=== PATIENT | female | born 1930 | race Caucasian/White ===

== ENCOUNTER 2017-07-24 13:45 | Inpatient (IN) ==
--- NOTE | 2017-07-24 14:04 | Diag Imaging Result Doc PS360 ---
EXAM: CT HEAD W/O CONTRAST HISTORY: POSS. STROKE TECHNIQUE: CT of the head without contrast with dose reduction. COMMENT: The current study is compared without of 10/19/2013. There is an generalized cerebral atrophy and there is abnormal lucency in the periventricular white matter of the frontal lobes and in the external capsule. There are small lacunae present in the basal ganglia on the left and both thalami. The right thalamic abnormality is not as well demonstrated on the previous study but otherwise has been no significant change. Some mucosal thickening and fluid are present in the right sphenoid sinus. This is worse than on the previous examination. IMPRESSION: Chronic ischemic microvascular changes. No evidence of acute disease. Right sphenoid sinusitis. Electronically signed by Bryant Cortez 07/24/2017 2:01 PM
[2017-07-24 15:04] LABS: BASO% 0.1 % (0.0-0.8); HEMATOCRIT 33.9 % (37.0-47.0); HEMOGLOBIN 11.1 g/dL (12.0-16.0); IMM GRAN# 0.22 X1000 (0.0-0.04); IMM GRAN% 2.7 % (0.0-0.5); LYMPH# 0.15 X1000 (1.2-3.4); LYMPH% 1.8 % (20.5-51.1); MANUAL DIFF NEEDED? NO; MCH 39.2 PG (27-31); MCHC 32.7 g/dL (33-37); MCV 119.8 FL (81-99); MONO# 0.19 X1000 (0.11-0.59); MONO% 2.3 % (1.7-9.3); MPV 10.2 FL (7.4-10.4); NEUT% 93.1 % (42.2-75.2); PLT 188 X1000 (130-400); RBC 2.83 XMIL (4.2-5.4)
--- NOTE | 2017-07-24 15:12 | Diag Imaging Result Doc PS360 ---
EXAM: CHEST-PORTABLE HISTORY: hypotension TECHNIQUE: AP portable upright at 1505 COMMENT: There is cardiomegaly. Compared to 05/07/2017 there is been no significant change. IMPRESSION: Cardiomegaly. Electronically signed by Bryant Cortez 07/24/2017 3:10 PM
[2017-07-24 15:24] LABS: INR 3.78; PROTIME 43.2 Seconds (9.2-11.7)
[2017-07-24 15:31] LABS: ALBUMIN 3.6 g/dL (3.5-5.0); POTASSIUM 4.8 mmol/L (3.5-5.1); TOTAL BILIRUBIN 0.89 mg/dL (0.20-1.00)
[2017-07-24 15:36] LABS: URINE MICRO REVIEW NEEDED? NO; URINE SOURCE CATH
[2017-07-24 15:40] LABS: BILIRUBIN URINE NEGATIVE (NEGATIVE); BLOOD URINE SMALL (NEGATIVE); COLOR YELLOW; GLUCOSE URINE NEGATIVE (NEGATIVE); LEUKOCYTES URINE MODERATE (NEGATIVE); NITRITE URINE NEGATIVE (NEGATIVE); PROTEIN URINE TRACE mg/dL (NEGATIVE); SP GRAVITY URINE 1.009; TURBIDITY URINE HAZY (CLEAR); UROBILINOGEN URINE NORMAL (NORMAL)
[2017-07-24 15:42] LABS: UR EPITHELIAL CELLS <10 /HPF (<10); URINE BACTERIA 4+ /HPF; URINE RBC <10 /HPF (<10); URINE WBC <10 /HPF (<10)
--- NOTE | 2017-07-24 17:13 | PROVIDER DOCUMENTATION ---
This chart was entered by Deanna Laurent Scribe, acting as scribe for Shahbaz Ramirez MD. HPI-Neurological Disorder - General Stated Complaint: POSS. STROKE Time Seen by Provider: 07/24/17 13:47 Source: patient Allergies/Adverse Reactions: Patient Allergies Allergy/AdvReac Type Severity Reaction Status Date / Time Penicillins Allergy Intermediate RASH Verified 07/24/17 14:24 Home Medications: Home Medication List Medication Instructions Recorded Confirmed Last Taken Type Carvedilol [Coreg] 25 mg PO BID 10/19/13 12/21/16 12/20/16 20:00 History SIMVAstatin [Zocor] 20 mg PO QHS 10/19/13 12/21/16 12/20/16 20:00 History Losartan [Cozaar] 100 mg PO BID 09/14/14 12/21/16 12/20/16 09:00 History Acetaminophen [Tylenol] 2 each PO Q6-8H PRN PRN 12/21/16 12/21/16 Unknown History Docusate Sodium [Stool Softener] 100 mg PO DAILY PRN 12/21/16 12/21/16 Unknown History Furosemide [Lasix] 20 mg PO DAILY 12/21/16 12/21/16 Unknown History Gabapentin 300 mg PO QHS 12/21/16 12/21/16 12/20/16 20:00 History Hydroxyurea 500 mg PO DAILY 12/21/16 12/21/16 12/20/16 08:00 History Oxybutynin [Ditropan] 5 mg PO DAILY 12/21/16 12/21/16 12/20/16 08:00 History Potassium Chloride [Klor-Con 10] 10 meq PO DAILY 12/21/16 12/21/16 Unknown History Saline Nasal [place] [[place] Nasal 2 each MARILIN DAILY 12/21/16 12/21/16 12/20/16 09:00 History [place]] Tramadol [Ultram] 1 each PO QAM 12/21/16 12/21/16 12/20/16 08:00 History Tramadol [Ultram] 100 mg PO QHS 12/21/16 12/21/16 12/20/16 20:00 History Warfarin [Coumadin] 3 mg PO QHS 12/21/16 12/21/16 12/20/16 20:00 History - History of Present Illness-Neuro Nature of Presenting Problem: Pt is a 86 year old female who came to the ED with a cc of stroke like symptoms starting at 12:00. pt reports she has been weaker than normal, sliding out of the bed, and slurred speech. Pt reports she does not know how to spell her last name. Has fallen twice in the last two days. Severity: reports: mild Onset/Duration: reports: just prior to arrival Timing: reports: still present Context: reports: impaired speech Any recent trauma/injury?: reports: other (unsure) Character of Deficits: reports: new weakness (non focal), impaired speech Cognitive Baseline: alert but confused Gait Baseline: walks without assistance Associated Symptoms: reports: weakness. denies: short of breath, headache, chest pain, neck/back pain, fever/chills, slurred speech, vomiting Similar Symptoms Previously?: No Recently seen or treated by another doctor?: No Review of Systems - Adult - REVIEW OF SYSTEMS - ADULT Constitutional: denies: chills, fever Eyes: reports: no symptoms reported Ears, Nose, Mouth & Throat: reports: no symptoms reported Cardiovascular: denies: chest pain, syncope Respiratory: reports: no symptoms reported Gastrointestinal: denies: diarrhea, nausea, vomiting Genitourinary: reports: no symptoms reported Musculoskeletal: reports: no symptoms reported Integumentary: reports: no symptoms reported Neurological: reports: loss of balance, slurred speech. denies: numbness, seizure Psychiatric: reports: no symptoms reported Endocrine: reports: no symptoms reported Hematologic/Lymphatic: reports: no symptoms reported Allergic/Immunologic: reports: no symptoms reported All Other Systems: Reviewed and Negative Past History - Adult - PAST MEDICAL HISTORY-ADULT Review of Records: reports: Nursing Assessment Review, Medications Reviewed Cardiovascular: reports: HTN, hyperlipidemia Musculoskeletal: reports: arthritis, spinal fracture - PRIOR SURGERIES/PROCEDURES Surgical/Procedure History: reports: cholecystectomy, orthopedic (extremity) ( left wrist), other (Bladder Tack) - IMMUNIZATION STATUS Childhood Immunizations: See Nurse Assessment Flu Vaccine: See Nurse Assessment - SOCIAL HISTORY Smoking: non-smoker Physical Exam- Neurological - Physical Exam-Neuro Initial Vital Signs Reviewed: Yes General Appearance: appears well, alert, no apparent distress Eye Exam: bilateral eye: normal inspection, PERRL, EOMI HENMT: normocephalic/atraumatic, normal ENT inspection, other (tacky MM's). negative: frontal tenderness, maxillary tenderness Head Injury: no evidence of injury. negative: swelling, tenderness Neck: non-tender, full range of motion, supple. 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 Exam: facial asymmetry, facial droop (minimal left lower) Motor/Sensory: no motor deficit, no sensory deficit Neurologic: functional tester typewriters II-XII nml as tested (except some mild left lower facial asymmetry) Integumentary: normal color, warm/dry, other (poor turgor) Psych/Mental Status: normal mood/affect Progress - PLAN OF CARE/RESULTS Progress/Plan/Lab Results: Vital Signs - 8 hr 07/24/17 14:03 Temperature 98.3 F Pulse Rate 106 H Respiratory Rate 19 Blood Pressure 84/53 O2 Sat by Pulse Oximetry 94 L Laboratory Results - last 24 hr 07/24/17 07/24/17 07/24/17 14:46 14:46 14:46 WBC 8.23 RBC 2.83 L Hgb 11.1 L Hct 33.9 L MCV 119.8 H MCH 39.2 H MCHC 32.7 L RDW Std Deviation 22.9 H Plt Count 188 MPV 10.2 Immature Gran % (Auto) 2.7 H Neut % (Auto) 93.1 H Lymph % (Auto) 1.8 L [place] % (Auto) 2.3 Eos % (Auto) 0.0 Baso % (Auto) 0.1 Immature Gran # (Auto) 0.22 H Neut # (Auto) 7.66 H Lymph # (Auto) 0.15 L [place] # (Auto) 0.19 Eos # (Auto) 0.00 Baso # (Auto) 0.01 Segmented Neutrophils Not Reportable PT INR Sodium 139 Potassium 4.8 Chloride 102 Carbon Dioxide 24 L Anion Gap 13 BUN 42 H Creatinine 1.9 H Estimated GFR/1.73 m2 25 BUN/Creatinine Ratio 22 Glucose 82 Calculated Osmolality 287 Calcium 8.0 L Total Bilirubin 0.89 AST 123 H ALT 108 H Alkaline Phosphatase 47 Creatine Kinase 165 Troponin T Uja-F-Skmmxvjtzur Pept 07085 H Total Protein 6.0 L Albumin 3.6 Globulin 2.4 Albumin/Globulin Ratio 1.5 Urine Source Urine Color Urine Turbidity Urine pH Ur Specific [place] Urine Protein Ur Glucose (Stick) Ur Ketones (Stick) Urine Blood Urine Nitrite Urine Bilirubin Urobilinogen Dipstick Urine Leukocytes Urine WBC (Auto) Urine RBC (Auto) U Epithel Cells (Auto) Urine Bacteria (Auto) 07/24/17 07/24/17 07/24/17 14:46 14:46 15:10 WBC RBC Hgb Hct MCV MCH MCHC RDW Std Deviation Plt Count MPV Immature Gran % (Auto) Neut % (Auto) Lymph % (Auto) [place] % (Auto) Eos % (Auto) Baso % (Auto) Immature Gran # (Auto) Neut # (Auto) Lymph # (Auto) [place] # (Auto) Eos # (Auto) Baso # (Auto) Segmented Neutrophils PT 43.2 H INR 3.78 Sodium Potassium Chloride Carbon Dioxide Anion Gap BUN Creatinine Estimated GFR/1.73 m2 BUN/Creatinine Ratio Glucose Calculated Osmolality Calcium Total Bilirubin AST ALT Alkaline Phosphatase Creatine Kinase Troponin T 0.023 Fal-W-Inrpdfoijhq Pept Total Protein Albumin Globulin Albumin/Globulin Ratio Urine Source CATH Urine Color YELLOW Urine Turbidity HAZY Urine pH 5.0 Ur Specific [place] 1.009 Urine Protein TRACE A Ur Glucose (Stick) NEGATIVE Ur Ketones (Stick) NEGATIVE Urine Blood SMALL A Urine Nitrite NEGATIVE Urine Bilirubin NEGATIVE Urobilinogen Dipstick NORMAL Urine Leukocytes MODERATE A Urine WBC (Auto) <10 Urine RBC (Auto) <10 U Epithel Cells (Auto) <10 Urine Bacteria (Auto) 4+ Orders Category Date Time Status Oscar Cath Insertion ORDERED Care 07/24/17 14:22 Active CHEST-PORTABLE [RAD] Stat Exams 07/24/17 14:[address] HEAD W/O CONTRAST [CT] Stat Exams 07/24/17 13:46 Completed CBC WITH ELECTRONIC DIFF [HEME] Stat Lab 07/24/17 14:46 Completed CK PROFILE [SP CHEM] Stat Lab 07/24/17 14:46 Completed COMPREHENSIVE METABOLIC PANEL [CHEM] Stat Lab 07/24/17 14:46 Completed PRO B-NATRIURETIC PEPTIDE Stat Lab 07/24/17 14:46 Completed PROTIME WITH INR [COAG] Stat Lab 07/24/17 14:46 Completed TROPONIN T Stat Lab 07/24/17 14:46 Completed URINALYSIS-1 [URINALYSIS] Stat Lab 07/24/17 15:10 Completed Result Diagrams: 07/24/17 14:46 07/24/17 14:46 - EKG 1 Rate: 101 Rhythm: Afib/flutter with RVR [place]: left QRS: NSIVCD ST Wave: non-specific ST changes - CT/MRI 1 CT Study: Head (chronic ischemic microvascular changes. right sphenoid sinusitis ) - CONSULTS/PCP/HOSPITALIST Notification #1 *Consult/PCP/Hospitalist*: Hospitalist Time Discussed: 16:32 Consult Disposition: Will see in ED, Admit Departure - Departure Date of Disposition Decision: 07/24/17 Time of Disposition Decision: 16:45 DIAGNOSIS: Dehydration, Multiple falls, Atrial fibrillation with rapid ventricular response UTI (urinary tract infection) Qualifiers: Urinary tract infection type: site unspecified Hematuria presence: with hematuria Qualified Code(s): N39.0 - Urinary tract infection, site not specified ; R31.9 - Hematuria, unspecified Hypotension Qualifiers: Hypotension type: unspecified hypotension type Qualified Code(s): I95.9 - Hypotension, unspecified Disposition: ADMITTED INPATIENT 09 Certified Medical Emergency: Emergent Condition: Stable Referrals and Follow-Ups: Carlos Loja MD [Primary Care Provider] - - Critical Care Note This patient required my direct & personal management of CC.: No Attestation - Physician/ ALAINA Attestation Patient care was provided by Advanced Practice Provider:: No The physician spent face to face time with patient:: Yes Advanced Practice Provider documentation review:: Supervising physician onsite and consulted in the evaluation and care of this patient. The physician did have a face to face encounter with the patient. This chart was documented by the indicated scribe, (Deanna Laurent Scribe) and accurately reflects the services I performed and decisions made by me, Shahbaz Ramirez MD, as attested by the provider's signature.
[2017-07-24] MEDS ORDERED: NS 500 ML ONE (17:41)
--- NOTE | 2017-07-24 17:59 | HISTORY AND PHYSICAL ---
HISTORY OF PRESENT ILLNESS: This is an 86-year-old white female, who apparently was doing fairly well at [facility]. I think she is at independent living. But this morning, the last couple days, her niece says she feels it seems to be a little more weak, balance not as well. Her strength is poor, and this morning she somehow fell while she was walking with her walker. She has not eaten today or drank much fluid. The nurse did check her out and did not find anything in particular unusual. She has not had chest pain. No fever or chills. Denied any specific complaints. She is just very tired, not very talkative. Blood pressure was running 60s to 80s systolic when she arrived. Denies any history of dysuria or gross hematuria or abdominal pain, productive cough, pleuritic pain, sore tender joint. She does complain of arthritis. PAST MEDICAL HISTORY: Includes: 1. Congestive heart failure. 2. Hypertension. 3. Hyperlipidemia. 4. Last time she was here in December of this year with shortness of breath and I think at that time she had not taken her Lasix for a couple days. PAST SURGICAL HISTORY: 1. Right hip pinning. 2. Cholecystectomy. ALLERGIES.: Penicillin. SOCIAL HISTORY: No history of smoking or alcohol or illicit drugs. She is in an assisted living facility at [facility]. FAMILY HISTORY: She has a history of coronary artery disease. Otherwise no pertinent history reported. No history of diabetes, and they do not give a history of dementia. REVIEW OF SYSTEMS: Given by the niece. They have not noticed any weight gain or loss. No fever or chills.HEENT: No real change that they could notice in her hearing or visual acuity. Respiratory: No increased work of breathing or dyspnea. Cardiovascular: No chest pain or tachy palpitation. GI/: No gross hematuria or dysuria. Musculoskeletal/Neurologic: No focal complaints. PHYSICAL EXAMINATION: GENERAL: She is sleeping but easy to arouse and she does respond to questions. She seems to be comfortable. VITAL SIGNS: Temperature 98.3 degrees, pulse 106, respirations 19, blood pressure 84/53. HEENT: Pupils are equal. CVP less than 6 cm. LUNGS: Clear anterior lateral. CARDIOVASCULAR: Regular rhythm and rate without murmur or S3. ABDOMEN: Soft, nontender, nondistended. Positive bowel sounds. No hepatosplenomegaly. EXTREMITIES: Without clubbing, cyanosis, or edema. Conjunctivae pink. NECK: The neck is supple. Carotid radial and femoral pulses seem to be 2+ and symmetrical. No cervical, supraclavicular, or axillary adenopathy. Weight 150 pounds. Urine output since she has been here about 350 mL. LAB: White count 8230, hematocrit 33, platelet count 188,000. Sodium 139, potassium 4.3, chloride 102, bicarb 27, BUN 42, creatinine 1.9. Blood sugar was 82. Calcium was 8.0. AST 123, ALT 108, slightly elevated. Troponin was 0.23. ProBNP was 26,838. Albumin 36. ProTime 43. INR 3.78. Urinalysis with 4+ bacteria, moderate amount of leukocytes. IMAGING: Chest x-ray: Some cardiomegaly but otherwise no pulmonary infiltrates. CT of the head: Chronic ischemic microvascular changes but no acute disease. REVIEW OF HER HOME MEDICINES: She takes docusate stool softener 100 mg a day. Lasix 20 mg a day, gabapentin 300 mg p.o. at bedtime, hydroxyurea 500 mg p.o. daily, Cozaar 100 mg b.i.d., Ditropan 5 mg a day, Klor-Con 10 mEq p.o. daily, Zocor 20 mg at bedtime, tramadol 100 mg at bedtime, and also tramadol I think she takes 1 in the morning that may be 100 mg as well. She is on Coumadin 3 mg a day. ASSESSMENT AND PLAN: 1. General lethargy and a little more confusion, metabolic encephalopathy, hypotension. She has not eaten or drank all day. She appears to be a little dry. I am going to give her some volume, normal saline. I am going to hold her losartan. I am going to hold her tramadol for now, and hold her Lasix. The Coreg I am going to cut down to 6.25 twice a day for now. I do not want to take her all way off as I do not think she will have much rebound with 6.25. 2. She has Coumadin toxicity. We are going to hold her Coumadin. No sign of active bleeding at this time. I do not think she needs fresh frozen or vitamin K at this time. 3. I am going to hold her Ditropan. She has a Oscar catheter in right now. 4. She has 4+ bacteria and numerous leukocytes. Not sure if she is symptomatic but I am going to treat her for a urinary tract infection. I will use Levaquin as she is allergic to penicillins. We will give her 500 mg IV daily. 5. Acute renal injury. Looking at her creatinine, back in December it was 0.9 so she has some acute renal insufficiency and I think this is probably prerenal. 6. Her proBNP is 26,000, but she is not volume overloaded at this time but aware of that. I think she needs to have a little fluid volume so I will give her some normal saline. We will check her thyroid and B12 and folate and magnesium, cortisol level in the morning. They give a history of her having phlebotomies, and I do not know if she has had hemochromatosis. I will check a ferritin level to see if we can find anything in her records to that accordance. But right now, hematocrit is 33, platelet count looks good at 188,000. We will check serial cardiac enzymes and EKG. cc: Saroj Moreau MD
[2017-07-24] MEDS ORDERED: COLACE PO PRN (18:19)
[2017-07-24] MEDS: NS 1,000 ML IV SCH (19:36)
[2017-07-24] MEDS: LEVAQUIN 250 MG/D5W 250 MG/50 ML IVPB IV SCH (19:36)
[2017-07-24 20:18] LABS: UR CREAT RANDOM 82.2 mg/dL (11-20)
[2017-07-24] MEDS: COREG PO SCH (22:44)
[2017-07-25 05:54] LABS: BASO% 0.1 % (0.0-0.8); EOS# 0.01 X1000 (0.0-0.7); EOS% 0.1 % (0.0-10.0); HEMATOCRIT 31.1 % (37.0-47.0); IMM GRAN% 13.7 % (0.0-0.5); LYMPH# 0.43 X1000 (1.2-3.4); LYMPH% 3.7 % (20.5-51.1); MANUAL DIFF NEEDED? YES; MCH 38.5 PG (27-31); MCHC 32.2 g/dL (33-37); MCV 119.6 FL (81-99); MONO# 0.55 X1000 (0.11-0.59); MONO% 4.7 % (1.7-9.3); MPV 10.2 FL (7.4-10.4); NEUT% 77.7 % (42.2-75.2); PLT 155 X1000 (130-400)
[2017-07-25 05:59] LABS: ALBUMIN 3.3 g/dL (3.5-5.0); CALCIUM 7.9 mg/dL (8.8-10.2); POTASSIUM 4.7 mmol/L (3.5-5.1); TOTAL BILIRUBIN 0.83 mg/dL (0.20-1.00); TOTAL PROTEIN 5.9 g/dL (6.3-8.3)
[2017-07-25 06:07] LABS: INR 3.53; PROTIME 40.2 Seconds (9.2-11.7); PTT 54.5 Seconds (22.0-36.0)
[2017-07-25 06:14] LABS: FREE T4 0.93 ng/dL (0.93-1.70)
[2017-07-25 06:34] LABS: CK INDEX 2.3 (0.0-2.5); CK-MB 4.98 ng/mL (0.0-5.0)
[2017-07-25 06:37] LABS: BANDS 14 % (0-1); LYMPHS 4 % (21-51); MONO 8 % (1-9)
--- NOTE | 2017-07-25 07:52 | PROGRESS NOTE ---
DATE: 07/25/2017 SUBJECTIVE: Ms. Huizar did not sleep at all last night, but she is much more awake and alert. OBJECTIVE: Temperature 98.1 degrees, pulse 108, respirations 16. Blood pressure 102/66. CVP is less than 6 cm. Lungs are clear in all lung ross. Cardiovascular: Regular rhythm and rate without murmur or S3. Abdomen is soft. Urine output was 1300 mL. LABORATORY DATA: Lab from this morning reviewed. Hematocrit stable at 31. Sodium 141, potassium 4.7, chloride 106, bicarb 23. BUN 45, creatinine 1.6. Liver functions have come down nicely. Transaminases ASSESSMENT AND PLAN: 1. General lethargy and confusion, some hypotension, and she is a little on the dry side. This seems to have improved. I did hold a lot of her medications. 2. Coumadin toxicity. Continue to hold Coumadin. 3. Holding her Ditropan. She has a Oscar catheter in now. I will probably maybe try and stop that this afternoon. 4. 4+ bacteremia. Difficult to know if this is symptomatic, but treating her with IV Levaquin 500 mg a day. 5. Acute renal injury, and we will continue fluids, hopefully will improve. 6. ProBNP was elevated. Looking back at echocardiogram, she has mild systolic dysfunction. Ejection fraction 40%; her last measurement. This was on echo done in December,. I want to watch her today and keep Oscar catheter in, and we may stop the Oscar catheter this afternoon. cc: Saroj Moreau MD
[2017-07-25] MEDS: AYR NASAL SPRAY NAS SCH (08:58)
[2017-07-25] MEDS: COREG PO SCH ×2 (08:58→20:05)
[2017-07-25] MEDS: HYDREA PO SCH (09:11)
[2017-07-25] MEDS: NS 1,000 ML IV SCH (10:48)
[2017-07-25] MEDS ORDERED: CALMOSEPTINE OINTMENT TOP ONE (18:04)
[2017-07-25] MEDS: LEVAQUIN 250 MG/D5W 250 MG/50 ML IVPB IV SCH (18:12)
[2017-07-25] MEDS ORDERED: CORDARONE 150 MG/D5W 150 MG/100 ML IV.SOLN IV ONE (22:00)
[2017-07-25] MEDS ORDERED: CORDARONE 360 MG/D5W 360 MG/200 ML IV.SOLN IV ONE (22:10)
[2017-07-26] MEDS ORDERED: BENADRYL IV ONE (00:14)
[2017-07-26] MEDS: NS 1,000 ML IV SCH (01:52)
[2017-07-26] MEDS: TYLENOL PO PRN ×2 (02:32→13:24)
[2017-07-26] MEDS ORDERED: CORDARONE 540 MG in D5W 289.2 ML IV ONE ×2 (04:00→15:24)
--- NOTE | 2017-07-26 04:20 | PROGRESS NOTE ---
DATE: 07/24/2017 ADDENDUM: Apparently when she 1st arrived she was in atrial fibrillation with rapid rate with blood pressure in the 70s and 80s. I looked back in old echocardiogram, left ventricle at that time this was on December 2016 was normal in size. End-diastolic dimension 4.7 cm. There is no significant left ventricular hypertrophy. Systolic ejection fraction 40% with global hypokinesis. Aortic valve looked like it opened normally, no sign of valvular dysfunction. There was severe left atrial enlargement at 5.3 cm. Right ventricle appeared to be normal size, mild reduction in RV systolic function. Right ventricular systolic pressure about 36, moderate amount of tricuspid regurgitation. So we will try and put her up on CIC, see if we can let her blood pressure come up and give her a little bit of volume. I will keep her on her Coreg and I think she was getting 12.5 twice a day. I will cut that down to 6.25 twice a day and will check an EKG and check cardiac enzymes in the morning as well as T4 and TSH. cc: Saroj Moreau MD
--- NOTE | 2017-07-26 05:49 | EKG Report ---
Test Performed on : 07/25/2017 9:45:47 PM Test Reason : Heart rate change Blood Pressure : / mmHG Vent. Rate : 128 BPM Atrial Rate : 117 BPM P-R Int : 000 ms QRS Dur : 126 ms QT Int : 326 ms P-R-T Axes : 000 -65 109 degrees QTc Int : 475 ms Atrial fibrillation. with rapid ventricular response. Left axis deviation Nonspecific intraventricular block Cannot rule out Septal infarct , age undetermined Possible Lateral infarct , age undetermined Abnormal ECG When compared with ECG of 25-JUL-2017 07:11, (Unconfirmed) [place] has changed. Confirmed by Yang Nunez MD ([id number]) on 07/28/2017 6:16:57 PM
--- NOTE | 2017-07-26 05:49 | EKG Report ---
Test Performed on : 07/25/2017 07:11:13 AM Test Reason : chest pain Blood Pressure : / mmHG Vent. Rate : 117 BPM Atrial Rate : 117 BPM P-R Int : 000 ms QRS Dur : 126 ms QT Int : 378 ms P-R-T Axes : 000 229 046 degrees QTc Int : 527 ms Atrial fibrillation. with premature supraventricular complexes. Right superior axis deviation Nonspecific intraventricular block Possible Inferior infarct , age undetermined Possible Anterolateral infarct , age undetermined Abnormal ECG When compared with ECG of 24-JUL-2017 18:27, (Unconfirmed) [place] has changed. Confirmed by Yang Nunez MD ([id number]) on 07/28/2017 6:12:05 PM
--- NOTE | 2017-07-26 06:20 | EKG Report ---
Test Performed on : 07/24/2017 6:27:45 PM Test Reason : chest pain Blood Pressure : / mmHG Vent. Rate : 117 BPM Atrial Rate : 150 BPM P-R Int : 000 ms QRS Dur : 126 ms QT Int : 362 ms P-R-T Axes : 000 -50 259 degrees QTc Int : 504 ms Atrial fibrillation. with rapid ventricular response. Left axis deviation Nonspecific intraventricular block Possible Inferior infarct , age undetermined Possible Anterolateral infarct (cited on or before 05-MAY-2016) Abnormal ECG When compared with ECG of 24-JUL-2017 14:00, (Unconfirmed) T wave inversion no longer evident in Lateral leads Confirmed by Yang Nunez MD ([id number]) on 07/28/2017 5:52:09 PM
--- NOTE | 2017-07-26 07:54 | EKG Report ---
Test Performed on : 07/26/2017 07:29:16 AM Test Reason : afib Blood Pressure : / mmHG Vent. Rate : 119 BPM Atrial Rate : 119 BPM P-R Int : 000 ms QRS Dur : 118 ms QT Int : 302 ms P-R-T Axes : 000 -63 137 degrees QTc Int : 424 ms Atrial fibrillation. with rapid ventricular response. Left axis deviation Inferior infarct , age undetermined Anteroseptal infarct (cited on or before 25-JUL-2017) Abnormal ECG When compared with ECG of 25-JUL-2017 21:45, (Unconfirmed) Nonspecific T wave abnormality now evident in Inferior leads Confirmed by Yang Nunez MD ([id number]) on 07/28/2017 6:23:23 PM
--- NOTE | 2017-07-26 08:21 | EKG Report ---
Test Performed on : 07/24/2017 2:00:50 PM Test Reason : No Order in [employer] Blood Pressure : / mmHG Vent. Rate : 101 BPM Atrial Rate : 096 BPM P-R Int : 000 ms QRS Dur : 122 ms QT Int : 352 ms P-R-T Axes : 000 -54 214 degrees QTc Int : 456 ms Atrial fibrillation. with rapid ventricular response. Left axis deviation Inferior infarct , age undetermined Anterior infarct (cited on or before 05-MAY-2016) ST \T\ T wave abnormality, consider lateral ischemia Abnormal ECG When compared with ECG of 07-MAY-2017 18:24, T wave inversion more evident in Lateral leads Unconfirmed Result
[2017-07-26] MEDS: HYDREA PO SCH (08:33)
[2017-07-26] MEDS: COREG PO SCH ×2 (08:33→20:11)
[2017-07-26] MEDS: AYR NASAL SPRAY NAS SCH (08:35)
--- NOTE | 2017-07-26 09:41 | PROGRESS NOTE ---
DATE: 07/26/2017 SUBJECTIVE: An 86-year-old at [facility]. Last couple days, she has been very weak. Balance has been poor and she fell while walking with her walker. Then, the following morning, trying to get out of bed, she fell down to the floor, slipped down to the floor. She has not been sleeping and apparently blood pressure has been running 60 to 80s systolic when she got to the emergency room. She has a history of congestive heart failure, hypertension, and hyperlipidemia. She was here last December with shortness of breath. Was given some Lasix and diuresed at that time. She did have Coumadin toxicity, getting Coumadin for atrial fibrillation. Last night, atrial fibrillation with rate accelerated. Did not get any sleep last night. PHYSICAL EXAMINATION: Vital Signs: Temperature 97.6 degrees, pulse 70, respirations 16, blood pressure 117/77. HEENT: Pupils were equal. Neck: No distended neck veins. Lungs: Clear in all lung ross. Cardiovascular Examination: Irregular rhythm and irregular rate without murmur or S3. Abdomen: Soft. Skin: Is warm and dry. Is and Os: Urine output is 2000 mL. LAB: From yesterday reviewed. Hematocrit stable at 31. Chemistries from yesterday, creatinine was 1.6, come down from 1.9. Her EKG shows atrial fibrillation, left axis deviation, loss of anterior forces in the anteroseptal leads. Rate was 120 on this EKG. ASSESSMENT AND PLAN: 1. General lethargy and confusion, weakness, hypotension. [place] she was a little dry. Acute renal injury. I think it is prerenal. Creatinine is improving. Continue to give her some fluids. 2. Atrial fibrillation which I think is chronic. We are holding the Coumadin. She was started on amiodarone. I will Ask cardiology to evaluate to see if we need to pursue cardioversion or just control her rate. 3. Coumadin toxicity. Holding the Coumadin. Her prothrombin time this morning is down to 40. When she came in, it was 43. INR is 3.53. She shows no sign of active bleeding. I do not think we need fresh frozen or vitamin K at this point. 4. Bacteremia. We gave her some Levaquin. She had 4+ bacteriuria so difficult to know if this was really asymptomatic urinary tract infection but treating accordingly, treating as if it is an infection. 5. Acute renal injury. I suspect most of this is prerenal. 6. ProBNP elevated. Echocardiogram in the past showed ejection fraction of 40%. Echocardiogram done in December of 2016 with dilated atrium. We will ask cardiology to help decide how to manage her atrial fibrillation. cc: Saroj Moreau MD
[2017-07-26] MEDS ORDERED: LASIX IV ONE (12:09)
--- NOTE | 2017-07-26 12:37 | CONSULTATION ---
DATE OF CONSULTATION: 07/26/2017 DIAGNOSES: 1. Heart failure. 2. Atrial fibrillation. 3. Rapid ventricular rate. HISTORY OF PRESENT ILLNESS: Ms. Sol Huizar is an 86-year-old lady, who is at the [facility] the last couple of days. She has been noticing having more weakness and unable to move, and has noticed low blood pressure was as well. Blood pressures were running into the 60s and 80s systolic. She was admitted here with significant weakness and was noted to be in atrial fibrillation with rapid ventricular rate. She has chronic atrial fibrillation. She was diagnosed to have urinary tract infection for which she has been treated on with medications. She denies any chest pain. At the time of my examination, patient denies chest pain. She feels that she is more short of breath as well. REVIEW OF SYSTEMS: A 14-point review of system was done. GI System: There is no history of nausea, vomiting, diarrhea. There is no history of hematemesis or melena. Central nervous system: No focal weakness to suggest a CVA or TIA. : As above. Endocrine System: Stable. PAST MEDICAL HISTORY: LV dysfunction, severe mitral regurgitation, chronic atrial fibrillation, anticoagulation therapy, history of systolic heart failure, hypertension, hyperlipidemia, essential hemorrhagic thrombocythemia, and a history of polycythemia followed by oncology services. HOME MEDICATIONS: Coreg 25 mg twice a day, losartan 100 mg, simvastatin 20, Lasix 20 mg p.o., hydralazine 25 mg twice daily, Coumadin, potassium supplements, hydroxyurea, gabapentin, oxybutynin. ALLERGIES: Patient is allergic to penicillin. SOCIAL HISTORY: She does not smoke. Does not drink. PHYSICAL EXAMINATION: Vital Signs: Blood pressure was 117/77. When she came in to the hospital, she had low blood pressures in 84, then systolic in the 90s. Cardiovascular: Jugular venous pressure was normal. There was systolic murmur in the mitral area. Lungs: Bibasilar inspiratory crepitations were noted. Abdomen: Soft, nontender. There was no guarding or rigidity. Bowel sounds were heard. Central nervous system: Alert, oriented, was moving all 4 extremities. Extremities: Revealed no pedal edema. ASSESSMENT AND PLAN: Ms. Sol Huizar is an 86-year-old lady who has left ventricular dysfunction, severe mitral regurgitation, chronic atrial fibrillation, history of heart failure is noted to have low blood pressures in the 80s as well as increasing weakness. When she came in, she had atrial fibrillation, which has been chronic with rapid rate. She was started on amiodarone intravenously to control the rate as well as she was hypotensive. RECOMMENDATIONS: 1. As far as atrial fibrillation is concerned, this is chronic atrial fibrillation in the setting of LV dysfunction and severe mitral regurgitation. Cardioversion will not be helpful as this is a chronic issue, and she will revert back into atrial fibrillation. So I would discontinue her on IV amiodarone since that this is been started. Change her to amiodarone p.o., as if the rate would be better controlled with that, she would not revert into heart failure more frequently. 2. History of left ventricular dysfunction with congestive heart failure. We will get a limited echocardiogram to assess left ventricular function again. I will discontinue the intravenous fluids, as she is more short of breath with inspiratory crackles at the present time. I will get a chest x-ray and give her Lasix IV 40 mg now and put her back on 20 mg Lasix daily. 3. She has been noted to be hypotensive in spring. Will decrease her Coreg to 12.5 mg twice a day, cut her losartan to 50, and hold off on her hydralazine which she had been taking at home. 4. As far as anticoagulation therapy is concerned, we will recheck her PT/INR restart when her INR is at 2.5. She has thrombocythemia, is on hydroxyurea at home and is followed by oncology. I have not made any changes. Thank you for the consult. We will follow hospital course. cc: Braden Lopez MD
--- NOTE | 2017-07-26 12:39 | Diag Imaging Result Doc PS360 ---
CHEST-PORTABLE - 07/26/2017 INDICATION: dyspnea TECHNIQUE: COMPARISON: 07/24/2017 FINDINGS: Stable cardiomegaly. There is worsening pulmonary vascular congestion. No obvious infiltrates or edema. There are probably trace pleural effusions. IMPRESSION: Perhaps slight worsening pulmonary vascular congestion. Electronically signed by Leonardo Clarke 07/26/2017 12:36 PM
--- NOTE | 2017-07-26 13:35 | EKG Report ---
Test Performed on : 07/26/2017 1:14:15 PM Test Reason : CP Blood Pressure : / mmHG Vent. Rate : 123 BPM Atrial Rate : 108 BPM P-R Int : 000 ms QRS Dur : 128 ms QT Int : 364 ms P-R-T Axes : 000 -57 118 degrees QTc Int : 521 ms Atrial fibrillation. with rapid ventricular response. Left axis deviation Nonspecific intraventricular block Inferior infarct , age undetermined Cannot rule out Anteroseptal infarct , age undetermined Abnormal ECG When compared with ECG of 26-JUL-2017 13:13, (Unconfirmed) No significant change was found Confirmed by Yang Nunez MD ([id number]) on 07/28/2017 6:28:26 PM
[2017-07-26] MEDS ORDERED: LANOXIN IV ONE (15:26)
[2017-07-26] MEDS: LEVAQUIN 250 MG/D5W 250 MG/50 ML IVPB IV SCH (17:38)
[2017-07-27 05:57] LABS: CALCIUM 8.1 mg/dL (8.8-10.2); MAGNESIUM 2.1 mg/dL (1.5-2.7); POTASSIUM 3.7 mmol/L (3.5-5.1)
[2017-07-27 05:58] LABS: INR 1.95; PROTIME 21.4 Seconds (9.2-11.7)
[2017-07-27] MEDS: COZAAR PO SCH (08:02)
[2017-07-27] MEDS: HYDREA PO SCH (08:02)
[2017-07-27] MEDS: CORDARONE PO SCH ×2 (08:02→21:07)
[2017-07-27] MEDS: AYR NASAL SPRAY NAS SCH (08:03)
[2017-07-27] MEDS: COREG PO SCH ×2 (08:03→21:07)
[2017-07-27] MEDS: LASIX PO SCH (08:03)
[2017-07-27] MEDS ORDERED: CORDARONE PO SCH (09:00)
[2017-07-27] MEDS: MAXIPIME 1 GM in NS 50 ML IV SCH ×2 (11:06→21:08)
--- NOTE | 2017-07-27 18:08 | PROGRESS NOTE ---
DATE: 07/27/2017 SUBJECTIVE: Today Ms. Huizar referred to be doing relatively fine. She denies any acute medical problem. She was actually in the midst of doing an echocardiogram. OBJECTIVE: Vital signs: Blood pressure is 109/76, pulse of 99, respirations 18, temperature 97.7 degrees. General: Ms. Huizar is an 86-year-old very pleasant, female. She is in bed, in no distress. HEENT: Mucosa is pink and moist. Anicteric. Acyanotic. Neck: Supple. Chest: Good air entry bilaterally. There is bilateral posterior crepitations. No rhonchi. Cardiovascular: Regular rate and rhythm. Abdomen: Soft, nontender. Bowel sounds are present. Extremities: No pedal edema. EMD SPECIAL EDUCATION TEACHER: Patient is awake and alert. No focal neurological deficit. Cardiac. LABORATORY DATA: Sodium is 145, potassium is 3.7, chloride is 108, bicarb is 22, creatinine is 1.4. I's and O's: Oscar output is 1500 for a total balance of 297 positive balance. Blood culture is positive for E coli. MEDICATIONS: Include: 1. Amiodarone 400 b.i.d. 2. Carvedilol 12.5 b.i.d. 3. Cefepime 1 g q.12. 4. Furosemide 20 mg daily. 5. Hydroxyurea. ASSESSMENT: 1. Hypotension on presentation which is multifactorial including sepsis as well as low cardiac output from atrial fibrillation, RVR. 2. Escherichia coli bacteremia likely from urinary tract infection. 3. Generalized weakness due to underlying sepsis as well as low perfusion from low cardiac output. 4. Atrial fibrillation, RVR on presentation. Currently rate controlled. 5. History of congestive heart failure with ejection fraction of 40%, likely acute on chronic. So today we will switch Ms. Huizar's antibiotics to cefepime because it resistant to levofloxacin which patient was on. We will continue the IV antibiotics for a total of 10 days. In terms of the atrial fibrillation, this seems to be rate controlled. We will continue with amiodarone and carvedilol for rate control. Patient is in the midst of doing an echocardiogram. We will follow up with the results. cc: Blaine Sam MD
[2017-07-28 05:22] LABS: BASO% 0.1 % (0.0-0.8); EOS# 0.01 X1000 (0.0-0.7); EOS% 0.1 % (0.0-10.0); HEMATOCRIT 29.9 % (37.0-47.0); HEMOGLOBIN 9.9 g/dL (12.0-16.0); IMM GRAN# 0.06 X1000 (0.0-0.04); IMM GRAN% 0.8 % (0.0-0.5); LYMPH# 0.67 X1000 (1.2-3.4); LYMPH% 9.4 % (20.5-51.1); MANUAL DIFF NEEDED? YES; MCHC 33.1 g/dL (33-37); MCV 117.7 FL (81-99); MONO# 0.38 X1000 (0.11-0.59); MONO% 5.3 % (1.7-9.3); MPV 10.7 FL (7.4-10.4); NEUT% 84.3 % (42.2-75.2); PLT 137 X1000 (130-400); RBC 2.54 XMIL (4.2-5.4)
[2017-07-28 05:40] LABS: CALCIUM 8.3 mg/dL (8.8-10.2); POTASSIUM 3.1 mmol/L (3.5-5.1)
[2017-07-28 06:00] LABS: LYMPHS 4 % (21-51); MONO 3 % (1-9)
[2017-07-28] MEDS ORDERED: KLOR-CON PO ONE (06:05)
[2017-07-28] MEDS: ZOFRAN IV PRN ×2 (06:25→21:06)
--- NOTE | 2017-07-28 08:26 | ECHO REPORT ---
ORDER DATE: 07/26/2017 INDICATIONS: This is a limited study done to evaluate ejection fraction. Definity echo contrast was used. FINDINGS: 1. There is no clear evidence of mitral valve prolapse. There is a significant amount of mitral annular calcification noted. 2. The left ventricle ejection fraction is difficult to estimate. Irregularity of the heart rhythm, as well as heart rates in the 100s to 110s make this difficult. Definity echo contrast was used to help opacify the left ventricle. Overall, I believe the ejection fraction is on the order of 35-40% with global hypokinesis. 3. The right ventricle appears to be normal in size with mild reduction in RV systolic function. 4. On some views, there appears to be a nodular type density at the base of the left ventricle in the pericardial space. This appears to be a small mass-like structure. It is approximately 0.7 cm in dimension. 5. There is moderate left atrial enlargement. Normal right atrial size. 6. No pericardial effusion was identified. 7. No Doppler evaluations were performed. cc: MD Della Daily PA
[2017-07-28] MEDS: MAXIPIME 1 GM in NS 50 ML IV SCH (08:57)
[2017-07-28] MEDS: CORDARONE PO SCH (08:57)
[2017-07-28] MEDS: COZAAR PO SCH (08:58)
[2017-07-28] MEDS: AYR NASAL SPRAY NAS SCH (08:58)
[2017-07-28] MEDS: LASIX PO SCH (08:58)
[2017-07-28] MEDS: COREG PO SCH ×2 (08:58→21:06)
[2017-07-28] MEDS: HYDREA PO SCH (08:59)
--- NOTE | 2017-07-28 15:00 | PROGRESS NOTE ---
DATE: 07/28/2017 SUBJECTIVE: Today Ms. Huizar refers to be feeling remarkably weaker. She has had 2 bowel movements today, diarrhea according to the family member at the bedside. OBJECTIVE: Vital signs: Blood pressure is 112/88, pulse of 50, respirations 16, temperature 98.7 degrees. General: Ms. Huizar is an 86-year-old female. She is in bed. She did not seem to be in any distress. HEENT: Mucosa is pink and moist. Anicteric. Acyanotic. Neck: Supple. Chest: Air entry is bilaterally reduced. There are a few bibasilar crepitations. Cardiovascular: Regular rate and rhythm. No murmurs, no rubs, no gallops. Abdomen: Soft, distended, but nontender. Bowel sounds are present. Extremities: No pedal edema. 3RD GRADE READING TEACHER: Patient is awake and alert. Oriented. There is no focal neurological deficit. LABORATORY/X-RAY DATA: 1. WBC is 7.16, hemoglobin is 9.9, platelet count of 137. 2. Chemistry: Sodium is 145, potassium is 3.1, chloride is 109, bicarbonate is 21, creatinine is 1.2. This is getting better. 3. An echocardiogram: A limited view which was done shows an ejection fraction of 35% to 40% with global hypokinesis. ASSESSMENT: 1. Hypotension on presentation which we think is secondary to sepsis and also low cardiac output from atrial fibrillation rapid ventricular response. 2. Escherichia coli bacteremia likely from urine tract infection. Patient had the same Escherichia coli in the urine in 1999 in December of this year. 3. Generalized weakness due to underlying sepsis. 4. Atrial fibrillation with rapid ventricular response, currently rate controlled. 5. Congestive heart failure. Ejection fraction is 35% to 40%. 6. Diarrhea, likely secondary to antibiotic side effects. We will however go ahead and do Clostridium difficile antigen and toxin to make sure that we will treat this adequately since patient is on antibiotics. 7. Acute kidney injury, improving. PLAN: So, in terms of disposition, the patient is from [facility]. I think at this point she will need to be evaluated from physical therapy standpoint to see if she will be a candidate to go back or she will need to go for rehab. We will consult PT for evaluation. cc: Blaine Sam MD
[2017-07-28 15:27] LABS: INR 1.51; PROTIME 16.3 Seconds (9.2-11.7)
--- NOTE | 2017-07-28 18:00 | Diag Imaging Result Doc PS360 ---
CT THORAX W/O CONTRAST - 07/28/2017 INDICATION: retrocardiac mass, evaluate, chf TECHNIQUE: A CT dose reduction protocol was used. COMPARISON: 12/20/2016 FINDINGS: Stable significant cardiomegaly. Stable significant calcification of the mitral valve annulus. Stable significant calcified coronary artery disease. Stable shotty, nonspecific mediastinal lymph nodes. No abnormal mass. There is slight worsening in the trace bilateral pleural effusions. Lung volumes are lower with some crowding particularly at the left lower lobe. There is some dependent atelectasis. There is some mild, coarse pulmonary fibrosis in the lung bases. There is also some air trapping compatible with COPD. No substantial pulmonary edema. There is a hiatal hernia. Upper abdominal images are unchanged. There are moderate degenerative changes of the spine. No acute or suspicious bony lesion. IMPRESSION: Slight worsening in trace pleural effusions. Cardiomegaly. Mild pulmonary fibrosis. Nonspecific dependent atelectasis in the left lung. No evidence of mass. No significant pulmonary edema. Electronically signed by Leonardo Clarke 07/28/2017 5:58 PM
[2017-07-28] MEDS: ROCEPHIN 2 GM in NS 50 ML IV SCH (18:21)
--- NOTE | 2017-07-29 03:20 | CONSULTATION ---
DATE OF CONSULTATION: 07/28/2017 CONCLUSION: Patient has an E. coli bacteremia and UTI. She also has metal titanium pins which she had to have inserted in her legs due to fractures. RECOMMENDATIONS: I agree with Dr. Sam's decision to switch the patient to daily Rocephin. I have started it at 2 g IV every 24 hours. DISCUSSION: The patient was admitted to the hospital. She had an altered mental status and fell. She has been found to have blood cultures positive for E. coli. She also had a urinalysis which showed white cells and bacteria but I could not find a urine culture. The patient's laboratory studies, the CBC shows a white count of 7160, hemoglobin 9.9, and platelet count 137,000. Creatinine is 1.2. GFR is 41. Echocardiogram revealed no vegetations. Chest x-ray shows pulmonary vascular congestion. OPTHALMIC TECH HISTORY: She is a 2, para, 2 AB 0. PREVIOUS HOSPITALIZATIONS AND OPERATIONS: She has had labor and deliveries. She has had multiple fractures including her femur, wrist, and vertebrae. She has had insertion of metal into some of her bones. The patient had insertion of a titanium meño in her femur. She has been hospitalized because of renal calculi. She has also had a cholecystectomy. MEDICAL DISEASES: Positive for hypertension, atrial fibrillation, congestive heart failure, and hyperlipidemia. INFECTIOUS DISEASE HISTORY: Positive for urinary tract infection and shingles. FAMILY HISTORY: Positive for diabetes mellitus, congestive heart failure, Parkinson's disease, and cancer. SOCIAL HISTORY: [place] She is a . She has a cat as a pet. She lives alone. The patient does not smoke cigarettes, drink alcoholic beverages, or abuse drugs. ALLERGIES: She has an allergy to penicillin manifested by rash but she tolerated cefepime well. Therefore, I think she will tolerate ceftriaxone well. HOME MEDICATIONS: Home medications include fexofenadine, Ultram, Apresoline, Cozaar, gabapentin, Lasix, docusate, Coreg, Tylenol, Zocor, potassium, Ditropan, hydroxyurea, and Coumadin. PHYSICAL EXAMINATION: Vital Signs: Temperature is 97.5 degrees, pulse 122, respirations 24, blood pressure 126/75. Patient is 5 feet 5 inches tall and weighs 152 pounds. General: This is a chronically ill-appearing, elderly female. She is in no acute distress. Head, Eyes, Ears, Nose, and Throat: She can hear my spoken words and see near objects. No drainage is noted from the nose or ears. Neck: No meningismus. Thorax: No increased AP diameter of the chest. Lungs: Clear to auscultation. Cardiovascular: Regular heart rate. Abdomen and Flanks: Soft and nontender. Neurologic: Patient is awake. She can move her extremities. There is no tremor. Her sensation is intact to touch. Her memory, as regarding her medical history, was slightly diminished. Integument: No rash noted. Thank you for the consult. cc: Apolinar Duke MD
[2017-07-29 05:19] LABS: INR 1.48; PROTIME 15.9 Seconds (9.2-11.7)
[2017-07-29 05:27] LABS: EOS# 0.02 X1000 (0.0-0.7); EOS% 0.4 % (0.0-10.0); HEMATOCRIT 30.9 % (37.0-47.0); HEMOGLOBIN 10.4 g/dL (12.0-16.0); IMM GRAN% 1.8 % (0.0-0.5); LYMPH% 14.1 % (20.5-51.1); MANUAL DIFF NEEDED? NO; MCH 39.5 PG (27-31); MCHC 33.7 g/dL (33-37); MCV 117.5 FL (81-99); MONO# 0.49 X1000 (0.11-0.59); MONO% 8.6 % (1.7-9.3); MPV 10.6 FL (7.4-10.4); NEUT% 75.1 % (42.2-75.2); PLT 169 X1000 (130-400); RBC 2.63 XMIL (4.2-5.4)
[2017-07-29 05:36] LABS: CALCIUM 7.8 mg/dL (8.8-10.2); MAGNESIUM 2.2 mg/dL (1.5-2.7)
[2017-07-29] MEDS: AYR NASAL SPRAY NAS SCH (09:07)
[2017-07-29] MEDS: HYDREA PO SCH (09:07)
[2017-07-29] MEDS: LASIX PO SCH (09:07)
[2017-07-29] MEDS: COZAAR PO SCH (09:07)
[2017-07-29] MEDS: CORDARONE PO SCH (09:07)
[2017-07-29] MEDS: COREG PO SCH ×2 (09:07→20:21)
[2017-07-29] MEDS: TYLENOL PO PRN ×2 (09:13→19:16)
--- NOTE | 2017-07-29 09:25 | PROGRESS NOTE ---
DATE: 07/29/2017 PRESENT ILLNESS: The patient has an Escherichia coli bacteremia and urinary tract infection. Unfortunately, she has titanium pins present in her legs due to fractures. MEDICATIONS: The patient is on Rocephin 2 g IV every 24 hours. She was started out on Levaquin. However, the organism from her urine and blood is resistant to Levaquin. She was changed to Rocephin on the 26 of July. Therefore, today is day 3 of her antibiotic. PHYSICAL EXAMINATION: Vital Signs: Temperature is 98.1 degrees, pulse 100, respirations 16, blood pressure 137/90. General: This is an ill-appearing, elderly female. She is in no acute distress. Lungs: Clear to auscultation. Cardiovascular: Irregular heart rate. Abdomen and flanks: Soft and nontender. Neurologic: Patient is slightly lethargic. She states she was unable to get to sleep all night. LAB AND X-RAY: CBC shows a white count of 5,690, hemoglobin 10.4, and platelet count of a 169,000. Creatinine is 1.2. GFR is 43. ASSESSMENT AND PLAN: Patient has an Escherichia coli bacteremia secondary to an Escherichia coli urinary tract infection. I have ordered a renal ultrasound to make sure that she does not have an abscess or that she does not have an obstruction to her kidneys. Ideally I would like to test whether she can empty fully her bladder. However, at this time, she has a Oscar catheter in place. I would suggest treating with Rocephin for 6 weeks because, as mentioned above, the titanium rods in her legs may have become infected while the patient was bacteremic. When there is a chance that metal is infected I treat for 6 weeks with usually an IV antibiotic and then if possible I would put her on a low dose of an antibiotic to keep any remaining infection suppressed. The patient's comorbidities include that she is elderly and she has previously had a urinary tract infection. cc: Apolinar Duke MD
--- NOTE | 2017-07-29 10:15 | Diag Imaging Result Doc PS360 ---
EXAM: US RENAL 2 (RETROPER) COMPLETE HISTORY: R/O renal abscess and obstruction TECHNIQUE: Renal ultrasound COMMENT: The kidneys are somewhat hyperechoic in appearance and lobulated in contour. There is no evidence of hydronephrosis. There is a 1.6 cm cyst in the upper mid right kidney. There is a 2.1 cm cyst in the upper midportion of the left kidney. The bladder is not distended and there is a Oscar catheter in place. IMPRESSION: Possibility of medical renal disease cannot be excluded. Bilateral renal cysts. Electronically signed by Bryant Cortez 07/29/2017 10:12 AM
[2017-07-29] MEDS: ROCEPHIN 2 GM in NS 50 ML IV SCH (17:57)
--- NOTE | 2017-07-29 18:08 | PROGRESS NOTE ---
DATE: 07/29/2017 SUBJECTIVE: Today Ms. Huizar refers to be doing a lot better. Complained that she has not been able to sleep for the past 5 days. OBJECTIVE: Vital signs: Blood pressure is 101/72, pulse of 79, respirations 18, temperature is 98. General: Ms. Huizar is an 86-year-old female. She is in bed, not in any distress. HEENT: Mucosa is pink and moist. Anicteric and acyanotic. Neck: Supple. Chest: Good air entry bilaterally. No crepitations. No rhonchi. Cardiovascular: Regular rate and rhythm. There are no murmurs, no rubs, no gallops. Abdomen: Soft. Extremities: No pedal edema. TIMBER ESTIMATOR: Patient is awake and alert. There is no focal neurological deficit. LABORATORY DATA: Has been reviewed. WBC is 5.69, hemoglobin is 10.4, platelet count of 169,000. Chemistry is also reviewed, potassium is now normalized. Creatinine is 1.2 today. A renal ultrasound which was done is unremarkable except for possible Raynaud's disease, chronic medical renal disease. ASSESSMENT: 1. Hypotension on presentation. This is improved. We think it is due to sepsis with also low cardiac output from atrial fibrillation, rapid ventricular response. 2. E. coli urinary tract infection with bacteremia. The patient has been evaluated by Dr. Duke and there is a plan to treat her for 6 weeks because she has a titanium plate in her hip and there is the fear that this could have been seeded. 3. Generalized weakness. We will continue with physical therapy. 4. Atrial fibrillation with rapid ventricular response. Currently rate controlled. 5. Congestive heart failure with ejection fraction of 35-40%. Patient is now euvolemic and stable. 6. Diarrhea secondary to antibiotic side effects. It is controlled. 7. Acute kidney injury. Improving. 8. Insomnia. We will start the patient on melatonin to help her with her sleep. PLAN: So today we are going to discontinue the Oscar catheter. We are also awaiting the 2nd blood culture to make sure it is completely negative, and then we will consult PICC line team to put in a PICC line for long-term antibiotic. Patient has been started on ceftriaxone. cc: Blaine Sam MD
[2017-07-29] MEDS: MELATONIN PO SCH (20:21)
[2017-07-30] MEDS: TYLENOL PO PRN (02:36)
[2017-07-30 05:20] LABS: BASO% 0.2 % (0.0-0.8); EOS# 0.03 X1000 (0.0-0.7); EOS% 0.5 % (0.0-10.0); HEMATOCRIT 30.6 % (37.0-47.0); HEMOGLOBIN 10.1 g/dL (12.0-16.0); IMM GRAN# 0.11 X1000 (0.0-0.04); IMM GRAN% 1.8 % (0.0-0.5); LYMPH# 0.99 X1000 (1.2-3.4); MANUAL DIFF NEEDED? NO; MCH 38.8 PG (27-31); MCV 117.7 FL (81-99); MONO# 0.73 X1000 (0.11-0.59); MONO% 11.8 % (1.7-9.3); MPV 10.6 FL (7.4-10.4); NEUT% 69.7 % (42.2-75.2); PLT 178 X1000 (130-400)
[2017-07-30 05:34] LABS: ALBUMIN 3.1 g/dL (3.5-5.0); CALCIUM 8.1 mg/dL (8.8-10.2); POTASSIUM 3.9 mmol/L (3.5-5.1); TOTAL BILIRUBIN 0.44 mg/dL (0.20-1.00); TOTAL PROTEIN 5.5 g/dL (6.3-8.3)
[2017-07-30] MEDS ORDERED: ULTRAM PO ONE (06:35)
[2017-07-30] MEDS ORDERED: NS 250 ML ONE (08:06)
[2017-07-30] MEDS: ZOFRAN IV PRN (08:33)
[2017-07-30 08:37] LABS: INR 1.5; PROTIME 16.2 Seconds (9.2-11.7)
--- NOTE | 2017-07-30 09:26 | Diag Imaging Result Doc PS360 ---
EXAM: CHEST-PORTABLE INDICATION: PICC placement TECHNIQUE: One view COMPARISON: 07/26/2017 FINDINGS: There is a newly placed right PICC line. The tip projects over the lower SVC just superior to the atriocaval junction. Pulmonary venous congestion appears to be worsening slightly. There now appears to be a small left pleural effusion. Cardiac silhouette is stable. IMPRESSION: 1.Interval placement of right PICC line as described. 2.Apparent marginal worsening of pulmonary venous congestion and development of a small left pleural effusion. Electronically signed by Raghu Naqvi 07/30/2017 9:24 AM
[2017-07-30] MEDS: COZAAR PO SCH (09:57)
[2017-07-30] MEDS: LASIX PO SCH (09:57)
[2017-07-30] MEDS: CORDARONE PO SCH (09:57)
[2017-07-30] MEDS: COREG PO SCH ×2 (09:58→21:19)
[2017-07-30] MEDS: HYDREA PO SCH (09:58)
--- NOTE | 2017-07-30 12:48 | PROGRESS NOTE ---
DATE: 07/30/2017 PRESENT ILLNESS: The patient has an Escherichia coli urinary tract infection and bacteremia secondary to the urinary tract infection. The patient also has titanium pin in her femur. MEDICATIONS: This is day 4 of treatment with Rocephin in a dose of 2 g IV every 24 hours. PHYSICAL EXAMINATION: Vital Signs: Temperature is 97.8 degrees, pulse 105, respirations 21, blood pressure 109/71. General: This is an ill-appearing, elderly female. She is in no acute distress. Lungs: Clear to auscultation. Cardiovascular: Heart rate is irregular. Abdomen: And flanks soft and nontender. Extremities: There is no swelling or erythema in either hip. LAB AND X-RAY: CBC shows a white count of 6200, hemoglobin 10.1, and platelet count 178,000. Creatinine is 1.3. The GFR is 39. The patient had a renal ultrasound yesterday and it showed that the patient could have medical renal disease and she has bilateral renal cyst but there was no evidence of any blockage. ASSESSMENT AND PLAN: The patient has an Escherichia coli bacteremia secondary to Escherichia coli urinary tract infection. I am going to be treating the patient for 6 weeks with IV Rocephin because she has a titanium meño in her which may have become infected hematogenously. Following that, I plan to put the patient on a low dose of an antibiotic to which the organism is susceptible. In this patient's case, the antibiotic could be Septra most likely. T he patient's Oscar catheter has been taken out and I am going to go ahead and get a bladder scan to make sure she fully empties her urine. COMORBIDITIES: She is elderly. She unfortunately has a titanium pin in her. Also she has had urinary tract infections in the past. ADDENDUM: Post void residual urine was 50 ml as per bladder scan. cc: Apolinar Duke MD MTDD
[2017-07-30] MEDS: AYR NASAL SPRAY NAS SCH (15:57)
[2017-07-30] MEDS: ROCEPHIN 2 GM in NS 50 ML IV SCH (17:50)
--- NOTE | 2017-07-30 18:23 | PROGRESS NOTE ---
DATE: 07/30/2017 SUBJECTIVE: Today Ms. Huizar referred to be doing relatively fine. Still has some generalized weakness but no acute issues. OBJECTIVE: Vital signs: Blood pressure is 136/50, pulse rate of 77 respiration is 12, temperature 97.4 degrees. Patient was saturating 96% on room air. General: Ms. Huizar is an 86- year-old female. She was in bed. Not in any distress. HEENT: Mucosa is pink and moist. Anicteric. Acyanotic. Neck: Supple. Chest: Good air entry bilateral. A few bibasilar crepitations. Cardiovascular: Regular rate and rhythm. There is no murmurs. No rubs, no gallops. Abdomen: Soft, nontender. Bowel sounds are present. No hepatosplenomegaly. 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 There is no focal neurological deficit. LABORATORY DATA: WBC is 6.20, hemoglobin is 10.1, platelet count of 178,000. Chemistry was reviewed, completely normal. Creatinine is slightly up to 1.3. ASSESSMENT: 1. Hypotension on presentation. Improved. We think it was related to sepsis as well as low cardiac output from atrial fibrillation with rapid ventricular response. 2. Escherichia coli urinary tract infection and bacteremia. The patient will be on ceftriaxone for 6 weeks because of the titanium plate she has in her hip. She just got a PICC line for long-term antibiotic therapy. 3. Generalized weakness. Patient will continue with physical therapy. 4. Atrial fibrillation RVR, currently rate controlled. 5. Congestive heart failure with ejection fraction of 35-40%. The patient is now euvolemic and stable. 6. Diarrhea secondary to antibiotic side effects. Resolved. 7. Acute kidney injury improved. Improving. 8. Insomnia. The patient has been started on melatonin and she refers to have gotten some sleep last night. PLAN: In general, I think Ms. Huizar is medically stable. She is from [facility] and she needs long-term antibiotics which cannot be given to her [place]. Social workers are now looking about rehab SNIFF so that she will probably get both physical rehabilitation as well as the antibiotics. cc: Blaine Sam MD
[2017-07-30] MEDS: ULTRAM PO PRN (21:19)
[2017-07-30] MEDS: MELATONIN PO SCH (21:19)
[2017-07-30] MEDS: CALMOSEPTINE OINTMENT TOP PRN (21:27)
[2017-07-31] MEDS: HYDREA PO SCH (08:08)
[2017-07-31] MEDS: COZAAR PO SCH (08:08)
[2017-07-31] MEDS: COREG PO SCH ×2 (08:08→20:50)
[2017-07-31] MEDS: CORDARONE PO SCH (08:09)
[2017-07-31] MEDS: LASIX PO SCH (08:10)
[2017-07-31] MEDS: AYR NASAL SPRAY NAS SCH (08:10)
[2017-07-31] MEDS: ULTRAM PO PRN ×2 (08:23→20:50)
[2017-07-31] MEDS: ROCEPHIN 2 GM in NS 50 ML IV SCH (17:14)
[2017-07-31] MEDS: CALMOSEPTINE OINTMENT TOP PRN (20:00)
[2017-07-31] MEDS: MELATONIN PO SCH (20:50)
[2017-08-01] MEDS: TYLENOL PO PRN (06:18)
[2017-08-01] MEDS: CALMOSEPTINE OINTMENT TOP PRN (06:20)
--- NOTE | 2017-08-01 07:18 | PROGRESS NOTE ---
DATE: 07/31/2017 SUBJECTIVE: Today, Ms. Huizar referred to be doing a lot better. She was actually sitting up in the chair. Her adult son was also at the bedside. OBJECTIVE: Vital Signs: Blood pressure is 113/67, pulse 92, respirations are 18, temperature is 97 degrees. General Examination: Ms. Huizar is an 86-year-old, female. She is sitting up in the chair. She was not in any distress. HEENT: Mucosa is pink and moist. Anicteric and acyanotic. Neck: Supple. Chest: Good air entry bilateral. No crepitations. No rhonchi. Cardiovascular: Regular rate and rhythm. No murmurs, no rubs, no gallops. Abdomen: Soft, nontender. Bowel sounds are present. There is no hepatosplenomegaly. 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 There is no focal neurological deficit. Laboratory Data: None for today. ASSESSMENT: 1. Hypotension on presentation which has improved. This was associated with sepsis and low cardiac output from atrial fibrillation with rapid ventricular response. 2. E. coli urinary tract infection and E. coli bacteremia. The patient is currently on ceftriaxone for 6 weeks' therapy because of a titanium plate in her hip. 3. Generalized weakness. We will continue with physical therapy. 4. Atrial fibrillation with rapid ventricular response on presentation. Currently rate controlled. 5. Congestive heart failure with ejection fraction of 35-40%. Patient is currently euvolemic and stable. 6. Acute kidney injury, improved. 7. Insomnia, improved. Patient refers to be doing a lot better on the melatonin and she has been resting very comfortably now. PLAN: In general, I think Ms. Huizar is relatively stable. We are still waiting placement on Wednesday for her. cc: Blaine Sam MD
[2017-08-01] MEDS: HYDREA PO SCH (08:24)
[2017-08-01] MEDS: AYR NASAL SPRAY NAS SCH (08:25)
[2017-08-01] MEDS: COREG PO SCH ×2 (08:25→21:02)
[2017-08-01] MEDS: LASIX PO SCH (08:25)
[2017-08-01] MEDS: ULTRAM PO PRN (08:25)
[2017-08-01] MEDS: COZAAR PO SCH (08:25)
[2017-08-01] MEDS: CORDARONE PO SCH (08:25)
--- NOTE | 2017-08-01 16:33 | PROGRESS NOTE ---
DATE: 08/01/2017 SUBJECTIVE: This morning Ms. Huizar refers to be doing a little better but she complained of some jerky movement of the leg throughout the night with some cramps. She says she normally takes Neurontin for severe neuropathy and she will not mind if we can restart her on her medications. OBJECTIVE: Vital signs: Blood pressure is 123/83, pulse of 78, respirations 18 , temperature 97.6 degrees. General: Ms. Huizar is an 86-year-old female. She is in bed, not in any distress. HEENT: Mucosa is pink and moist. Anicteric. Acyanotic. Neck: Supple. Chest: Clear. Cardiovascular: Regular rate and rhythm. No murmurs, no rubs. No gallops. Abdomen: Soft, nontender. Bowel sounds are present. There is no hepatosplenomegaly. 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 There is no focal neurological deficit. LABORATORY DATA: None for today. ASSESSMENT: 1. Hypotension on presentation due to sepsis and low cardiac output from atrial fibrillation, rapid ventricular response, this is improved. 2. Escherichia coli bacteremia and urinary tract infection. Patient is currently on ceftriaxone and will continue this for 6 weeks because of titanium plate in her hip. 3. Generalized weakness. Will continue physical therapy. 4. Atrial fibrillation with rapid ventricular response on presentation currently rate controlled. 5. History of congestive heart failure with ejection fraction of 35-40%. The patient is currently stable. 6. Acute kidney injury resolved. 7. Insomnia. Will continue with the melatonin. 8. History of history of peripheral neuropathy. Patient was on Neurontin according to her, we are going to restart her back on her medication. Pending rehab tomorrow. cc: MD FLORI Omalley
[2017-08-01] MEDS: ROCEPHIN 2 GM in NS 50 ML IV SCH (17:17)
[2017-08-01] MEDS ORDERED: NEURONTIN PO SCH (21:00)
[2017-08-01] MEDS: MELATONIN PO SCH (21:02)
[2017-08-02 05:48] LABS: BASO% 0.4 % (0.0-0.8); EOS# 0.08 X1000 (0.0-0.7); HEMATOCRIT 30.5 % (37.0-47.0); HEMOGLOBIN 9.8 g/dL (12.0-16.0); IMM GRAN# 0.09 X1000 (0.0-0.04); IMM GRAN% 1.1 % (0.0-0.5); LYMPH# 1.37 X1000 (1.2-3.4); LYMPH% 16.8 % (20.5-51.1); MANUAL DIFF NEEDED? YES; MCHC 32.1 g/dL (33-37); MCV 118.2 FL (81-99); MONO# 0.58 X1000 (0.11-0.59); MONO% 7.1 % (1.7-9.3); MPV 10.6 FL (7.4-10.4); NEUT% 73.6 % (42.2-75.2); PLT 248 X1000 (130-400); RBC 2.58 XMIL (4.2-5.4)
[2017-08-02 06:14] LABS: CALCIUM 8.2 mg/dL (8.8-10.2); POTASSIUM 4.1 mmol/L (3.5-5.1)
[2017-08-02 07:09] LABS: LYMPHS 16 % (21-51); MONO 10 % (1-9)
[2017-08-02] MEDS: CORDARONE PO SCH (09:23)
[2017-08-02] MEDS: COREG PO SCH (09:23)
[2017-08-02] MEDS: HYDREA PO SCH (09:23)
[2017-08-02] MEDS: LASIX PO SCH (09:23)
[2017-08-02] MEDS: COZAAR PO SCH (09:24)
[2017-08-02] MEDS: AYR NASAL SPRAY NAS SCH (09:27)
--- NOTE | 2017-08-02 12:12 | DISCHARGE SUMMARY ---
ADMISSION DATE: 07/24/2017 DISCHARGE DATE: 08/02/2017 CONSULTATIONS: Braden Lopez MD with Cardiology. PERTINENT PROCEDURES: 1. Head CT showed chronic ischemic microvascular changes. No evidence of acute disease. Right ethmoid sinusitis. 2. EKG showed atrial fibrillation with RVR. Left axis deviation. Follow-up EKG showed atrial fibrillation. 3. Echocardiogram with limited views showed an EF of 35% to 40% with global hypokinesis. 4. Chest CT showed slightly worse in trace pleural effusions, cardiomegaly, mild pulmonary fibrosis, nonspecific dependent atelectasis of left lung. No evidence of mass. No significant pulmonary edema. 5. Renal ultrasound : medical renal disease cannot be excluded. Bilateral renal cysts. 6. Chest x-ray on 07/30/2017 showed interval placement of a right PICC line. Apparent marginal worsening of pulmonary vascular congestion and small left pleural effusion. DISCHARGE DIAGNOSES: 1. Hypotension on presentation due to sepsis from Escherichia coli bacteremia and Escherichia coli urinary tract infection, low cardiac output from atrial fibrillation with rapid ventricular response, improved. 2. Escherichia coli bacteremia. The patient continued on ceftriaxone for 6 weeks because of titanium plate in her hip. 3. Escherichia coli urinary tract infection. The patient will continue on IV antibiotics with cefotaxime for 6 weeks. 4. Atrial fibrillation with rapid ventricular response, currently rate controlled. The patient will continue on p.o. medications and Coumadin. 5. Congestive heart failure history with an ejection fraction of 35% to 40%, currently stable. 6. Acute kidney injury, resolved. 7. Insomnia. Continue melatonin. 8. Peripheral neuropathy. Continue Neurontin. 9. Coumadin toxicity on admission with no signs of active bleeding. Her Coumadin was withheld. She did not receive any vitamin K or FFP. 10. Metabolic encephalopathy secondary to infectious process, improved. HOSPITAL COURSE: Ms. Huizar is an 86-year-old female who is a resident of [facility]. She carries a past medical history of congestive heart failure, chronic atrial fibrillation, hypertension, hyperlipidemia. Last admitted in December 2016 for congestive heart failure exacerbation related to not taking her Lasix as prescribed. She was brought to the ED by her niece who stated she noticed that she was a little more weak. Her balance was not as well. Her strength was poor. She fell while walking with her walker, and that she had not eaten or drank much fluid. They had the nurse at the assisted living check her out. They found anything particularly unusual so they brought her to the ED. In the ED, she was running blood pressure systolically in the 60s to 80s. EKG showed to be in atrial fibrillation with RVR. She had a white count 8. BUN 42, creatinine 1.9. Blood sugar was 82. Troponin 0.23. ProBNP was 26,838. Pro time was 43, INR was 3.78. Urinalysis showed 4+ bacteria with moderate amount of leukocytes. Chest x-ray showed cardiomegaly but otherwise no pulmonary infiltrates. CT of the head showed chronic ischemic microvascular changes but no acute disease. She had no active signs of bleeding. She was admitted, started on IV antibiotics for her UTI. The blood pressure medicine was held. She was initiated on some normal saline carefully given her heart failure. She was initiated on amiodarone for rate control. Cardiology evaluated the patient. They discontinued her IV amiodarone and changed her to p.o. Stopped her IV fluids, initiated her back on her home p.o. Lasix, and decreased her home Coreg, made adjustments to her losartan and held off on her hydralazine. Concerning her anticoagulation, they wanted to restart her Coumadin when her PT and INR was down to 2.5. The patient was also noted to have a bacteremia. Dr. Duke was brought on board. She did have titanium pins in her legs due to fractures. It was an E coli bacteremia and a UTI. The plan was to treat her for 6 weeks with ceftriaxone. Physical therapy was consulted for patient's generalized weakness. Second set of blood cultures were completely negative. She had her PICC line placed for long-term antibiotics. Her atrial fibrillation was rate controlled. Her hypertension resolved. Her acute kidney injury improved. She is appropriate for discharge today to [facility]. VITAL SIGNS: Temperature is 98.1 degrees, heart rate 74, respirations 18, blood pressure is 118/58, O2 is 97% on room air. DISCHARGE DIET: Regular. DISCHARGE MEDICATIONS: As per Dr. Sam. Please see JAN. FOLLOWUP: Ms. Huizar is being discharged to [facility]. She will continue with 6 weeks of IV antibiotics with ceftriaxone. She will follow up with Dr. Apolinar Duke in 3 weeks as well as her primary care physician, Dr. Loja, and her manipulative therapy specialist, Dr. Lopez. She can return to the ED for any worsening of symptoms. Dictated by DANIEL Han for Blaine Sam MD cc: MD Carlos Omalley MD Time spent for discharge 36 minutes [facility]
[2017-08-02 12:25] VITALS: BP 117/63
--- NOTE | 2017-08-02 16:41 | PROGRESS NOTE ---
DATE: 08/02/2017 PRESENT ILLNESS: The patient has an E. coli urinary tract infection with associated bacteremia. The patient has a titanium meño in her femur. MEDICATIONS: This is day 5 of Rocephin starting from the first day the patient' s blood cultures were negative. She is getting Rocephin at a dose of 2 g IV every 24 hours. PHYSICAL EXAMINATION: Vital Signs: Temperature is 98.5 degrees, pulse 78, respirations 18, blood pressure 117/63. General: This is a less ill-appearing female than she had been. Today she is in good spirits. She is alert. Lungs: Clear to auscultation. Cardiovascular : Irregular heart rate. Abdomen: Abdomen and flanks soft and nontender. Extremities: There is no swelling in either hip. LAB AND X-RAY: Patient's CBC today showed a white count of 8170, hemoglobin 9.8 , platelet count 248,000, creatinine 0.9, GFR is 60. ASSESSMENT AND PLAN: Patient has E. coli bacteremia from an E. coli urinary tract infection. I plan to treat her for 6 weeks with IV Rocephin in case the titanium meño in her leg became infected hematogenously. She is on day 5 of Rocephin since the blood cultures were negative. She is going to a rehabilitation facility for 3 weeks and then I will see the patient back in my office in 3 weeks at which time I will examine her and then we will continue with 3 more weeks before we pull the PICC out and stop Rocephin. Then I will put the patient on a low dose of an antibiotic to prevent any flare-up if there should be any organisms left. Most likely this would be Septra DS as a daily dose. She previously had urinary tract infections in the past. The patient is able to void well. She had a 50 mL postvoid residual urine as per bladder scan. We did not find any blockage in her kidneys or any renal calculi. [facility] will be picking the patient up when she leaves the rehabilitation facility in 3 weeks and they will be taking care of supplying her antibiotic. I will see the patient in the office in 3 weeks and then again at 6 weeks as mentioned earlier. COMORBIDITIES: She is elderly. She also has a titanium plate in her femur. cc: Apolinar Duke MD [facility] SYSTEMGalina
== END 2017-08-02 16:00 ==
LOC: SUPCPDRO → ED 13:45 → SUATTDRO 17:45 → EDIPHOLD 17:45 → 3S 20:44 → 4N 08-01 11:11
PROVIDERS: ATTEND Internal Medicine

== ENCOUNTER 2018-10-25 10:50 | Inpatient (IN) ==
[2018-10-25] MEDS ORDERED: AFRIN NASAL SPRAY NAS ONE ×2 (13:04→16:32)
[2018-10-25] MEDS ORDERED: NEO-SYNEPHRINE 0.5% NASAL SPRAY NAS ONE (13:08)
[2018-10-25 13:58] LABS: BASO# 0.01 X1000 (0.0-0.2); BASO% 0.8 % (0.0-0.8); HEMATOCRIT 18.8 % (37.0-47.0); HEMOGLOBIN 6.6 g/dL (12.0-16.0); LYMPH# 0.61 X1000 (1.2-3.4); LYMPH% 47.3 % (20.5-51.1); MCHC 35.1 g/dL (33-37); MONO# 0.03 X1000 (0.11-0.59); MONO% 2.3 % (1.7-9.3); MPV 10.2 FL (7.4-10.4); NEUT# 0.64 X1000 (1.4-6.5); NEUT% 49.6 % (42.2-75.2); RBC 1.28 XMIL (4.2-5.4); RDW 12.4 % (11.5-14.5); WBC 1.29 X1000 (4.8-10.8)
[2018-10-25 14:04] LABS: PTT 62.4 Seconds (22.3-41.8)
[2018-10-25 14:08] LABS: INR 4.69; PROTIME 47.2 Seconds (11.0-16.0)
[2018-10-25 14:21] LABS: MCV > 99.0 FL (81-99)
[2018-10-25 14:22] LABS: MCH > 31.0 PG (27-31)
[2018-10-25 14:27] LABS: LYMPHS 48 % (21-51); SEGS 52 % (42-75)
[2018-10-25 14:30] LABS: PLT 29 X1000 (130-400)
[2018-10-25 15:10] LABS: ALB/GLOB RATIO 1.9; CALCIUM 8.6 mg/dL (8.8-10.2); CREATININE 1.2 mg/dL (0.5-0.9); POTASSIUM 4.6 mmol/L (3.5-5.1); TOTAL BILIRUBIN 0.62 mg/dL (0.20-1.00); TOTAL PROTEIN 6.1 g/dL (6.3-8.3)
[2018-10-25] MEDS ORDERED: VITAMIN K 5 MG in NS 50 ML IV ONE (15:46)
--- NOTE | 2018-10-25 15:51 | PROVIDER DOCUMENTATION ---
This chart was entered by Nuria Webber Scribe, acting as scribe for Elieser Hopkins MD. HPI-EENT General - General Chief Complaint: Nose Bleed Stated Complaint: NOSE BLEED Time Seen by Provider: 10/25/18 12:59 Source: patient, family (nediandra) Allergies/Adverse Reactions: Patient Allergies Allergy/AdvReac Type Severity Reaction Status Date / Time Penicillins Allergy Intermediate RASH Verified 09/29/17 13:54 Home Medications: Home Medication List Medication Instructions Recorded Confirmed Last Taken Type SIMVAstatin [Zocor] 20 mg PO QHS 10/19/13 03/25/18 03/24/18 History Gabapentin 300 mg PO QHS 12/21/16 03/25/18 03/24/18 History Oxybutynin [Ditropan] 5 mg PO BID 12/21/16 03/25/18 03/24/18 History Warfarin [Coumadin] 3 mg PO QHS 12/21/16 03/25/18 03/24/18 History Hydralazine [Apresoline] 25 mg PO BID 07/24/17 03/25/18 03/24/18 History Furosemide [Lasix] 20 mg PO DAILY tablet 08/02/17 03/25/18 03/24/18 Rx Melatonin 5 mg PO QHS 09/29/17 03/25/18 03/24/18 History Sulfamethoxazole/Trimethoprim 1 each PO DAILY 09/29/17 03/25/18 03/24/18 History [Bactrim Ds Tablet] Carvedilol [Coreg] 25 mg PO BID 03/25/18 03/25/18 03/24/18 History Tramadol [Ultram] 50 mg PO BID PRN 03/25/18 03/25/18 03/24/18 History - History of Present Illness-EENT General Nature of Presenting Problem: 88 yowf presents to the ed with c/o nosebleed intermittent for 2 days. pt sts today has became worse. pt is currently on blood thinners EENT Location: reports: nose Quality of Pain: reports: none Severity: reports: moderate (bleeding) Onset/Duration: reports: 2 days ago Timing: reports: intermittent Prearrival Treatment: Initiated squeezing nostrils Associated Symptoms: reports: other (nosebleed) Locality of Occurance: Home Similar Symptoms Previously?: Yes Recently seen or treated by another doctor?: No - Nose Nose Problem Symptoms: nosebleed # of Epistaxis Episodes: 3 (for 2 days) Review of Systems - Adult - REVIEW OF SYSTEMS - ADULT Constitutional: denies: chills, fever Eyes: reports: no symptoms reported Ears, Nose, Mouth & Throat: reports: see HPI, epistaxis Cardiovascular: denies: chest pain, edema Respiratory: denies: cough, shortness of breath, wheezing Gastrointestinal: reports: no symptoms reported Genitourinary: reports: no symptoms reported Musculoskeletal: denies: back pain, neck pain Integumentary: reports: no symptoms reported Neurological: denies: dizziness/vertigo, headache/migraines Psychiatric: reports: no symptoms reported Endocrine: reports: no symptoms reported Hematologic/Lymphatic: reports: see HPI, easy bruising, low blood count, prolonged bleeding Allergic/Immunologic: reports: no symptoms reported All Other Systems: Reviewed and Negative Past History - Adult - PAST MEDICAL HISTORY-ADULT Review of Records: reports: Old Records Reviewed, Nursing Assessment Review, Medications Reviewed, Social history reviewed & non-contributory. Major Childhood Illnesses: reports: denies history Cardiovascular: reports: A-Fib, HTN, hyperlipidemia Respiratory: reports: denies history Gastrointestinal: reports: denies history Obstetrical/Gynecological: reports: denies history Genitourinary: reports: denies history Musculoskeletal: reports: arthritis, spinal fracture Neurological: reports: denies history Endocrine/Immune: reports: denies history Other Conditions: reports: denies history - PRIOR SURGERIES/PROCEDURES Surgical/Procedure History: reports: cholecystectomy, orthopedic (extremity) ( left wrist), other (Bladder Tack) - PRIOR HOSPITALIZATIONS Prior Hospitalizations: reports: none - IMMUNIZATION STATUS Childhood Immunizations: See Nurse Assessment Flu Vaccine: See Nurse Assessment - FAMILY HISTORY Family History: reviewed, not pertinent - SOCIAL HISTORY Smoking: denies Substance Use: denies Alcohol Use Frequency: never Living Situation: family Physical Exam- EENT - Physical Exam EENT Initial Vital Signs Reviewed: Yes General Appearance: appears well, alert, no apparent distress, obese Eye Exam: bilateral eye: normal inspection, PERRL, EOMI Ear Exam: bilateral ear: auricle normal, canal normal, TM normal Nasal Exam: dried blood (seen in rt torres with clot seen on exam) Throat Exam: normal mouth inspection Neck: non-tender, full range of motion, supple, normal inspection Respiratory: chest non-tender, lungs clear, normal breath sounds Cardiovascular: normal peripheral pulses, regular rate, rhythm Abdominal Exam: normal bowel sounds, non tender, soft Lymphatic: no adenopathy Back Exam: normal inspection, no CVA tenderness, no vertebral tenderness Extremity: normal range of motion, non-tender, normal gait, normal inspection, no pedal edema, no calf tenderness, normal capillary refill Integumentary: normal turgor, warm/dry, pallor Neurologic: grossly normal, no motor/sensory deficits Psych/Mental Status: normal mood/affect, normal thought content, normal thought process, oriented x 3 Progress - PLAN OF CARE/RESULTS Progress/Plan/Lab Results: Vital Signs - 8 hr 10/25/18 11:16 Temperature 98.9 F Pulse Rate 62 Respiratory Rate 16 Blood Pressure 104/48 O2 Sat by Pulse Oximetry 96 Laboratory Results - last 24 hr 10/25/18 10/25/18 10/25/18 11:38 13:38 13:38 WBC 1.29 L RBC 1.28 L Hgb 6.6 L Hct 18.8 L MCV > 99.0 H MCH > 31.0 H MCHC 35.1 RDW Std Deviation 12.4 Plt Count 29 L* MPV 10.2 Immature Gran % (Auto) 0.0 Neut % (Auto) 49.6 Lymph % (Auto) 47.3 [place] % (Auto) 2.3 Eos % (Auto) 0.0 Baso % (Auto) 0.8 Immature Gran # (Auto) 0.00 Neut # (Auto) 0.64 L Lymph # (Auto) 0.61 L [place] # (Auto) 0.03 L Eos # (Auto) 0.00 Baso # (Auto) 0.01 Segmented Neutrophils 52 Lymphocytes 48 Macrocytosis 3+ PT 47.2 H INR 4.69 PTT (Actin FS) 62.4 H Sodium Potassium Chloride Carbon Dioxide Anion Gap BUN Creatinine Estimated GFR/1.73 m2 BUN/Creatinine Ratio Glucose Calculated Osmolality Calcium Total Bilirubin AST ALT Alkaline Phosphatase Total Protein Albumin Globulin Albumin/Globulin Ratio Crossmatch See Detail 10/25/18 13:58 WBC RBC Hgb Hct MCV MCH MCHC RDW Std Deviation Plt Count MPV Immature Gran % (Auto) Neut % (Auto) Lymph % (Auto) [place] % (Auto) Eos % (Auto) Baso % (Auto) Immature Gran # (Auto) Neut # (Auto) Lymph # (Auto) [place] # (Auto) Eos # (Auto) Baso # (Auto) Segmented Neutrophils Lymphocytes Macrocytosis PT INR PTT (Actin FS) Sodium 137 Potassium 4.6 Chloride 105 Carbon Dioxide 20 L Anion Gap 12 BUN 37 H Creatinine 1.2 H Estimated GFR/1.73 m2 43 BUN/Creatinine Ratio 31 Glucose 110 H Calculated Osmolality 283 Calcium 8.6 L Total Bilirubin 0.62 AST 16 ALT 9 L Alkaline Phosphatase 46 Total Protein 6.1 L Albumin 4.0 Globulin 2.1 Albumin/Globulin Ratio 1.9 Crossmatch Orders Category Date Time Status Nursing- MD Consult Request ROUTINE Care 10/25/18 15:39 Active Nursing- MD Consult Request ROUTINE Care 10/25/18 15:40 Active Transfuse .Give-Transfuse Care 10/25/18 14:29 Active Transfuse .Give-Transfuse Care 10/25/18 15:45 Active MD [Physician/Provider Consults] Routine Cons 10/25/18 15:38 Ordered MD [Physician/Provider Consults] Routine Cons 10/25/18 15:40 Ordered BLOOD CULTURE [BLDCUL] Stat Lab 10/25/18 15:44 Uncollected CBC WITH ELECTRONIC DIFF [HEME] Stat Lab 10/25/18 13:38 Completed CMP [COMPREHENSIVE METABOLIC PANEL] [CHEM] Stat Lab 10/25/18 13:58 Completed FERRITIN Stat Lab 10/25/18 15:41 Ordered FOLATE Stat Lab 10/25/18 15:41 Ordered HGB AND HCT [HEME] Q6H Lab 10/25/18 21:30 Uncollected HGB AND HCT [HEME] Q6H Lab 10/26/18 03:30 Uncollected HGB AND HCT [HEME] Q6H Lab 10/26/18 09:30 Uncollected HGB AND HCT [HEME] Q6H Lab 10/26/18 15:30 Uncollected LACTATE, PLASMA [CHEM] Stat Lab 10/25/18 15:44 Uncollected PHERESIS PLATELETS [BBK] Stat Lab 10/25/18 15:45 Uncollected PRBC [IRRADIATED LRPC (RED CELLS)] [BBK] Stat Lab 10/25/18 11:38 Results PROTIME WITH INR [COAG] Q24H Lab 10/26/18 06:00 Ordered PROTIME WITH INR [COAG] Q24H Lab 10/27/18 06:00 Ordered PROTIME WITH INR [COAG] Q24H Lab 10/28/18 06:00 Ordered PROTIME WITH INR [COAG] Q24H Lab 10/29/18 06:00 Ordered PROTIME WITH INR [COAG] Q24H Lab 10/30/18 06:00 Ordered PROTIME WITH INR [COAG] Stat Lab 10/25/18 13:38 Completed PTT [COAG] Stat Lab 10/25/18 13:38 Completed TYPE & SCREEN [BBK] Stat Lab 10/25/18 11:38 Results UIBC W TOTAL IRON [CHEM] Stat Lab 10/25/18 15:41 Ordered URINALYSIS [URINALYSIS] Stat Lab 10/25/18 15:44 Uncollected VITAMIN B12 Stat Lab 10/25/18 15:41 Ordered Oxymetazoline Nasal [place] [Afrin Nasal [place]] Med 10/25/18 13:04 Discontinued See Dose Instructions MARILIN NOW ONE Phenylephrine 0.5% Nasal [place] [[place]-Synephrine 0.5% Med 10/25/18 13:08 Discontinued Nasal [place]] See Dose Instructions MARILIN NOW ONE Phytonadione [Vitamin K] 5 mg Med 10/25/18 15:46 Active 0.9% Sodium Chloride Inj [Ns] [address] De Paz came to ER to see pt and agrees to admit. Pt was also accepted for consult by ENT Dr Fuentes by Abel. Result Diagrams: 10/25/18 13:38 10/25/18 13:58 - REASSESSMENT Reassessment #1 Time Reassessed: 11:45 ( bedside) Status: improving Reassessment Comment: bleeding is not active at this time Reassessment #2 Time Reassessed: 14:29 ( at bedside) Status: improving Reassessment Comment: pt is resting in the bed - CONSULTS/PCP/HOSPITALIST Notification #1 *Consult/PCP/Hospitalist*: abel from dr shell office Time Discussed: 14:28 Reason/Comments: consult #2 Consult: hospitalist Time Discussed: 14:35 Reason/Comments: low blood Consult Disposition: other (will admit when results are back) #3 Consult: hospitalist spoke with mark Time Discussed: 15:36 Reason/Comments: low blood Consult Disposition: Admit Departure - Departure Date of Disposition Decision: 10/25/18 Time of Disposition Decision: 15:50 DIAGNOSIS: Epistaxis, Anemia, Renal insufficiency Disposition: ADMITTED INPATIENT 09 Certified Medical Emergency: Emergent Condition: Fair Referrals and Follow-Ups: Carlos Loja MD [Primary Care Provider] - - Critical Care Note This patient required my direct & personal management of CC.: Yes Total Time (mins): 38 Critical Care Statement: This patient required my direct personal management to treat or rule out processes, the absence of which, could potentiallly result in sudden, clinically significant life or limb threatening deterioration. Comments: anemia and nose bleed on blood thinners Attestation - Physician/ ALAINA Attestation Patient care was provided by Advanced Practice Provider:: No The physician spent face to face time with patient:: Yes Advanced Practice Provider documentation review:: Supervising physician onsite and consulted in the evaluation and care of this patient. The physician did have a face to face encounter with the patient. This chart was documented by the indicated scribe, (Nuria Webber Scribe) and accurately reflects the services I performed and decisions made by me, Elieser Hopkins MD, as attested by the provider's signature.
[2018-10-25] MEDS ORDERED: AYR NASAL SPRAY NAS ONE (16:30)
[2018-10-25] MEDS ORDERED: BACTROBAN OINTMENT TOP ONE (16:30)
[2018-10-25 16:36] LABS: TOTAL IRON 173 ug/dL (49-151); UNBOUND IRON < 1 ug/dL (112-346)
[2018-10-25 16:43] LABS: FERRITIN 583 ng/mL (13-150)
[2018-10-25] MEDS ORDERED: ZOFRAN IV PRN (16:43)
--- NOTE | 2018-10-25 16:51 | Diag Imaging Result Doc PS360 ---
FLAT/UPRIGHT ABD/1 VIEW CHEST - 10/25/2018 INDICATION: weight loss; pancytopenia TECHNIQUE: COMPARISON: 03/25/2018 FINDINGS: The chest is clear. There is significant calcification of the mitral valve annulus suggesting mitral stenosis. There are surgical clips in the right upper quadrant. There is a right hip stabilization meño. No bowel obstruction or free air. No significant constipation. IMPRESSION: No acute process. Electronically signed by Leonardo Clarke 10/25/2018 4:49 PM
--- NOTE | 2018-10-25 16:58 | ED EKG INTERP ---
This chart was entered by Nuria Webber Scribe, acting as scribe for Elieser Hopkins MD. EKG Interpretation - EKG Time of EKG reading by physician:: 16:42 EKG Read and Signed by:: Elieser Hopkins EKG Interpretation (*Must complete 3 of following elements*): Abnormal Rate: 71 Rhythm: afib [place]: normal QRS: other (nonspecific intrventricular block/T wave abnormality, consider inferolateral ischemia) [place] Interval: normal Comments: cannot rule out anterior infarct, age undetermiend Attestation - Physician/ ALAINA Attestation Patient care was provided by Advanced Practice Provider:: No The physician spent face to face time with patient:: Yes Advanced Practice Provider documentation review:: Supervising physician onsite and consulted in the evaluation and care of this patient. The physician did have a face to face encounter with the patient. This chart was documented by the indicated scribe, (Nuria Webber Scribe) and accurately reflects the services I performed and decisions made by me, Elieser Hopkins MD, as attested by the provider's signature.
[2018-10-25 17:08] LABS: BASO# 0.01 X1000 (0.0-0.2); BASO% 0.7 % (0.0-0.8); HEMATOCRIT 18.1 % (37.0-47.0); HEMOGLOBIN 6.3 g/dL (12.0-16.0); LYMPH# 0.77 X1000 (1.2-3.4); MCHC 34.8 g/dL (33-37); MONO# 0.02 X1000 (0.11-0.59); MONO% 1.5 % (1.7-9.3); NEUT# 0.55 X1000 (1.4-6.5); NEUT% 40.8 % (42.2-75.2); RBC 1.24 XMIL (4.2-5.4); RDW 12.2 % (11.5-14.5); WBC 1.35 X1000 (4.8-10.8)
[2018-10-25 17:10] LABS: PLT 30 X1000 (130-400)
[2018-10-25 17:20] LABS: MCH > 49.0 PG (27-31); MCV > 134.0 FL (81-99)
[2018-10-25 17:45] LABS: IRON SATURATION 100 %; TIBC 173 ug/dL
[2018-10-25 17:51] LABS: LYMPHS 64 % (21-51); SEGS 36 % (42-75)
[2018-10-25] MEDS: NS 1,000 ML IV SCH (18:35)
--- NOTE | 2018-10-25 18:39 | HISTORY AND PHYSICAL ---
PRIMARY CARE PROVIDER: Dr. Loja. PRIMARY CALL CENTER SUPPORT CONSULTANT: Dr. Katlin Cowan. PRIMARY PROCESS DEVELOPMENT ENGINEER: Dr. Darvin Fallon. CHIEF COMPLAINT: Right nare nosebleed. HISTORY OF PRESENT ILLNESS: Ms. 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 Cowan, and apparently she was diagnosed with this around two to three years ago. Also, with history of hypertension, congestive heart failure. CKD stage 2, now presents with a two- day history of right nare epistaxis, bright red blood. She continues to blow her nose. When labs were obtained, it shows that she has pancytopenia with a low white blood cell count, low hemoglobin and hematocrit, low platelet count as well. Her INR is supratherapeutic at 4.69. Vital signs are stable. She has only had complaints of fatigue. She does have bruising under the fingernail beds, which she states has been going on about two years. She has had a 30-pound weight loss in the last two months with a decrease in her appetite. So, we are going to admit her. Give her packed red blood cells, platelets, and vitamin K to decrease her bleeding time. Will consult Dr. Cowan, who is a provider for this patient, who treats her polycythemia vera, now with acute onset of pancytopenia. According to the patient and the niece at the bedside, it has been at least four months since her last phlebotomy. Dr. Andres Fuentes has seen this patient and feels like it is more of a superficial anterior type nosebleed and wishes for her not to blow her nose and he has ordered saline and Afrin spray to keep at the bedside. The right nare nose bleeding has slowed down quite a bit. It is still oozing. Otherwise, no other complaints. We will admit her to the [facility] given the risk for bleeding. PAST MEDICAL HISTORY: 1. Polycythemia vera for two to three years, followed by Dr. Cowan with frequent phlebotomies. 2. Chronic atrial fibrillation, on Coumadin therapy. 3. Congestive heart failure. 4. Arthritis. 5. Hypertension. 6. Hyperlipidemia. 7. CKD stage 2. PAST SURGICAL HISTORY: 1. Frequent phlebotomies for polycythemia vera. 2. Right hip fracture repair with pinning and meño. 3. Cholecystectomy. SOCIAL HISTORY: Denies tobacco, alcohol, or illicit drug use. She has been currently living at assisted living facility in [facility] and her niece is close to her, as her closest family member. FAMILY HISTORY: Positive for coronary artery disease, otherwise no other history. ALLERGIES: Penicillin. HOME MEDICATIONS: Have not been verified but from, looks likes 2016, she was on gabapentin, melatonin, Zocor, Coumadin, Coreg, Apresoline, Ditropan, Ultram, and Lasix. Again, these have not been fully reconciled yet. REVIEW OF SYSTEMS: A 14-point review of systems is complete, and all were negative except for those mentioned in the above HPI. She has had a 30-pound weight loss in two months. She has bruising under the fingernails for two years. She has had fatigue for the last two days. She has had decreased appetite for the last two months and she has complained of right nare nasal bleeding. PHYSICAL EXAMINATION: VITAL SIGNS: Temperature is 97.9, heart rate 73, respiratory rate 18, blood pressure 124/40, O2 saturation is 100% on room air. GENERAL: Ms. Sol Huizar is an 88-year-old female. She is in no acute distress. She is able to answer questions appropriately. HEENT: Atraumatic and normocephalic. Pupils are equal, round and reactive to light. Extraocular movements were intact. Right nare with bright red blood, minimal amount. Mucous membranes are dry. NECK: Trachea midline. CARDIOVASCULAR: Irregularly irregular rate and rhythm. No rubs, gallops, or murmurs. No lower extremity edema. Plus 2 dorsalis pedal pulses. Plus 2 radial pulses. PULMONARY: Clear to auscultation, bilateral breath sounds. No accessory muscle use or work of breathing noted. GASTROINTESTINAL: Soft, nontender and nondistended. Positive bowel sounds x4. EXTREMITIES: Moves all extremities equally with full range of motion. NEUROLOGICAL: Alert and oriented x3. Follows commands. Sensory is intact. SKIN: Warm, dry and intact, but pale. LABORATORY DATA: White blood cells are 1,000, hemoglobin 6.6, hematocrit 18.8, platelet count 29. INR is 4.69. PTT is 62.4. Sodium is 137, potassium 4.6, BUN is 37, creatinine 1.2, glucose 110, calcium 8.6. Iron level is 173. TIBC pending. Saturation pending. Unsaturated is less than 1. Bilirubin 0.62, AST is 16, ALT is 9. Albumin 4. Serum lactate is 1. IMAGING: There has been abdominal and chest x-ray ordered without results yet. EKG has been ordered but not resulted yet. ASSESSMENT AND PLAN: 1. New onset pancytopenia. Dr. Cowan has been consulted. She has a history of polycythemia vera. She is supratherapeutic on her Coumadin. Will do a low dose, 5 mg of intravenous vitamin K. Will also treat her thrombocytopenia with a bag of platelets. Will treat her anemia with two packed red blood cells. Currently, vital signs are stable with this. 2. Epistaxis, right anterior nasal bleeding for at least two days, every time she blows her nose. Dr. Andres Fuentes has seen this patient and recommends not blowing her nose, using saline spray and Afrin spray. If there are any other complications let him know. 3. Polycythemia vera. She was diagnosed with this around two to three years ago and every three or four months she would have phlebotomies. Apparently she has not had to have phlebotomy for at least four months, but then again Dr. Cowan will be consulted. 4. Chronic atrial fibrillation. Awaiting electrocardiogram. She was not on the monitor, down at the bedside in the fitch, in the emergency room. Rhythm did sound irregular. She has been on Coumadin therapy, which currently we are going to hold for now until her bleeding is under control. 5. History of congestive heart failure. No signs of symptoms right now. 6. Hypertension. Once home medications are verified will resume. 7. Hyperlipidemia. 8. Chronic kidney disease, stage 2. Currently at baseline. Creatinine is 1.2 right now. Runs anywhere from 1.1 up to 2.1. 9. Deep venous thrombosis prophylaxis with sequential compression devices. Dictated by DANIEL Ness for Ryan Silva MD Addendum: Patient seen and examined by myself. Agree with DAINEL note. It reflects my assessment and plan. Patient is being admitted for pancytopenia. She came to hospital for persistent epistaxis and labs showed that problem. In the past she has been seen for polycythemia vera. Will of course consult Hematology oncology and follow recommendations. cc: DANIEL Ness MD MTDGalina
[2018-10-25] MEDS: FOLIC ACID PO SCH (20:45)
[2018-10-25] MEDS: TYLENOL PO PRN (20:45)
[2018-10-26] MEDS: ULTRAM PO PRN ×3 (01:53→18:55)
[2018-10-26 05:14] LABS: URINE SOURCE VOIDED
[2018-10-26 05:17] LABS: BILIRUBIN URINE NEGATIVE (NEGATIVE); BLOOD URINE NEGATIVE (NEGATIVE); COLOR YELLOW; GLUCOSE URINE NEGATIVE (NEGATIVE); KETONE URINE NEGATIVE (NEGATIVE); LEUKOCYTES URINE NEGATIVE (NEGATIVE); NITRITE URINE NEGATIVE (NEGATIVE); PH URINE 5.5; PROTEIN URINE NEGATIVE (NEGATIVE); SP GRAVITY URINE 1.007; TURBIDITY URINE CLEAR (CLEAR); UROBILINOGEN URINE NORMAL (NORMAL)
[2018-10-26 05:19] LABS: UR EPITHELIAL CELLS <10 /HPF (<10); URINE BACTERIA NEGATIVE /HPF; URINE RBC <10 /HPF (<10); URINE WBC <10 /HPF (<10)
[2018-10-26 06:09] LABS: PTT 33.6 Seconds (22.3-41.8)
[2018-10-26 06:27] LABS: HEMATOCRIT 26.3 % (37.0-47.0); HEMOGLOBIN 9.3 g/dL (12.0-16.0); INR 1.49; LYMPH# 0.75 X1000 (1.2-3.4); LYMPH% 52.4 % (20.5-51.1); MCH 40.6 PG (27-31); MCHC 35.4 g/dL (33-37); MCV 114.8 FL (81-99); MONO# 0.03 X1000 (0.11-0.59); MONO% 2.1 % (1.7-9.3); MPV 11.3 FL (7.4-10.4); NEUT# 0.65 X1000 (1.4-6.5); NEUT% 45.5 % (42.2-75.2); PLT 63 X1000 (130-400); PROTIME 19.1 Seconds (11.0-16.0); RBC 2.29 XMIL (4.2-5.4); WBC 1.43 X1000 (4.8-10.8)
[2018-10-26 06:30] LABS: ALB/GLOB RATIO 1.8; ALBUMIN 3.9 g/dL (3.5-5.0); CALCIUM 8.1 mg/dL (8.8-10.2); CREATININE 1.2 mg/dL (0.5-0.9); MAGNESIUM 1.9 mg/dL (1.5-2.7); TOTAL BILIRUBIN 1.46 mg/dL (0.20-1.00); TOTAL PROTEIN 6.1 g/dL (6.3-8.3)
[2018-10-26 07:50] LABS: LYMPHS 65 % (21-51); SEGS 35 % (42-75)
[2018-10-26 07:51] LABS: HYPOCHROM 1+
[2018-10-26] MEDS: FOLIC ACID PO SCH (08:33)
[2018-10-26 09:28] LABS: HEMATOCRIT 27.1 % (37.0-47.0); HEMOGLOBIN 9.5 g/dL (12.0-16.0)
--- NOTE | 2018-10-26 10:18 | PROGRESS NOTE ---
DATE: 10/26/2018 SUBJECTIVE: Patient reports feeling fine, feeling less tired. Denies any fever , chills, or blood in the stools or vomiting blood. OBJECTIVE: Vital Signs: Temperature 97.5, heart rate 94, respiratory rate 16, blood pressure 110/67. O2 saturation 99% 2 L nasal cannula. General: This is a very pleasant 88-year-old female lying in bed, in no acute distress. HEENT: Head is normocephalic, atraumatic. Neck: No JVD noted. No carotid bruits. No lymphadenopathy. No thyromegaly. Nose: Right nare with no blood in there. Mucous membranes: Dry. Neck: No JVD noted. No carotid bruit. Cardiovascular: S1, S2 heard. Irregularly irregular. No rubs, gallops, or murmurs. Respiratory: Clear bilaterally to auscultation. No work of breathing or using accessory muscles. Abdomen: Soft, nontender to palpation. Bowel sounds present. No organomegaly. Extremities: No clubbing, cyanosis, or edema. Peripheral pulses present in both legs. Neurological: Patient alert and oriented x3. Moves 4 extremities. LABORATORY DATA: White cell count is 1.43, hemoglobin 9.3, hematocrit 26.3, platelets 63,000. BMP remarkable for creatinine 1.2. Urine was 173, TIBC 173, ferritin 583, folate 8.2. ASSESSMENT AND PLAN: 1. New onset pancytopenia after transfusion of 2 units PRBCs and 1 unit of platelets, both numbers are better today. At this point, we are awaiting recommendations from Dr. Cowan from Hematology/Oncology. 2. Epistaxis most likely related to the low platelet count. Now, that the platelet count is above 60, she is not having any more bleeding anymore. 3. History of polycythemia vera. Aware. 4. Chronic atrial fibrillation. Patient is on Coumadin which was supratherapeutic yesterday, so she received 1 unit of 1 dose of vitamin K IV, and now INR is 1.47. 5. History of congestive heart failure. Patient is not in any exacerbation. We will continue with home medications for this chronic medical condition. 6. Hypertension. Blood pressure is under control. We will continue with the same medication. 7. Chronic kidney disease stage 2. Stable. 8. Disposition. Patient will like to have a physical therapy consult, and I think this patient is stable and she can be transferred out of [facility] unit today. cc: Ryan Silva MD MTDD
[2018-10-26 15:45] LABS: HEMATOCRIT 26.4 % (37.0-47.0); HEMOGLOBIN 9.4 g/dL (12.0-16.0)
[2018-10-26 15:47] LABS: RETIC% 0.46 % (0.8-2.1); RETIC-HE 33.2 PG (28.2-36.6)
[2018-10-26] MEDS: NS 1,000 ML IV SCH ×2 (17:36)
[2018-10-27 05:32] LABS: HEMATOCRIT 25.7 % (37.0-47.0); HEMOGLOBIN 9.2 g/dL (12.0-16.0); LYMPH# 0.64 X1000 (1.2-3.4); MCHC 35.8 g/dL (33-37); MCV 117.4 FL (81-99); MONO# 0.01 X1000 (0.11-0.59); MONO% 0.7 % (1.7-9.3); MPV 11.6 FL (7.4-10.4); NEUT# 0.84 X1000 (1.4-6.5); NEUT% 56.3 % (42.2-75.2); PLT 47 X1000 (130-400); RBC 2.19 XMIL (4.2-5.4); WBC 1.49 X1000 (4.8-10.8)
[2018-10-27 05:48] LABS: ALB/GLOB RATIO 2.1; ALBUMIN 3.7 g/dL (3.5-5.0); CALCIUM 8.1 mg/dL (8.8-10.2); POTASSIUM 4.1 mmol/L (3.5-5.1); TOTAL BILIRUBIN 0.98 mg/dL (0.20-1.00); TOTAL PROTEIN 5.5 g/dL (6.3-8.3)
[2018-10-27 06:11] LABS: LYMPHS 45 % (21-51); SEGS 55 % (42-75)
[2018-10-27 07:00] LABS: INR 1.31; PROTIME 17.3 Seconds (11.0-16.0)
--- NOTE | 2018-10-27 07:41 | EKG Report ---
Test Performed on : 10/27/2018 04:51:07 AM Test Reason : Chest Pain Blood Pressure : / mmHG Vent. Rate : 099 BPM Atrial Rate : 119 BPM P-R Int : 000 ms QRS Dur : 134 ms QT Int : 396 ms P-R-T Axes : 000 -52 219 degrees QTc Int : 508 ms Atrial fibrillation. Left axis deviation Nonspecific intraventricular block Possible Anterolateral infarct (cited on or before 29-SEP-2017) T wave abnormality, consider inferior ischemia Abnormal ECG When compared with ECG of 25-MAR-2018 18:00, Questionable change in initial forces of Lateral leads T wave inversion now evident in Inferior leads T wave inversion more evident in Anterolateral leads Confirmed by Prieto MADDOX, Saroj Torres ([id number]) on 10/27/2018 5:56:23 PM
--- NOTE | 2018-10-27 07:41 | HEMO/ONC CONSULTATION ---
DATE: 10/26/2018 REQUESTING PHYSICIAN: Consultation requested by hospitalist service. REASON FOR CONSULTATION: Consultation is for pancytopenia, patient known. HISTORY OF PRESENT ILLNESS: Ms. 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 The patient was previously on Hydrea 1000 mg in the morning and 500 mg at night. We last saw her in the office on 09/05/2018. At that time, her platelet count was 139,000 with a hemoglobin of 10.2. The patient reportedly has had a decreased appetite since her last office visit. She has actually lost around 30 pounds over the last couple of months. On presentation, her counts are rather low with a white count of 1.35, hemoglobin 6.3, and a platelet count of 30,000. The patient also had a supratherapeutic INR. Currently, the patient has no acute complaints. She has been admitted for further evaluation and treatment. PAST MEDICAL HISTORY: 1. Polycythemia vera. She is actually on Hydrea 1 g in the morning and 500 at night. She has not required a phlebotomy in several months. 2. Chronic atrial fibrillation. Patient is anticoagulated with Coumadin therapy. 3. Congestive heart failure. 4. Arthritis. 5. Hypertension. 6. Hyperlipidemia. 7. Chronic kidney disease. PAST SURGICAL HISTORY: 1. Right hip fracture with repair. 2. Cholecystectomy. SOCIAL HISTORY: The patient denies any tobacco, illicit drug, or alcohol use currently. She lives in an assisted living facility, and her niece checks on her from time to time. FAMILY HISTORY: Positive for coronary artery disease. REVIEW OF SYSTEMS: Twelve-point review of systems has been completed and negative except for what is expressed in the HPI. PHYSICAL EXAMINATION: Vital Signs: Temperature 97.6, heart rate 95, respirations 20, blood pressure 123/55, O2 saturation 95% on room air. General: This is a female lying in the hospital bed. She is in no acute distress. HEENT: Head normocephalic, atraumatic. Eyes: Pupils equal, round, reactive. Ears, nose, throat, neck, mouth: Oral mucosa appears to be normal. Gross auditory acuity is intact. Cardiovascular: Irregularly irregular noted. Rate controlled at this time. Respiratory: Chest clear with normal respiratory effort. Abdomen: Soft, nontender, with normoactive bowel sounds. Musculoskeletal: No bony abnormalities noted. Extremities: No edema. Neurologic: Patient is alert and oriented with no focal motor deficits. LABORATORY DATA: For 10/26/2018, show a white blood cell count of 11.43, hemoglobin 9.3, hematocrit of 26.3, platelet count of 63,000. Sodium 141, potassium 4.0, chloride 107, CO2 of 21. BUN 33, creatinine 1.2, glucose 101. ASSESSMENT AND PLAN: 1. Polycythemia vera. Patient now in with pancytopenia. This is rather suspicious for likely Hydrea toxicity with acute illness. It is possible the patient now has myelofibrosis, however, at this time, we will just plan to hold the Hydrea and monitor her counts. Her counts are improving, so she did receive 2 units of packed red blood cells and platelets previously. If her counts do not improve off of the Hydrea, we recommend thinking about proceeding with a bone marrow biopsy. However, we would discuss that in much more detail if we get to that point. We will also go ahead and check retic count, as well as haptoglobin, LDH to check for any hemolysis. 2. Epistaxis. The patient has been evaluated by ENT. They recommend that she no longer blow her nose and to use Afrin as needed. They also recommend nasal saline spray. No further episodes at this time. 3. Chronic atrial fibrillation. She is currently in atrial fibrillation. Management per her primary team. 4. Chronic anticoagulation. Patient's INR is now subtherapeutic. Management per primary team. She has received vitamin K. 5. Weight loss, aware. I want to thank you for consulting us on Ms. Huizar while she is in [facility]. We will continue to follow along and adjust our treatment plan per her hospital course. Dictated by DOMINICK Dubois for Katlin Cowan MD cc: Katlin Cowan MD I have seen and examined the patient and the above note reflects my history, physical and assessment and plan. Katlin RUBY
--- NOTE | 2018-10-27 11:40 | Diag Imaging Result Doc PS360 ---
EXAM: RIBS UNILAT W/PA CHEST LEFT - 10/27/2018 HISTORY: left pleuritic chest pain TECHNIQUE: Left RIBS and AP chest five views COMPARISON: 10/25/2018 portable chest FINDINGS: There is smooth deformity of the anterior left seventh rib suggestive of old fracture deformity. There is no acute-appearing left rib fracture identified. There is no destructive or sclerotic left rib lesion identified. There is stable mild cardiomegaly. There is calcified mitral valve annulus noted. There are apparent COPD changes. There is mild atelectasis at the lateral left base. There has been development of a small right pleural effusion. There is no acute consolidation or pneumothorax identified. IMPRESSION: Apparent old fracture deformity of anterior left seventh rib. No other visible left rib lesion. Stable mild cardiomegaly. COPD changes. Mild atelectasis at left base. Small right pleural effusion. Electronically signed by Chente Abdul 10/27/2018 11:37 AM
--- NOTE | 2018-10-27 12:12 | PROGRESS NOTE ---
DATE: 10/27/2018 SUBJECTIVE: Patient reports feeling fine. No more episodes of epistaxis. No bloody stools or vomiting blood. Denies any fever or chills. She reports sort of pleuritic chest pain in the left thoracic wall. OBJECTIVE: Vital signs: Temperature 98.1 degrees, heart rate 97, respiratory rate 18, blood pressure 110/84, O2 saturation 100% on 2 L nasal cannula. General Examination: This is an 88- year-old female lying in bed, in no acute distress. Cardiovascular: S1, S2 heard. Irregularly irregular. No murmurs, gallops, or rubs. Respiratory: Clear bilaterally to auscultation. No work of breathing or using accessory muscles. Mild pain to palpation in the left rib cage. Abdomen: Soft. Nontender to palpation. Bowel sounds present. No organomegaly. Extremities: No clubbing, cyanosis, or edema. Peripheral pulses present in both legs. Neurological: Patient is alert and oriented x3. Moves 4 extremities. LABORATORY DATA: White cell count is 1.49, hemoglobin 9.2, hematocrit 25.7, platelets 47,000. INR 1.31. Creatinine 1.02. ASSESSMENT AND PLAN: 1. New onset pancytopenia. The patient has received 2 units of blood and hemoglobin today is much better. It is 9.2 today which is basically the same in comparing with yesterday. We will continue with the same management. 2. Epistaxis, most likely related to low platelet count. No more episodes of that. The platelet count has dropped to 47,000. 3. History of polycythemia vera. Patient has been on medication, Hydrea, and hematology/oncology thinks that this is another reaction of this medication. At this time, they are planning to stop that medication and see if her numbers gets better, otherwise they may need to do a bone marrow biopsy. In any case, we will continue to monitor this patient closely. 4. Chronic atrial fibrillation. Patient is on Coumadin but because that was supratherapeutic, patient received 1 dose of vitamin K and today the INR is 1.3. 5. History of congestive heart failure. Patient is on home medications. 6. Hypertension. Blood pressure is under control. We will continue with the same management. 7. Chronic kidney disease stage 2, stable. We will continue to monitor BMP. 8. Disposition. At this point, we are going to check CBC tomorrow and see. If those numbers are stable and similar to today, the patient can be discharged. Otherwise, she will need to have a bone marrow biopsy while she is here. We will follow recommendations from hematology. cc: Ryan Silva MD [facility]
[2018-10-27] MEDS: ULTRAM PO PRN (16:10)
[2018-10-27 17:50] LABS: HEMATOCRIT 25.6 % (37.0-47.0); HEMOGLOBIN 8.9 g/dL (12.0-16.0); LYMPH# 0.45 X1000 (1.2-3.4); LYMPH% 28.8 % (20.5-51.1); MCH 41.2 PG (27-31); MCHC 34.8 g/dL (33-37); MCV 118.5 FL (81-99); MONO# 0.02 X1000 (0.11-0.59); MONO% 1.3 % (1.7-9.3); MPV 10.8 FL (7.4-10.4); NEUT# 1.09 X1000 (1.4-6.5); NEUT% 69.9 % (42.2-75.2); PLT 40 X1000 (130-400); RBC 2.16 XMIL (4.2-5.4); WBC 1.56 X1000 (4.8-10.8)
[2018-10-27 18:03] LABS: ANISOCYTOSIS 4+; LYMPHS 28 % (21-51); NRBC 1 % (0-0); SEGS 72 % (42-75)
[2018-10-27 18:04] LABS: HYPOCHROM 3+
[2018-10-27] MEDS: FOLIC ACID PO SCH ×2 (20:09→20:43)
[2018-10-27] MEDS: NS 1,000 ML IV SCH (20:54)
[2018-10-28 06:58] LABS: INR 1.3; PROTIME 17.2 Seconds (11.0-16.0)
[2018-10-28 09:21] LABS: HEMOGLOBIN 8.9 g/dL (12.0-16.0); MCH 41.2 PG (27-31); MCHC 34.2 g/dL (33-37); MCV 120.4 FL (81-99); MPV 10.7 FL (7.4-10.4); PLT 156 X1000 (130-400); RBC 2.16 XMIL (4.2-5.4); WBC 2.07 X1000 (4.8-10.8)
[2018-10-28 09:32] LABS: CALCIUM 8.3 mg/dL (8.8-10.2); CREATININE 1.1 mg/dL (0.5-0.9); POTASSIUM 4.2 mmol/L (3.5-5.1)
[2018-10-28] MEDS: FOLIC ACID PO SCH ×2 (10:30→20:40)
--- NOTE | 2018-10-28 10:30 | Diag Imaging Result Doc PS360 ---
EXAM: CT THORAX W/O CONTRAST HISTORY: hemoptysis TECHNIQUE: CT chest without contrast COMPARISON: 07/28/2017 FINDINGS: There are small bilateral pleural effusions which have slightly increased in size compared to the prior study. The one on the right measures 2.1 cm posteriorly and inferiorly in the midline where is the one on the left measures 1.1 cm. The heart remains enlarged. Prominent atherosclerosis. No aortic aneurysm. Mildly enlarged mediastinal nodes. The largest node is precarinal location measuring 2.0 cm in length. Previously it measured 1.4 cm in length. There are tiny bilateral nodular infiltrates in the upper lungs which have developed since the prior study. There is basilar atelectasis. There is central vascular distention. IMPRESSION: 1.Mild increase in the size of the small bilateral pleural effusions 2.Stable cardiomegaly with central vascular prominence as well as atherosclerosis 3.Mild increase in the mediastinal adenopathy 4.Development of tiny patchy infiltrates This exam was performed using automated exposure control, adjustment of mA or kV according to patient size, and/or use of iterative reconstruction technique. Electronically signed by Alec Fierro 10/28/2018 10:27 AM
[2018-10-28] MEDS: ULTRAM PO PRN (10:38)
--- NOTE | 2018-10-28 10:55 | PROGRESS NOTE ---
DATE: 10/28/2018 SUBJECTIVE: Patient and also nurse reported that she was having hemoptysis, bloody sputum since last afternoon until this morning. But she does not report any shortness of breath, any chest pain. No blood in stool or vomiting blood. Denies any fever or chills. OBJECTIVE: Vital Signs: Temperature 97.8 degrees, heart rate 110, respiratory rate 14, blood pressure 125/72, O2 saturation 100% on 3 L nasal cannula. General: This is an 88-year-old female lying in bed, in no acute distress. HEENT: Head is normocephalic, atraumatic. Neck: No JVD noted. No carotid bruits. No lymphadenopathy. No thyromegaly. Cardiovascular: S1, S2 heard. Irregularly irregular. No murmurs, gallops, or rubs. Regular rate and rhythm. Respiratory: Clear bilaterally to auscultation. No work of breathing. Not using accessory muscles. Very mild pain to palpation in the left ribcage. Abdomen: Soft, nontender to palpation. Bowel sounds present. No organomegaly. Extremities: No clubbing, cyanosis, or edema. Peripheral pulses present in both legs. Neurological: The patient alert and oriented x3. Moves 4 extremities. LABORATORY DATA: It is still pending at time of my dictation. Even though the exam was ordered at 6 a.m. ASSESSMENT AND PLAN: 1. New onset pancytopenia. Patient has received 2 units of blood and because of this episode of epistaxis, she has received also 2 units of platelets. As we mentioned before, the results of the labs are still pending. Because of these episodes of hemoptysis and considering her advanced age, I prefer to go ahead and do a CT of the thorax, and we will go from there. 2. Epistaxis resolved, most likely related to low platelet count. We will continue to monitor. 3. History of polycythemia vera. Actually, Hematology/Oncology has been consulted. They think that this polycythemia is secondary to Hydrea. So at this point, the initial plan was to stop this medication and see how this patient does. But considering that the platelet count continues to drop, I think the next step will be most likely bone marrow aspiration. We will leave that decision to Hematology/Oncology. Help appreciated. 4. Chronic atrial fibrillation. Heart rhythm is less than 100 is under control. Coumadin of course has been stopped. INR is 1.3. 5. History of congestive heart failure. Patient is on home medications. No exacerbation at this point. 6. Hypertension. Blood pressure is under control. We will continue with the same management. 7. Chronic kidney disease stage 2. The creatinine is almost back to normal. We will continue to monitor. 8. Disposition. At this point, we are awaiting labs and also because of this new onset hemoptysis, that could be most likely related to low platelets. We are going to do a CT of the chest. We are also awaiting Hematology/Oncology recommendations. 9. We will continue to monitor this patient closely. cc: Ryan Silva MD
[2018-10-28] MEDS ORDERED: LASIX IV ONE (12:20)
[2018-10-28] MEDS: LEVAQUIN 500 MG/D5W 500 MG/100 ML IVPB IV SCH (14:17)
--- NOTE | 2018-10-28 17:14 | HEMO/ONC PROGRESS NOTE ---
DATE: 10/28/2018 SUBJECTIVE: Ms. Huizar is sitting up in her hospital chair. She is complaining of some dizziness but otherwise feels well. OBJECTIVE: Vital Signs: Temperature 97.4 degrees, heart rate 96, respirations 14, blood pressure 106/61, O2 saturation 100% on 3 L nasal cannula. LABS: White blood cells 2.07, hemoglobin 8.9, hematocrit 26.0, platelet count 156,000, sodium 145, potassium 4.2, chloride 111, CO2 19, BUN 40, creatinine 1.1, glucose 169. PHYSICAL EXAM: CV: S1, S2 heard. No murmurs, gallops, rubs appreciated. Irregular irregular rhythm noted. Respiratory: Chest is essentially clear to auscultation bilaterally. Gastrointestinal: Abdomen soft, nontender, nondistended. Normoactive bowel sounds. Extremities: Trace edema noted. ASSESSMENT AND PLAN: 1. Pancytopenia, improving. Believed to be secondary to her Hydrea. Will continue to hold at this time. Patient can follow up with us as an outpatient and we can discuss further treatment for her polycythemia vera at that time. 2. Polycythemia vera. Holding Hydrea. Will discuss management once the patient is discharged and follows up in our office. 3. Epistaxis. No more episodes. Platelet count is now normal. 4. Chronic atrial fibrillation. Patient has rate control currently. Management per primary team. 5. Disposition. From our standpoint patient can be discharged and follow up with us in the office in the next 1 to 2 weeks. We will arrange that appointment once the patient is actually discharged. We are signing off for now and we will be available as needed. Dictated by DOMINICK Dubois for Katlin Cowan MD cc: Katlin Cowan MD I have seen and examined the patient and the above note reflects my history, physical and assessment and plan. Katlin RUBY
[2018-10-29 06:23] LABS: INR 1.5; PROTIME 19.3 Seconds (11.0-16.0)
[2018-10-29 06:25] LABS: HEMOGLOBIN 8.8 g/dL (12.0-16.0); MCH 41.9 PG (27-31); MCHC 33.8 g/dL (33-37); MCV 123.8 FL (81-99); MPV 11.1 FL (7.4-10.4); PLT 111 X1000 (130-400); WBC 3.29 X1000 (4.8-10.8)
[2018-10-29 06:48] LABS: CALCIUM 8.8 mg/dL (8.8-10.2); CREATININE 1.4 mg/dL (0.5-0.9); POTASSIUM 4.6 mmol/L (3.5-5.1)
[2018-10-29] MEDS: ULTRAM PO PRN ×2 (07:52→15:45)
[2018-10-29] MEDS: FOLIC ACID PO SCH ×2 (08:46→20:33)
[2018-10-29] MEDS: LEVAQUIN 500 MG/D5W 500 MG/100 ML IVPB IV SCH (11:34)
[2018-10-29] MEDS: TYLENOL PO PRN (20:33)
[2018-10-30] MEDS: ULTRAM PO PRN (01:17)
[2018-10-30] MEDS ORDERED: LANOXIN IV ONE (02:30)
[2018-10-30] MEDS ORDERED: LOPRESSOR IV ONE (02:30)
[2018-10-30] MEDS: NS 1,000 ML IV SCH ×3 (06:20→18:30)
[2018-10-30 06:31] LABS: INR 2.08
[2018-10-30 06:55] LABS: CALCIUM 8.7 mg/dL (8.8-10.2); CREATININE 2.3 mg/dL (0.5-0.9); POTASSIUM 5.4 mmol/L (3.5-5.1)
[2018-10-30] MEDS: DITROPAN PO SCH (08:03)
[2018-10-30] MEDS: LANOXIN PO SCH (08:03)
[2018-10-30] MEDS: CARDIZEM PO SCH ×3 (08:03→20:59)
[2018-10-30] MEDS: ZOCOR PO SCH (08:03)
[2018-10-30] MEDS: FOLIC ACID PO SCH ×2 (08:03→20:59)
[2018-10-30] MEDS: LASIX PO SCH (08:03)
[2018-10-30] MEDS: APRESOLINE PO SCH ×2 (08:08→20:59)
[2018-10-30 09:38] LABS: HEMATOCRIT 25.7 % (37.0-47.0); HEMOGLOBIN 8.7 g/dL (12.0-16.0); MCH 41.6 PG (27-31); MCHC 33.9 g/dL (33-37); MPV 10.8 FL (7.4-10.4); PLT 48 X1000 (130-400); RBC 2.09 XMIL (4.2-5.4); WBC 2.59 X1000 (4.8-10.8)
--- NOTE | 2018-10-30 10:25 | PROGRESS NOTE ---
DATE: 10/30/2018 SUBJECTIVE: The patient was supposed to be discharged yesterday morning but apparently on that day, she was having a heart rate that was reaching the 130s and 140s. She was complaining of some chest discomfort. She remained in the hospital. She was started on digoxin, which is a home medication. Upon my examination this morning, she reports feeling fine. No chest pain. No chest discomfort. No shortness of breath. OBJECTIVE: Vital Signs: Temperature 97.6 degrees, heart rate 80, respiratory rate 16, blood pressure 113/70, O2 saturation 92% on room air. General Examination: This is an 88-year-old, female lying in bed, in no acute distress. Neck: No JVD noted. No carotid bruits. No lymphadenopathy. Cardiovascular Examination: S1 and S2 heard. Irregularly irregular. No murmurs, gallops, or rubs. Respiratory Examination: Clear bilaterally to auscultation. No work of breathing or using accessory muscles. Abdomen: Soft. Nontender to palpation. Bowel sounds present. No organomegaly. Extremities: No clubbing, cyanosis, or edema. Peripheral pulses present in both legs. Neurological Examination: The patient is alert and oriented x3. Moves 4 extremities. Laboratory Data: White cell count 2.59, hemoglobin 8.7, hematocrit 25.7, platelets 48,000. INR 2.08. BMP shows potassium 5.4, creatinine 2.3. ASSESSMENT AND PLAN: 1. New onset pancytopenia. That condition I think is getting better. From a hematology standpoint, the patient can be discharged. They think that this is probably secondary to the use of Hydrea. We will continue to monitor. 2. History of polycythemia vera. Aware. Hematology/oncology has been following this patient but the patient, from their standpoint, can be discharged. 3. Chronic atrial fibrillation. The patient started having a rapid ventricular response. She has been restarted on digoxin. Also, I have started her on diltiazem 30 mg by mouth every 6 hours. We will see how she does over the next 24 hours. 4. Current kidney disease, stage 2. It started getting worse. At this point, we will continue to monitor this patient closely. We will inform nephrology about these changes in her renal function. 5. Hypertension. Blood pressure is under control. We will continue with the same management. 6. Disposition. At this point, I am planning to keep this patient in the hospital. We will start Cardizem 30 mg by mouth every 6 hours. Also, we will monitor the BMP closely. cc: Ryan Silva MD
[2018-10-30] MEDS: LEVAQUIN 500 MG/D5W 500 MG/100 ML IVPB IV SCH (13:35)
[2018-10-30] MEDS: NEURONTIN PO SCH (20:59)
[2018-10-30] MEDS: MELATONIN PO SCH (20:59)
[2018-10-31] MEDS: CARDIZEM PO SCH ×4 (02:13→20:38)
[2018-10-31 06:14] LABS: HEMATOCRIT 21.9 % (37.0-47.0); HEMOGLOBIN 7.4 g/dL (12.0-16.0); MCH 41.1 PG (27-31); MCHC 33.8 g/dL (33-37); MCV 121.7 FL (81-99); MPV 11.7 FL (7.4-10.4); PLT 40 X1000 (130-400); WBC 1.59 X1000 (4.8-10.8)
[2018-10-31 06:54] LABS: CALCIUM 8.5 mg/dL (8.8-10.2); CREATININE 1.9 mg/dL (0.5-0.9); POTASSIUM 4.3 mmol/L (3.5-5.1)
[2018-10-31] MEDS ORDERED: LASIX IV SCH (07:15)
[2018-10-31] MEDS: LASIX PO SCH (08:56)
[2018-10-31] MEDS: LANOXIN PO SCH (08:56)
[2018-10-31] MEDS: ZOCOR PO SCH (08:57)
[2018-10-31] MEDS: FOLIC ACID PO SCH ×2 (08:57→20:37)
[2018-10-31] MEDS: DITROPAN PO SCH (08:57)
[2018-10-31] MEDS: APRESOLINE PO SCH ×2 (08:58→23:09)
--- NOTE | 2018-10-31 09:29 | PROGRESS NOTE ---
DATE: 10/31/2018 SUBJECTIVE: The patient reports feeling fine. Denies chest discomfort or any palpitation. No fever. OBJECTIVE: Vital Signs: Temperature 97.6 degrees, heart rate 82, respiratory rate 19, blood pressure 100/47, O2 saturation 100% on 2 L nasal cannula. General: This is an 88-year-old female lying in bed, in no acute distress. HEENT: Normocephalic, atraumatic. Neck: No JVD noted. No carotid bruits. No lymphadenopathy. No thyromegaly. Cardiovascular: S1, S2 heard. Irregularly irregular. No murmurs, gallops, or rubs. Regular rate and rhythm. Respiratory: Clear bilaterally to auscultation. No work of breathing or using accessory muscles. Abdomen: Soft, nontender to palpation. Bowel sounds present. No organomegaly. Extremities: No clubbing, cyanosis, or edema. Peripheral pulses present in both legs. Neurological: The patient is alert and oriented x3. Moves 4 extremities. LABORATORY DATA: White count 1.59, hemoglobin 7.4, hematocrit 21.9, platelets 40,000 with creatinine 1.9. Potassium 4.3. ASSESSMENT AND PLAN: 1. New onset pancytopenia. Hematology/Oncology has been consulted. They think this is a drug reaction from the use of Hydrea that the patient was taking for polycythemia. So, at this point, they have signed off. They will see the patient in the office in a week. Hemoglobin has dropped to 7.4 today, so I prefer to go ahead and transfuse 1 unit of PRBCs now. The platelets are low in the range of 40, but no signs of bleeding noted since admission when she had epistaxis. It is important to remark that she was found to have pancytopenia because she was having nose bleed and at that time the platelet count was 20,000. At this point, we will continue to monitor CBC daily. 2. Chronic atrial fibrillation. The patient day before yesterday had rapid ventricular response. She was reaching 130-140s. Patient has been started on diltiazem 30 mg p.o. q.6 hours and heart rate is definitely much better controlled. So, at this point, we will continue with same management and at discharge week we can prescribe Cardizem CD 120 or a higher dose if needed. 3. Chronic kidney disease stage 2. The creatinine at admission was 1.2 compatible with chronic kidney disease stage 2, but has been going higher recently and the highest number that she got was 2.3 with GFR 20, but today she has 1.9. We will continue to monitor. 4. Hypertension. Blood pressure is definitely under control in the range of 105 to 120. At this point, we will continue with the same medications. 5. Disposition. I think this patient has become very weak. She reports that she has been six days in the bed only. There has been an order for physical therapy put in from admission. I think this patient needs to go to rehab facility. So social work nurse has been consulted. cc: Ryan Silva MD [facility]TD[facility]
[2018-10-31] MEDS: LEVAQUIN 500 MG/D5W 500 MG/100 ML IVPB IV SCH (14:09)
[2018-10-31] MEDS: ULTRAM PO PRN ×2 (14:42→20:39)
[2018-10-31] MEDS: NS 1,000 ML IV SCH (14:45)
[2018-10-31] MEDS: TYLENOL PO PRN (18:40)
[2018-10-31] MEDS: NEURONTIN PO SCH (23:09)
[2018-10-31] MEDS: MELATONIN PO SCH (23:10)
[2018-11-01] MEDS: CARDIZEM PO SCH ×4 (02:44→20:14)
[2018-11-01] MEDS: ULTRAM PO PRN ×2 (05:20→20:14)
[2018-11-01 06:48] LABS: CALCIUM 8.3 mg/dL (8.8-10.2); CREATININE 1.5 mg/dL (0.5-0.9); POTASSIUM 3.7 mmol/L (3.5-5.1)
--- NOTE | 2018-11-01 08:09 | EKG Report ---
Test Performed on : 10/29/2018 06:39:48 AM Test Reason : rhythm change Blood Pressure : / mmHG Vent. Rate : 125 BPM Atrial Rate : 101 BPM P-R Int : 000 ms QRS Dur : 122 ms QT Int : 278 ms P-R-T Axes : 000 -61 141 degrees QTc Int : 401 ms Atrial fibrillation. with rapid ventricular response. with premature ventricular or aberrantly conduc bebeto complexes. Left anterior fascicular block Anterior infarct (cited on or before 29-SEP-2017) ST & T wave abnormality, consider lateral ischemia Abnormal ECG When compared with ECG of 27-OCT-2018 04:51, Questionable change in initial forces of Lateral leads Nonspecific T wave abnormality has replaced inverted T waves in Inferior leads Confirmed by Prieto MADDOX, Saroj Torres ([id number]) on 11/04/2018 8:32:21 AM
[2018-11-01] MEDS: LASIX PO SCH (10:26)
[2018-11-01] MEDS: LANOXIN PO SCH (10:27)
[2018-11-01] MEDS: DITROPAN PO SCH (10:29)
[2018-11-01] MEDS: FOLIC ACID PO SCH ×2 (10:30→20:15)
[2018-11-01] MEDS: ZOCOR PO SCH (10:30)
[2018-11-01] MEDS: APRESOLINE PO SCH ×2 (10:30→21:00)
[2018-11-01] MEDS: NS 1,000 ML IV SCH (10:33)
[2018-11-01 11:32] LABS: INR 1.54; PROTIME 19.7 Seconds (11.0-16.0)
[2018-11-01 11:33] LABS: PTT 34.1 Seconds (22.3-41.8)
[2018-11-01 11:37] LABS: EOS# 0.01 X1000 (0.0-0.7); EOS% 0.9 % (0.0-10.0); HEMATOCRIT 26.4 % (37.0-47.0); HEMOGLOBIN 9.1 g/dL (12.0-16.0); LYMPH# 0.69 X1000 (1.2-3.4); LYMPH% 61.6 % (20.5-51.1); MCH 39.2 PG (27-31); MCHC 34.5 g/dL (33-37); MCV 113.8 FL (81-99); MONO# 0.08 X1000 (0.11-0.59); MONO% 7.1 % (1.7-9.3); MPV 12.2 FL (7.4-10.4); NEUT# 0.34 X1000 (1.4-6.5); NEUT% 30.4 % (42.2-75.2); PLT 22 X1000 (130-400); RBC 2.32 XMIL (4.2-5.4); WBC 1.12 X1000 (4.8-10.8)
[2018-11-01 11:46] LABS: D-DIMER 16.1 ug/mLFEU (0.0-0.52)
[2018-11-01 12:41] LABS: BANDS 4 % (0-1); EOS 4 % (1-10); LYMPHS 52 % (21-51); MONO 8 % (1-9); SEGS 32 % (42-75)
[2018-11-01 12:42] LABS: ANISOCYTOSIS 2+; NRBC 2 % (0-0); POLYCHROM OCCASIONAL
[2018-11-01 12:52] LABS: FERRITIN 1674 ng/mL (13-150)
[2018-11-01] MEDS: LEVAQUIN 500 MG/D5W 500 MG/100 ML IVPB IV SCH (15:26)
--- NOTE | 2018-11-01 18:52 | PROGRESS NOTE ---
DATE: 11/01/2018 SUBJECTIVE: Patient resting in bed not in any obvious distress. OBJECTIVE: Vital signs: Temperature is 97.4 degrees, pulse 59, respiratory 14, blood pressure 126/64, oxygen saturation is 100%. HEENT: Atraumatic, normocephalic. Cardiovascular: S1, S2. Respiratory: Has evidence of good entry bilaterally. Abdomen: Soft, nontender. No masses felt. Extremities: No evidence of edema. Central nervous system: No obvious focal deficit noted. LABS: WBC is 1.12, hematocrit 26.4 with a platelet count of 22,000. Sodium 143, potassium 3.7, chloride 107, bicarb 22, BUN is 9, creatinine 1.5. ASSESSMENT AND PLAN: 1. Pancytopenia. Probably induced by medication. Patient does have a history of polycythemia. Follow up on blood counts and transfuse blood products as needed. 2. Chronic atrial fibrillation. Heart rate controlled. 3. Chronic kidney disease. Follow up on renal function. Avoid nephrotoxic agent. 4. Hypertension. Blood pressure controlled. 5. Disposition. Patient will need rehab placement. environmental services coordinator consulted. cc: Ortega Contreras MD
[2018-11-01] MEDS: TYLENOL PO PRN (20:15)
[2018-11-01] MEDS: MELATONIN PO SCH (20:15)
[2018-11-01] MEDS: NEURONTIN PO SCH (20:16)
[2018-11-02] MEDS: CARDIZEM PO SCH ×4 (03:10→21:08)
[2018-11-02] MEDS: ULTRAM PO PRN ×2 (03:11→18:37)
[2018-11-02] MEDS: NS 1,000 ML IV SCH ×2 (03:12→08:29)
[2018-11-02 09:29] LABS: INR 1.4; PROTIME 18.2 Seconds (11.0-16.0)
[2018-11-02] MEDS: FOLIC ACID PO SCH ×2 (09:30→21:08)
[2018-11-02] MEDS: DITROPAN PO SCH (09:30)
[2018-11-02] MEDS: LASIX PO SCH (09:30)
[2018-11-02] MEDS: ZOCOR PO SCH (09:30)
[2018-11-02] MEDS: LANOXIN PO SCH (09:31)
[2018-11-02] MEDS: APRESOLINE PO SCH ×2 (09:31→21:07)
[2018-11-02 09:34] LABS: BASO# 0.01 X1000 (0.0-0.2); BASO% 1.1 % (0.0-0.8); EOS# 0.01 X1000 (0.0-0.7); EOS% 1.1 % (0.0-10.0); HEMOGLOBIN 9.1 g/dL (12.0-16.0); LYMPH# 0.59 X1000 (1.2-3.4); LYMPH% 62.8 % (20.5-51.1); MCH 39.9 PG (27-31); MONO# 0.08 X1000 (0.11-0.59); MONO% 8.5 % (1.7-9.3); MPV 11.5 FL (7.4-10.4); NEUT% 26.5 % (42.2-75.2); PLT 59 X1000 (130-400); RBC 2.28 XMIL (4.2-5.4); WBC 0.94 X1000 (4.8-10.8)
[2018-11-02 09:39] LABS: NEUT# 0.25 X1000 (1.4-6.5)
[2018-11-02 09:48] LABS: LYMPHS 66 % (21-51); MONO 6 % (1-9); SEGS 28 % (42-75)
[2018-11-02 10:02] LABS: CALCIUM 8.2 mg/dL (8.8-10.2); CREATININE 1.2 mg/dL (0.5-0.9); POTASSIUM 3.3 mmol/L (3.5-5.1)
[2018-11-02] MEDS: LEVAQUIN 500 MG/D5W 500 MG/100 ML IVPB IV SCH (11:36)
--- NOTE | 2018-11-02 12:31 | HEMO/ONC PROGRESS NOTE ---
DATE: 11/02/2018 SUBJECTIVE: Ms. Huizar is lying in hospital bed. She is in no acute distress at this time. OBJECTIVE: Vital signs: Temperature 97.8 degrees, heart rate 70, respirations 16, blood pressure 122/47, O2 saturation 94% on 2 L nasal cannula. LABORATORY: White blood cell 0.94, hemoglobin 9.1, hematocrit 26.0, platelet count 59,000, ANC 250, sodium 145, potassium 3.3, chloride 107, CO2 25, BUN 47, creatinine 1.2, glucose 139. PHYSICAL EXAM: CV: Irregular irregular rhythm noted. Respiratory: No respiratory effort. Clear to auscultation. No rhonchi, rales, or wheezing noted. Gastrointestinal : Abdomen is soft. Positive bowel sounds. Extremities: No edema. ASSESSMENT AND PLAN: 1. Pancytopenia. Initially we felt this was secondary to her Hydrea. However, Hydrea effect should be resolved at this point. The patient's counts actually corrected back on 10/28/2018. Since that time, her counts have declined. She has required additional units of packed red blood cells as well as platelets. There is suspicion that she may have progressed to myelofibrosis. We recommend proceeding with a bone marrow biopsy at this time. Discussed with the patient today. We will continue to monitor her counts and transfuse as needed. Continue neutropenic precautions. Follow up on bone marrow results when they become available. 2. Chronic atrial fibrillation. Rate controlled. 3. Chronic kidney disease. Creatinine looks to be at her baseline. Continue to monitor. 4. Hypertension. Well controlled at this time. 5. Disposition. Plan will be for rehab placement. Social work is working on placement at this time. 6. History of polycythemia vera. Continue to hold Hydrea. 7. Epistaxis. No further episodes at this time. Dictated by DOMINICK Dubois for Katlin Cowan MD cc: Katlin Cowan MD I have seen and examined the patient and the above note reflects my history, physical and assessment and plan. Katlin Cowan MD [facility]ITAL[facility]ina
--- NOTE | 2018-11-02 13:57 | Diag Imaging Result Doc PS360 ---
CHEST-2 VIEWS - 11/02/2018 INDICATION: Lung scan COMPARISON: 10/27/2018 FINDINGS: Stable mild cardiomegaly. Pulmonary vascularity is top normal. There are trace bilateral pleural effusions. No significant infiltrates or edema. IMPRESSION: Cardiomegaly. Trace bilateral pleural effusions. Electronically signed by Leonardo Clarke 11/02/2018 1:55 PM
--- NOTE | 2018-11-02 14:10 | Diag Imaging Result Doc PS360 ---
LUNG SCAN / VQ - 11/02/2018 INDICATION: cough, pulm edema, d-dimer of 16 TECHNIQUE: 36 mCi of DTPA was used for inhalation. 6.2 mCi of MAA was used for injection. COMPARISON: Chest x-ray from today FINDINGS: There is normal localization pattern of the radiotracer's. There is no evidence of pulmonary perfusion defects. IMPRESSION: Negative for pulmonary embolism. Electronically signed by Leonardo Clarke 11/02/2018 2:07 PM
[2018-11-02] MEDS ORDERED: SENSORCAINE-MPF 0.5%/EPI 1:200,000 INJ ONE (15:43)
--- NOTE | 2018-11-02 17:13 | PROGRESS NOTE ---
DATE: 11/02/2018 INTERVAL HISTORY: The patient had no acute events overnight. No further epistaxis. No new signs or symptoms of bleeding. REVIEW OF SYSTEMS: Twelve point review of systems negative except as per interval history. LABORATORY DATA: White count 0.94, hemoglobin 9.1, hematocrit 26.0, platelets 59,000, neutrophil percentage 26.5. PT 18.2, INR 1.4. Sodium 145, potassium 3.3, chloride 107, bicarb 25, BUN 47, creatinine 1.2, glucose 139, calcium 8.2, iron 168, ferritin 1674, LDH 482, B12 1677. D-dimer 16.1 VITAL SIGNS: T-max 98.4 degrees, pulse 70, respirations 16, blood pressure 122/47, O2 saturation 94% on 2 L by nasal cannula. IMAGING STUDIES: Chest x-ray with stable mild cardiomegaly. Trace bilateral pleural effusions without any significant infiltrates or edema. V/Q scan negative for pulmonary embolism. PHYSICAL EXAMINATION: General: No acute distress. Resting comfortably in bed. Vitals: As above. HEENT: Normocephalic, atraumatic. Moist mucous membranes. No cervical adenopathy. Cardiovascular: Regular rate and rhythm. No murmurs, rubs, or gallops. Pulmonary: Clear to auscultation bilaterally. No wheezing, rales, or rhonchi. Abdomen: Soft, nontender, nondistended. Bowel sounds positive. Extremities: Peripheral pulses intact. No clubbing, cyanosis, or edema. Neurologic: Cranial nerves 2-12 grossly intact. No focal motor or sensory deficits. Psychiatric: Normal mood and affect. Awake, alert, oriented x3. Skin: No new rashes or lesions noted. No significant bruising. ASSESSMENT AND PLAN: 1. Pancytopenia, initially thought to be related to patient's home hydroxyurea. Discussed with Oncology and they believe that the length of time her pancytopenia has continued is outside the range that would be expected if this was drug related. There is concern for progressive myelofibrosis. They plan on bone marrow biopsy in the immediate future. Neutropenia continues to worsen. We will continue neutropenic precautions. Hemoglobin stable. Platelets actually slightly improved. Continue to monitor for any signs or symptoms of bleeding and transfuse if needed. 2. Chronic atrial fibrillation, well controlled on current medication. Continue digoxin. 3. Acute kidney injury on chronic kidney disease 3. Creatinine much improved from admission. Likely nearing baseline at this point. Creatinine as high as 2.3, but back down to 1.2, now. Continue to monitor her. This is likely baseline, although there was 1 measurement last year as low as 0.9. Continue to monitor. 4. Hypertension. Blood pressure with good control on current diltiazem, Lasix. 5. Markedly elevated D-dimer. V/Q scan obtained and negative. No lower extremity edema. I suspect this is related to her underlying bone marrow process. We will monitor. 6. Deep vein thrombosis prophylaxis with sequential compression devices.
[2018-11-02] MEDS: MELATONIN PO SCH (21:07)
[2018-11-02] MEDS: NEURONTIN PO SCH (21:08)
[2018-11-03] MEDS: ULTRAM PO PRN ×3 (03:44→23:26)
[2018-11-03] MEDS: NS 1,000 ML IV SCH ×3 (03:45→23:26)
[2018-11-03] MEDS: CARDIZEM PO SCH ×4 (04:56→22:12)
[2018-11-03 05:47] LABS: HEMATOCRIT 22.7 % (37.0-47.0); HEMOGLOBIN 7.9 g/dL (12.0-16.0); MCH 40.1 PG (27-31); MCHC 34.8 g/dL (33-37); MCV 115.2 FL (81-99); MPV 11.8 FL (7.4-10.4); PLT 46 X1000 (130-400); RBC 1.97 XMIL (4.2-5.4); WBC 1.05 X1000 (4.8-10.8)
[2018-11-03 06:08] LABS: INR 1.26; PROTIME 16.8 Seconds (11.0-16.0)
[2018-11-03 06:19] LABS: AGAP 8; ALBUMIN 3.2 g/dL (3.5-5.0); BUN 35 mg/dL (8-22); CALCIUM 8.3 mg/dL (8.8-10.2); CHLORIDE 108 mmol/L (98-107); COSMO 294; CREATININE 0.8 mg/dL (0.5-0.9); ESTIMATED GFR > 60; GLUCOSE 116 mg/dL (70-104); PHOSPHORUS 2.3 mg/dL (2.7-4.5); POTASSIUM 3.3 mmol/L (3.5-5.1); SODIUM 143 mmol/L (136-145); TCO2 27 mmol/L (25-35)
[2018-11-03] MEDS ORDERED: SENSORCAINE-MPF 0.5%/EPI 1:200,000 ONE (07:50)
[2018-11-03] MEDS ORDERED: XYLOCAINE-MPF 2% ONE (09:04)
[2018-11-03] MEDS ORDERED: DIPRIVAN 1% ONE (09:04)
[2018-11-03 09:40] LABS: FLOW CYTOMETERY SOURCE BONE MARROW; LEUKEMIA LYMPHOMA BY FLOW REFERRED FOR TESTING
[2018-11-03] MEDS: APRESOLINE PO SCH (10:02)
[2018-11-03] MEDS: LANOXIN PO SCH (10:02)
[2018-11-03] MEDS: FOLIC ACID PO SCH ×2 (10:07→22:11)
[2018-11-03] MEDS: DITROPAN PO SCH (10:07)
[2018-11-03] MEDS: ZOCOR PO SCH (10:07)
[2018-11-03] MEDS: LASIX PO SCH (10:12)
[2018-11-03] MEDS: LEVAQUIN 500 MG/D5W 500 MG/100 ML IVPB IV SCH (11:52)
[2018-11-03] MEDS ORDERED: K-PHOS PO ONE (13:22)
--- NOTE | 2018-11-03 13:39 | PROGRESS NOTE ---
DATE: 11/03/2018 OVERNIGHT: No acute events. SUBJECTIVE: The patient underwent bone marrow biopsy from iliac crest today, which she tolerated the procedure well. However, she is complaining of a little bit of pain at the biopsy site. She continues to have pancytopenia. We discussed the plan of care, and I answered all of her questions. OBJECTIVE: Vital signs: Temperature of 97.9 degrees, pulse 72 per minute, blood pressure 120/57. She is saturating 100% on room air. General examination: On physical examination, does not appear in acute distress. HEENT: Oral cavity is dry. There is subconjunctival and oral cavity pallor. No cyanosis, clubbing, or icterus. Lungs: Air entry bilaterally equal. No wheeze, rhonchi. Mild bilateral infrascapular crackles. Cardiovascular: S1, S2 normal. Not tachycardic. No murmur, rub, or gallop. Abdomen: Soft, nontender. Extremities: No lower extremity edema. She has a dressing of sacral decubitus ulcer, which she had done because she has been feeling very weak over last few weeks and not being able to ambulate at home. LABS: Suggestive of persistent pancytopenia. INR of 1.2. Hypokalemia, hyperchloremia, improving acute kidney injury, and hypophosphatemia. ASSESSMENT AND PLAN: 1. 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 She is status post bone marrow biopsy on November 03. We will await results. She is now status post 4 units of platelets and 3 units of packed red blood cells since admission. Continue to monitor complete blood count daily. 2. Chronic atrial fibrillation on home Coumadin. Continue patient's home digoxin and diltiazem. Continue to hold Coumadin considering her severe thrombocytopenia requiring platelet transfusion. 3. History of essential hypertension. Continue diltiazem and hydralazine. I will hold her hydralazine for now considering her lower blood pressures. I will also stop her Lasix for now as she is receiving intravenous fluids. 4. History of hyperlipidemia. Continue home simvastatin. 5. Overactive bladder. Continue home oxybutynin. 6. Chronic pain. Continue home tramadol, gabapentin. 7. Bilateral lower lobe pneumonia. Continue intravenous levofloxacin for now until the patient's pancytopenia improves. 8. Hypokalemia, hyperchloremia and hypophosphatemia being repleted. Follow up with daily basic metabolic panel. 9. Disposition: Patient remains inside the hospital for her persistent pancytopenia. At the time of discharge, the patient might be a good candidate of rehabilitation. I expect the patient to go to rehabilitation considering her significant weakness. Plan of care was discussed with all of her questions having been answered. cc: Kali Ham MD
[2018-11-03] MEDS: KLOR-CON PO SCH ×2 (13:41→22:12)
[2018-11-03] MEDS: MELATONIN PO SCH (22:11)
[2018-11-03] MEDS: NEURONTIN PO SCH (22:12)
[2018-11-04] MEDS: CARDIZEM PO SCH ×4 (01:30→21:22)
[2018-11-04 07:21] LABS: AGAP 10; BUN 27 mg/dL (8-22); CALCIUM 8.2 mg/dL (8.8-10.2); CHLORIDE 111 mmol/L (98-107); COSMO 296; CREATININE 0.7 mg/dL (0.5-0.9); DIGOXIN 0.7 ng/mL (0.9-2.0); ESTIMATED GFR > 60; GLUCOSE 101 mg/dL (70-104); PHOSPHORUS 2.2 mg/dL (2.7-4.5); POTASSIUM 4.1 mmol/L (3.5-5.1); SODIUM 146 mmol/L (136-145); TCO2 25 mmol/L (25-35)
[2018-11-04] MEDS: FOLIC ACID PO SCH ×2 (10:11→21:22)
[2018-11-04] MEDS: ZOCOR PO SCH (10:11)
[2018-11-04] MEDS: LANOXIN PO SCH (10:12)
[2018-11-04] MEDS: DITROPAN PO SCH (10:12)
[2018-11-04] MEDS: KLOR-CON PO SCH (10:12)
[2018-11-04 11:15] LABS: BASO# 0.01 X1000 (0.0-0.2); BASO% 0.9 % (0.0-0.8); EOS# 0.01 X1000 (0.0-0.7); EOS% 0.9 % (0.0-10.0); HEMATOCRIT 22.6 % (37.0-47.0); HEMOGLOBIN 7.7 g/dL (12.0-16.0); LYMPH# 0.78 X1000 (1.2-3.4); LYMPH% 69.6 % (20.5-51.1); MCH 39.3 PG (27-31); MCHC 34.1 g/dL (33-37); MCV 115.3 FL (81-99); MONO# 0.15 X1000 (0.11-0.59); MONO% 13.4 % (1.7-9.3); MPV 11.4 FL (7.4-10.4); NEUT% 15.2 % (42.2-75.2); PLT 55 X1000 (130-400); RBC 1.96 XMIL (4.2-5.4); WBC 1.12 X1000 (4.8-10.8)
[2018-11-04 11:20] LABS: NEUT# 0.17 X1000 (1.4-6.5)
[2018-11-04 12:09] LABS: LYMPHS 76 % (21-51); MONO 4 % (1-9); SEGS 20 % (42-75)
[2018-11-04 12:10] LABS: ANISOCYTOSIS 1+
[2018-11-04] MEDS ORDERED: LASIX IV ONE (13:13)
--- NOTE | 2018-11-04 13:44 | PROGRESS NOTE ---
DATE: 11/04/2018 SUBJECTIVE: Overnight, no acute events. She tolerated the bone marrow biopsy well. This morning, she was able to come out of the bed and walk up to the door without any trouble. The patient's son is at bedside and her supervisor metal furniture assembly is at bedside. All of their questions have been answered. The patient denies feeling chest pain or having shortness of breath. I discussed about the plan of care and answered all of their questions. OBJECTIVE: Vital Signs: Temperature 97.9 degrees, pulse 68 per minute, blood pressure 150/66, saturating 100% on 2 L nasal cannula. General: She does not appear in acute distress. HEENT: Conjunctival and oral pallor. No cyanosis, clubbing, or icterus. Lungs: Air entry bilaterally equal with decreased air entry with inspiratory crackles at the bilateral bases, more pronounced on the left side. No wheeze or rhonchi. Heart: S1 and S2 normal. No murmur, rub, or gallop. Abdomen: Soft and nontender. Extremities: No lower extremity edema. Skin: She has a dressing over a sacral decubitus ulcer, which appears to be very superficial bruising. LABORATORY DATA: Suggestive of persistent pancytopenia. MICROBIOLOGY: Blood culture no growth to date. ASSESSMENT AND PLAN: 1. Pancytopenia. Differential includes new-onset myelofibrosis. Pending bone marrow biopsy results. Her use of hydroxyurea for polycythemia vera, status post bone marrow biopsy on November 03. Follow up with final results. She is status post 4 units of platelets and 3 units of packed red blood cells since admission. Continue to monitor blood counts daily. 2. Chronic atrial fibrillation, on home Coumadin. Continue digoxin and diltiazem. Hold Coumadin considering severe thrombocytopenia. 3. History of hypertension. Continue diltiazem. I am holding her hydralazine considering low blood pressure and the fact that I am giving her Lasix. 4. Acute hypoxic respiratory failure because of pneumonia. She is also positive 7 L since admission. I will give her 1-time Lasix and we will try to wean down oxygen as tolerated. 5. Continue home simvastatin for hyperlipidemia, oxybutynin for overactive bladder, tramadol and gabapentin for chronic pain. 6. Bilateral lower lobe pneumonia. Continue intravenous levofloxacin until pancytopenia improves. 7. Hypernatremia and hyperchloremia, likely because of intravenous fluid use, which I have stopped. Hypokalemia is improved. Continue phosphate repletion and follow up with phosphate tomorrow. 8. Disposition. The patient remains inside the hospital. I will wait until her blood counts show improvement at which point I will consider discharging her. If she continues to feel better and able to ambulate, I might consider discharging her back to the assisted living facility, or if she is too weak then we might consider rehab in the future. Plan of care was discussed with the patient and her son at bedside who is surrogate decision- maker. All of their questions have been answered. cc: Kali Ham MD
[2018-11-04] MEDS: LEVAQUIN 500 MG/D5W 500 MG/100 ML IVPB IV SCH (13:48)
[2018-11-04] MEDS: ULTRAM PO PRN ×2 (13:49→21:21)
[2018-11-04] MEDS: K-PHOS PO SCH ×2 (17:07→21:22)
[2018-11-04] MEDS: NEURONTIN PO SCH (21:22)
[2018-11-04] MEDS: MELATONIN PO SCH (21:22)
--- NOTE | 2018-11-04 21:54 | HEMO/ONC PROGRESS NOTE ---
DATE: 11/04/2018 SUBJECTIVE: Ms. Huizar is sitting up in her hospital chair in her room with her son. She is in no acute distress at this time. OBJECTIVE: Vital signs: Temperature 97.9 degrees, heart rate 68, respirations 16, blood pressure 150/66, O2 saturation 100% on 2 L nasal cannula. LABORATORY: White blood cells 1.12, hemoglobin 7.7, hematocrit 22.6, platelet count 55,000. ANC 0.17. Sodium 146, potassium 4.1, chloride 111, CO2 of 25, BUN 27, creatinine 0.7, glucose 101. PHYSICAL EXAMINATION: Cardiovascular: S1, S2 heard. Irregularly irregular. Rate controlled. Respiratory: Chest is clear with normal respiratory effort. Abdomen: Soft, nontender, nondistended, with normoactive bowel sounds. Extremities: Some trace edema. ASSESSMENT AND PLAN: 1. Pancytopenia. The patient is now status post bone marrow biopsy. There is concern that she may be progressing to myelofibrosis. However, preliminary bone marrow results so far are indicative more of drug effect and acute illness. Final path results are pending, however. Reviewed preliminary results with the patient and her son today. We will follow up on final path once it becomes available. Continue to monitor counts and transfuse as needed. Would recommend transfusing packed red blood cells for a hemoglobin of less than 7.5. Would also recommend transfusing for a platelet count less than 20. Would also recommend transfusing if she has any sort of acute bleeding or if the patient became rather symptomatic with a hemoglobin greater than 7.5 but less than 8.0. Continue neutropenic precautions. 2. Chronic atrial fibrillation. Coumadin is on hold currently. The primary team is monitoring her digoxin levels. She continues on diltiazem. 3. Hypertension. Being monitored closely. Continue per primary team. 4. Acute hypoxic respiratory failure due to pneumonia. She will continue on antibiotics and management per the primary team. DISPOSITION: The patient will remain in the hospital for the time being. The idea is that she will likely need rehab at discharge. We are going to sign off for the weekend. We are available as needed. We will resume regular followup on 11/07/2018. Dictated by DOMINICK Dubois for Katlin Cowan MD cc: Katlin Cowan MD I have seen and examined the patient and the above note reflects my history, physical, assessment and plan. Katlin Cowan MD [facility]
[2018-11-05] MEDS: CARDIZEM PO SCH ×4 (02:16→20:38)
[2018-11-05] MEDS: ULTRAM PO PRN ×3 (05:14→22:28)
[2018-11-05 06:42] LABS: ALBUMIN 3.1 g/dL (3.5-5.0); CALCIUM 8.4 mg/dL (8.8-10.2); CREATININE 1.1 mg/dL (0.5-0.9); PHOSPHORUS 2.3 mg/dL (2.7-4.5); POTASSIUM 3.9 mmol/L (3.5-5.1)
[2018-11-05 07:08] LABS: BASO# 0.01 X1000 (0.0-0.2); BASO% 0.7 % (0.0-0.8); EOS# 0.02 X1000 (0.0-0.7); EOS% 1.3 % (0.0-10.0); HEMATOCRIT 23.4 % (37.0-47.0); HEMOGLOBIN 7.9 g/dL (12.0-16.0); LYMPH# 0.98 X1000 (1.2-3.4); LYMPH% 65.3 % (20.5-51.1); MCH 38.5 PG (27-31); MCHC 33.8 g/dL (33-37); MCV 114.1 FL (81-99); MONO# 0.25 X1000 (0.11-0.59); MONO% 16.7 % (1.7-9.3); MPV 11.3 FL (7.4-10.4); PLT 75 X1000 (130-400); RBC 2.05 XMIL (4.2-5.4)
[2018-11-05 07:16] LABS: NEUT# 0.24 X1000 (1.4-6.5)
[2018-11-05] MEDS: ZOCOR PO SCH (08:09)
[2018-11-05] MEDS: K-PHOS PO SCH ×2 (08:09→20:38)
[2018-11-05] MEDS: LANOXIN PO SCH (08:09)
[2018-11-05] MEDS: FOLIC ACID PO SCH ×2 (08:09→20:38)
[2018-11-05] MEDS: DITROPAN PO SCH (08:10)
[2018-11-05] MEDS: LEVAQUIN 500 MG/D5W 500 MG/100 ML IVPB IV SCH (12:39)
--- NOTE | 2018-11-05 17:41 | PROGRESS NOTE ---
DATE: 11/05/2018 OVERNIGHT: No acute events. SUBJECTIVE: She is off oxygen now. She is denying any chest pain or dyspnea. She was able to walk up to the bathroom and come back without getting shortness of breath. The patient's son is at bedside. Plan of care was discussed with her. All of their questions have been answered. Apparently, the prelim results on bone marrow biopsy has suggested that this could be likely a medication reaction than primary bone marrow process. This is discussed with the patient about holding Coumadin until a platelet count becomes more normal. OBJECTIVE: Vital Signs: Temperature 98.1, pulse 88 per minute, blood pressure 128/58, saturating 96% on room air. PHYSICAL EXAMINATION: General: Does not appear in acute distress. HEENT: Oral cavity is moist. Lungs: Air entry bilaterally equal with inspiratory crackles in left infrascapular region. Otherwise, no wheeze or crackles on the right side. She does have conjunctival and oral pallor, but no clubbing or icterus. Cardiovascular: S1, S2 normal. No murmur, rub or gallop. Appears irregularly irregular. Extremities: No lower extremity edema. She has a dressing over sacral decubitus ulcer, which appears to be very superficial bruising and appears to be healing. LABS: Today suggestive of improving her WBC, hemoglobin and platelet count. Electrolytes appear to be at baseline except hypophosphatemia. ASSESSMENT AND PLAN: 1. Pancytopenia. Differential includes hydroxyurea induced which she was taking for polycythemia vera versus new-onset myelofibrosis versus others. Follow up final bone marrow biopsy results. Urine results suggest that it is likely related to hydroxyurea. She is status post 4 platelets and 3 units of PRBCs since admission. Continue to monitor blood counts. No signs of bleeding or she does not have symptoms of anemia at the moment. 2. Chronic atrial fibrillation on home Coumadin. Continue digoxin, diltiazem, hold Coumadin considering her severe thrombocytopenia. 3. Acute hypoxic respiratory failure because of pneumonia and bilateral pleural effusion. Continue levofloxacin until her counts become stable. I will consider additional Lasix as needed. 4. History of essential hypertension. Continue diltiazem. Hold hydralazine considering her low blood pressure. 5. Continue simvastatin for hyperlipidemia, oxybutynin for overactive bladder, tramadol and gabapentin for chronic pain, potassium phosphate for hypophosphatemia. 6. Disposition. The patient appears to be improving each day in terms of her physical strength. If she continues to improve, I will consider discharging her back to her assisted living facility and set up home physical therapy if her counts continue to improve. I am anticipating discharge early. 7. Plan of care was discussed with the patient and her son at bedside. All of their questions have been answered. cc: Kali Ham MD
[2018-11-05] MEDS: MELATONIN PO SCH (20:38)
[2018-11-05] MEDS: NEURONTIN PO SCH (20:38)
[2018-11-06] MEDS: CARDIZEM PO SCH ×4 (02:13→21:37)
[2018-11-06] MEDS: ULTRAM PO PRN ×3 (06:05→21:38)
[2018-11-06] MEDS: DITROPAN PO SCH (10:32)
[2018-11-06] MEDS: FOLIC ACID PO SCH ×2 (10:32→21:37)
[2018-11-06] MEDS: ZOCOR PO SCH (10:33)
[2018-11-06] MEDS: K-PHOS PO SCH ×2 (10:33→21:37)
[2018-11-06] MEDS: LANOXIN PO SCH (10:34)
[2018-11-06] MEDS: LEVAQUIN 500 MG/D5W 500 MG/100 ML IVPB IV SCH (12:58)
--- NOTE | 2018-11-06 15:15 | PROGRESS NOTE ---
DATE: 11/06/2018 Overnight no acute events. Her vitals were unremarkable this morning. She is denying any complaints. She is eating well. She was able to come out of bed and was sitting in the chair. We discussed about prelim bone marrow biopsy results which have been suggestive of the drug reaction and bone marrow suppression to that without any known malignancy. However, the final results are pending. OBJECTIVE: Temperature 98.6 degrees, pulse 66, blood pressure 105/53 saturating 100% on room air. Physical Examination: General: Does not appear in acute distress. No pallor, cyanosis, clubbing, or icterus. Oral cavity is moist. No pharyngeal congestion. Air entry bilaterally equal with inspiratory crackles in left infrascapular region. No wheeze or rhonchi. Cardiovascular: S1, S2 normal. No murmur, rub, or gallop. Appears irregularly irregular. Extremities: No lower extremity edema. She has a dressing over sacral decubitus ulcer which appears to be superficial bruising and appears to be healing well. LABS: No new labs today. ASSESSMENT AND PLAN: 1. Pancytopenia. Differential includes hydroxyurea induced which she was taking for polycythemia vera versus new onset of myelofibrosis, less likely considering bone marrow results. Follow up with final biopsy results. She is status post 4 units of platelets and 3 units of PRBCs since admission. Follow up blood counts tomorrow. 2. Chronic atrial fibrillation on home Coumadin. Continue digoxin, lower the dose of diltiazem and hold anticoagulation considering her severe thrombocytopenia. Currently rate acceptable. 3. Acute hypoxic respiratory failure because of pneumonia and bilateral pleural effusions. Continue levofloxacin until her counts become stable. Her respiratory failure has improved. 4. History of essential hypertension. Continue lower dose of diltiazem. Hold hydralazine. 5. Continue simvastatin for hyperlipidemia, oxybutynin for overactive bladder, tramadol and gabapentin for chronic pain. Potassium phosphate for hypophosphatemia. 6. Disposition: The patient appears to be improving each day. I will follow up with blood counts. When blood counts remains at acceptable level, at that point I will consider discharging her back to her facility and will set up home physical therapy. Plan of care was discussed with her. All of her questions have been answered. cc: Kali Ham MD
[2018-11-06] MEDS: NEURONTIN PO SCH (21:37)
[2018-11-06] MEDS: MELATONIN PO SCH (21:37)
[2018-11-07] MEDS: CARDIZEM PO SCH ×2 (05:07→13:01)
[2018-11-07] MEDS: ULTRAM PO PRN (05:29)
[2018-11-07 06:13] LABS: BASO# 0.01 X1000 (0.0-0.2); BASO% 0.4 % (0.0-0.8); EOS# 0.02 X1000 (0.0-0.7); EOS% 0.8 % (0.0-10.0); HEMATOCRIT 23.4 % (37.0-47.0); HEMOGLOBIN 7.9 g/dL (12.0-16.0); IMM GRAN# 0.04 X1000 (0.0-0.04); IMM GRAN% 1.5 % (0.0-0.5); LYMPH# 1.43 X1000 (1.2-3.4); LYMPH% 54.2 % (20.5-51.1); MCH 38.7 PG (27-31); MCHC 33.8 g/dL (33-37); MCV 114.7 FL (81-99); MONO% 18.9 % (1.7-9.3); MPV 10.6 FL (7.4-10.4); NEUT# 0.64 X1000 (1.4-6.5); NEUT% 24.2 % (42.2-75.2); PLT 111 X1000 (130-400); RBC 2.04 XMIL (4.2-5.4); WBC 2.64 X1000 (4.8-10.8)
[2018-11-07 06:16] LABS: LYMPHS 70 % (21-51); SEGS 30 % (42-75)
[2018-11-07] MEDS: DITROPAN PO SCH (09:58)
[2018-11-07] MEDS: FOLIC ACID PO SCH ×2 (09:58→22:09)
[2018-11-07] MEDS: LANOXIN PO SCH (09:58)
[2018-11-07] MEDS: ZOCOR PO SCH (09:59)
[2018-11-07] MEDS: K-PHOS PO SCH (09:59)
[2018-11-07 12:34] LABS: CALCIUM 8.9 mg/dL (8.8-10.2); POTASSIUM 3.9 mmol/L (3.5-5.1)
[2018-11-07] MEDS: LEVAQUIN 500 MG/D5W 500 MG/100 ML IVPB IV SCH (13:01)
[2018-11-07] MEDS ORDERED: LASIX IV ONE (14:15)
--- NOTE | 2018-11-07 15:14 | PROGRESS NOTE ---
DATE: 11/07/2018 OVERNIGHT: No acute events. After decreasing diltiazem frequency her blood pressure was better. SUBJECTIVE: Patient's quality assurance tester and her son are at bedside. Patient says that she has been feeling very good and she was able to come out of bed and go to the bathroom without getting any symptoms. We discussed about improving blood count and the fact that it is still very low and we might have to wait for another day or two before we consider discharge. She denies any fevers, chills. OBJECTIVE: Vital Signs: Currently, vitals detect she has been afebrile with temperature of 97.4, pulse 78, blood pressure 124/72, saturating 100% on room air. PHYSICAL EXAMINATION: General: Does not appear in acute distress. HEENT: Oral cavity is moist. Lungs: Air entry bilaterally equal. No wheeze or rhonchi. She has crackles in left lower infrascapular region. Cardiovascular: S1, S2 normal. No murmur or gallop. Abdomen: Soft, nontender. No lower extremity edema. She is sitting in the chair. Neurologic: Alert oriented x 3. LABS: Today suggestive of WBC count of 2.6, hemoglobin of 7.9, platelet of 111,000. Normal electrolytes. GFR of 53. Microbiology: No new microbiological data. ASSESSMENT AND PLAN: 1. Pancytopenia, likely related to hydroxyurea-induced bone marrow suppression versus new onset myelofibrosis which is less likely considering preliminary biopsy results. Follow up final bone marrow biopsy results, Hem/Onc on board. She is status post 4 units of platelets and 3 PRBCs since admission. Follow up blood counts on 11/09/2017. 2. Chronic atrial fibrillation, on home Coumadin. Continue digoxin, lower dose of diltiazem. Hold Coumadin considering thrombocytopenia. Currently rate acceptable. I would advise her to discuss with her regular doctor about restarting Coumadin. 3. Acute hypoxic respiratory failure because of pneumonia and bilateral pleural effusions. Continue levofloxacin until her counts become stable. Her respiratory failure has improved. She is no longer requiring oxygen. I will give one time dose of Lasix today as well. 4. History of essential hypertension. Continue lower dose of diltiazem. Hold hydralazine. 5. Continue simvastatin for hyperlipidemia, oxybutynin for overactive bladder, tramadol and gabapentin for chronic pain, MiraLAX for constipation. Potassium phosphate has been discontinued as her hypophosphatemia has been resolved. 6. Disposition: The patient remains inside the hospital. My plan is to repeat blood count on Wednesday. If they show consistent improvement, my plan is to discharge her and that she should follow up with her regular doctor as an outpatient. I will also discuss with her about anticoagulation that she should resume once her platelet count becomes normal outpatient. Plan of care was discussed with her. All of her questions have been answered. cc: Kali Ham MD
[2018-11-07] MEDS: MIRALAX PO SCH (15:46)
[2018-11-07] MEDS: MELATONIN PO SCH (22:09)
[2018-11-07] MEDS: NEURONTIN PO SCH (22:09)
[2018-11-08] MEDS: CARDIZEM PO SCH ×4 (05:30→20:45)
[2018-11-08] MEDS: MIRALAX PO SCH (11:04)
[2018-11-08] MEDS: LANOXIN PO SCH (11:04)
[2018-11-08] MEDS: ZOCOR PO SCH (11:07)
[2018-11-08] MEDS: FOLIC ACID PO SCH ×2 (11:08→20:45)
[2018-11-08] MEDS: DITROPAN PO SCH (11:08)
[2018-11-08] MEDS: LEVAQUIN 500 MG/D5W 500 MG/100 ML IVPB IV SCH (11:42)
--- NOTE | 2018-11-08 12:28 | PROGRESS NOTE ---
DATE: 11/08/2018 OVERNIGHT: No acute events. SUBJECTIVE: She is sitting in the chair denying any complaints. She is eating her breakfast. She is saying that she has eaten more on an every-day basis. She has not had a bowel movement yet. I have started her on MiraLAX. OBJECTIVE: Vitals: Evaluation suggests temperature of 97.9, pulse 81 per minute, blood pressure 130/60, saturating 100% on room air. General appearance: On physical examination, she generally does not appear in acute distress. Mouth: Oral cavity is moist. Lungs: Air entry bilaterally equal. No wheeze or rhonchi. She does have bilateral infrascapular crackles, which are significantly improved than yesterday. The crackles also seem to be getting better after a strong cough. Extremities: No lower extremity edema. She is sitting in the chair. Neurologic: Alert and oriented x3. LABS: No new labs today. ASSESSMENT AND PLAN: 1. Pancytopenia likely related to hydroxyurea-induced bone marrow suppression versus new-onset myelofibrosis versus other infectious etiology. Primary bone marrow biopsy does not suggest primary bone marrow disorder at the moment. Follow up final results. Hematology/Oncology on board. She is status post 4 units of platelets and 3 units of packed red blood cells since admission. Follow up blood count on 11/09/2018. 2. Chronic atrial fibrillation on home Coumadin. Continue digoxin, lower dose of diltiazem. Hold Coumadin. Considering her thrombocytopenia, I will consider starting her on deep vein thrombosis prophylaxis tomorrow if her thrombocytopenia has consistently resolved. I would encourage her to move around. Continue sequential compression devices for deep vein thrombosis prophylaxis for now. 3. Acute hypoxic respiratory failure because of pneumonia and bilateral pleural effusions. Continue levofloxacin until her counts become stable. Her hypoxic respiratory failure is resolved now. She is not using oxygen anymore. She did receive 1 time dose of Lasix yesterday following which she has shown significant improvement. 4. History of essential hypertension. Continue lower dose of diltiazem. Hold hydralazine. 5. Continue simvastatin for hyperlipidemia, oxybutynin for overactive bladder, tramadol and gabapentin for chronic pain, MiraLAX for constipation. Hypophosphatemia had been resolved. DISPOSITION: I will await CBC results tomorrow and then consider discharging her. I will hold discussion of anticoagulation for her Coumadin tomorrow, and accordingly my plan is to discharge her on subcutaneous Lovenox with bridge of Coumadin. Plan of care was discussed with the patient. It would be discussed with the her reservoir caretaker and son at bedside tomorrow. cc: Kali Ham MD MTDD
[2018-11-08] MEDS: ULTRAM PO PRN ×2 (13:32→20:45)
[2018-11-08] MEDS: TYLENOL PO PRN ×2 (15:40→20:45)
[2018-11-08] MEDS: NEURONTIN PO SCH (20:45)
[2018-11-08] MEDS: MELATONIN PO SCH (20:45)
[2018-11-09] MEDS: ULTRAM PO PRN (05:08)
[2018-11-09] MEDS: CARDIZEM PO SCH ×2 (05:09→12:42)
[2018-11-09] MEDS: TYLENOL PO PRN (05:09)
[2018-11-09 06:22] LABS: INR 1.12; PROTIME 15.3 Seconds (11.0-16.0)
[2018-11-09 06:25] LABS: EOS# 0.01 X1000 (0.0-0.7); EOS% 0.3 % (0.0-10.0); HEMATOCRIT 24.2 % (37.0-47.0); HEMOGLOBIN 8.1 g/dL (12.0-16.0); IMM GRAN# 0.05 X1000 (0.0-0.04); IMM GRAN% 1.4 % (0.0-0.5); LYMPH# 1.63 X1000 (1.2-3.4); LYMPH% 45.9 % (20.5-51.1); MCH 38.6 PG (27-31); MCHC 33.5 g/dL (33-37); MCV 115.2 FL (81-99); MONO# 0.54 X1000 (0.11-0.59); MONO% 15.2 % (1.7-9.3); MPV 10.5 FL (7.4-10.4); NEUT# 1.32 X1000 (1.4-6.5); NEUT% 37.2 % (42.2-75.2); PLT 170 X1000 (130-400); WBC 3.55 X1000 (4.8-10.8)
[2018-11-09 06:34] LABS: CALCIUM 8.4 mg/dL (8.8-10.2); CREATININE 0.9 mg/dL (0.5-0.9); POTASSIUM 4.4 mmol/L (3.5-5.1)
[2018-11-09 06:39] LABS: EOS 4 % (1-10); LYMPHS 32 % (21-51); MONO 22 % (1-9); SEGS 42 % (42-75)
[2018-11-09] MEDS ORDERED: LOVENOX SUBQ SCH (07:45)
[2018-11-09] MEDS: LANOXIN PO SCH (08:08)
[2018-11-09] MEDS: ZOCOR PO SCH (08:08)
[2018-11-09] MEDS: DITROPAN PO SCH (08:08)
[2018-11-09] MEDS: MIRALAX PO SCH (08:08)
[2018-11-09] MEDS: FOLIC ACID PO SCH (08:08)
[2018-11-09 11:50] VITALS: BP 125/61
[2018-11-09] MEDS: LEVAQUIN 500 MG/D5W 500 MG/100 ML IVPB IV SCH (12:42)
[2018-11-09] MEDS ORDERED: COUMADIN PO SCH (21:00)
--- NOTE | 2018-11-10 04:01 | HEMO/ONC PROGRESS NOTE ---
DATE: 11/09/2018 SUBJECTIVE: Ms. Huizar is sitting up in her hospital chair, in no acute distress. She has a family member inside the room. OBJECTIVE: Vital Signs: Temperature 98.6 degrees, heart rate 100, respirations 16, blood pressure 125/61, O2 saturation 93% on room air. Laboratory: White blood cells 2.55, hemoglobin 8.1, hematocrit 24.2, platelet count 170,000. Sodium 144, potassium 4.4, chloride 101, CO2 33, BUN 24, creatinine 0.9, glucose 99. Physical Examination: CV: Irregularly irregular rhythm noted. Respiratory: Chest is clear with no rhonchi, rales, or wheezing noted. Gastrointestinal: Abdomen is soft, with positive bowel sounds. Musculoskeletal: Some pedal edema bilaterally. ASSESSMENT AND PLAN: 1. Pancytopenia. The patient's final bone marrow biopsy returned. 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 It appears that her pancytopenia was secondary to Hydrea effect as well as acute illness. Her counts are improving and from our standpoint, she can be discharged home. She is having home health and will likely check a CBC in a couple weeks and have her return to our office in about 4 weeks. The patient will need to hold off on Hydrea until she follows up with us in the office. 2. Polycythemia vera. The patient's counts are now low. She does not require any treatment currently. We will follow up on her labs and then make further treatment decisions when she is an outpatient. 3. Acute hypoxic respiratory failure due to pneumonia. She is going to continue with levofloxacin. She will follow up with her primary care physician. 4. Chronic atrial fibrillation. They have been holding her Coumadin due to her low platelet count. Her platelet count has now recovered. Further management by the primary team. 5. Disposition. It appears that the patient is going to go home with home health as well as around the clock sitters. Again, we will follow up with the patient in 2 weeks with repeat labs and then in 4 weeks with repeat assessment. Dictated by DOMINICK Dubois for Katlin Cowan MD cc: Katlin Cowan MD I have seen and examined the patient and the above note reflects my history, physical , and assessment and plan. Katlin RUBY
[2018-11-16 11:16] LABS: TEST NAME CHROM ANALYSIS BM
--- NOTE | 2018-12-08 22:21 | DISCHARGE SUMMARY ---
ADMISSION DATE: 10/25/2018 DISCHARGE DATE: 11/09/2018 DISCHARGE DIAGNOSES: 1. 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 2. Chronic atrial fibrillation, on Coumadin. 3. Acute hypoxic respiratory failure because of pneumonia and bilateral pleural effusions. 4. History of essential hypertension. 5. Hyperlipidemia. 6. Overactive bladder. 7. Chronic pain. 8. Constipation. 9. Hypophosphatemia. 10. Polycythemia vera. CONSULTATIONS DURING HOSPITALIZATION: Hematology/Oncology, Dr. Katlin Cowan. DISCHARGE MEDICATIONS: Gabapentin 300 mg at nighttime, melatonin 5 mg at nighttime, tramadol 50 mg at nighttime, warfarin 30 mg at nighttime, digoxin 125 mcg daily, folic acid 1 mg daily, oxybutynin 5 mg daily, MiraLAX 17 g b.i.d. p.r.n., simvastatin 20 mg at nighttime, carvedilol 3.125 mg b.i.d., furosemide 20 mg daily, senna 2 tablets daily, spironolactone 12.5 mg p.o. daily. VITALS AT THE TIME OF DISCHARGE: Temperature of 98.3 degrees, pulse 100 per minute, respiratory rate 16, blood pressure 125/61, saturating 93% on room air. PHYSICAL EXAMINATION: General: At the time of discharge, the patient did not appear in any acute distress. HEENT: Oral cavity was moist. Lungs: Air entry bilaterally equal. No wheeze or rhonchi. Bilateral infrascapular crackles, which had significantly improved than the day prior to discharge, and also improving after cough. Extremities: No lower extremity edema. Neurologic: Alert and oriented x3. MICROBIOLOGICAL DATA DURING HOSPITAL ADMISSION: Blood culture no growth to date. IMAGING DURING HOSPITAL ADMISSION: Abdominal x-ray on October 25 had suggested no acute process. Chest x-ray on October 27 had suggested old fracture deformity of anterior left 7th rib, without any other rib lesion. Chest CT on October 28 had suggested a mild increase in the size of the small bilateral pleural effusion, stable cardiomegaly, mild increase in mediastinal adenopathy, and development of patchy tiny infiltrate. V/Q scan on November 02 had suggested negative exam for pulmonary embolism. Chest x-ray on November 02 had suggested trace bilateral pleural effusions. HOSPITAL COURSE SUMMARY: Ms. Sol Huizar is an 88-year-old lady, who had a prior history of chronic atrial fibrillation on Coumadin therapy, and polycythemia vera, who used to get phlebotomies every 3 to 4 months. Came in with a 2-day history of right naris epistaxis. When labs were obtained, it was showing pancytopenia, with low white cell count, low hemoglobin, low hematocrit, and low platelet count. INR was supratherapeutic at 4.69. She only had complaints of fatigue and bruising of fingernail beds. However, it was going on for 2 years. She complained of 30 pounds weight loss in the last 2 months. She was admitted for further management, and she was managed for pancytopenia. HOSPITAL COURSE PROBLEM-AMADOR: As above. TIME SPENT: More than 30 minutes were spent in discharging this patient. All of her questions have been answered. cc: Kali aHm MD
== END 2018-11-09 14:35 | disposition home health service (06) | DRG 808 ==
LOC: ED 10:50 → EDIPHOLD 17:00 → SUATTDRO 17:00 → 3S 22:29 → 4N 10-26 18:08
PROVIDERS: ATTEND Internal Medicine
CPT/HCPCS: 36415; 36430; 71020; 71046; 71101; 71250; 74022; 78582; 80048; 80053; 80069; 80162; 81001; 82550; 82607; 82728; 82746; 82948; 83010; 83540; 83550; 83605; 83615; 83735; 84100; 84484; 85014; 85018; 85025; 85027; 85045; 85379; 85384; 85610; 85730; 85999; 86850; 86900; 86901; 86920; 87040; 88184; 88185; 88305; 88311; 88313; 93005; 93010; 94761; 94799; 96365; 96375; 97110; 97116; 97162; 97530; 99285; 99291; A9270; A9539; A9540; J1160; J1650; J1940; J1956; J2405; J3430; J7030; P9016; P9035; XXXXX

== ENCOUNTER 2018-11-25 21:16 | Inpatient (IN) ==
[2018-11-25] MEDS ORDERED: LABETALOL IV ONE (23:26)
[2018-11-25] MEDS ORDERED: LANOXIN IV ONE (23:27)
[2018-11-25] MEDS ORDERED: LASIX IV ONE (23:29)
[2018-11-25 23:32] LABS: BASO# 0.06 X1000 (0.0-0.2); BASO% 0.4 % (0.0-0.8); EOS# 0.58 X1000 (0.0-0.7); EOS% 4.2 % (0.0-10.0); HEMATOCRIT 34.3 % (37.0-47.0); HEMOGLOBIN 10.8 g/dL (12.0-16.0); IMM GRAN# 0.05 X1000 (0.0-0.04); IMM GRAN% 0.4 % (0.0-0.5); LYMPH# 1.36 X1000 (1.2-3.4); LYMPH% 9.7 % (20.5-51.1); MCH 34.1 PG (27-31); MCHC 31.5 g/dL (33-37); MCV 108.2 FL (81-99); MONO# 1.47 X1000 (0.11-0.59); MONO% 10.5 % (1.7-9.3); MPV 9.6 FL (7.4-10.4); NEUT# 10.44 X1000 (1.4-6.5); NEUT% 74.8 % (42.2-75.2); PLT 572 X1000 (130-400); RBC 3.17 XMIL (4.2-5.4); RDW 22.2 % (11.5-14.5); WBC 13.96 X1000 (4.8-10.8)
--- NOTE | 2018-11-25 23:35 | PROVIDER DOCUMENTATION ---
HPI-Respiratory General - General Chief Complaint: Shortness of Breath Stated Complaint: SOB Time Seen by Provider: 11/25/18 22:50 Allergies/Adverse Reactions: Patient Allergies Allergy/AdvReac Type Severity Reaction Status Date / Time Penicillins Allergy Intermediate RASH Verified 11/25/18 23:29 Home Medications: Home Medication List Medication Instructions Recorded Confirmed Last Taken Type SIMVAstatin [Zocor] 20 mg PO HS 10/19/13 11/25/18 11/25/18 History Gabapentin 300 mg PO QHS 12/21/16 11/25/18 11/25/18 History Oxybutynin [Ditropan] 5 mg PO DAILY 12/21/16 11/25/18 11/25/18 History Warfarin [Coumadin] 3 mg PO QHS 12/21/16 11/25/18 11/25/18 History Melatonin 5 mg PO QHS 09/29/17 11/25/18 11/25/18 History Tramadol [Ultram] 50 mg PO QHS 03/25/18 11/25/18 11/25/18 History Furosemide [Lasix] 20 mg PO DAILY #30 tab 11/09/18 11/25/18 11/25/18 Rx Digoxin 0.5 tab PO DAILY 11/25/18 11/25/18 11/25/18 History Folic Acid 1 mg PO DAILY 11/25/18 11/25/18 11/25/18 History Polyethylene Glycol 3350 [Miralax] 17 gm PO BID PRN PRN 11/25/18 11/25/18 History - History of Present Illness-Resp Nature of Presenting Problem: Sol Huizar is a 88 y.o. female with Hx of A. fib, CHF present to the ED due to SOB since the morning. she denies cough, wheezing or chest pain. Patient also c/o RUQ pain and black stool today. she report Hx of blood in stoo. she deneis NSAIDs or steroid. Review of Systems - Adult - REVIEW OF SYSTEMS - ADULT Constitutional: reports: no symptoms reported Eyes: reports: no symptoms reported Cardiovascular: reports: no symptoms reported Respiratory: reports: shortness of breath. denies: cough Gastrointestinal: reports: see HPI Past History - Adult - PAST MEDICAL HISTORY-ADULT Review of Records: reports: Old Records Reviewed, Nursing Assessment Review, Medications Reviewed, Social history reviewed & non-contributory. Major Childhood Illnesses: reports: denies history Cardiovascular: reports: A-Fib, HTN, hyperlipidemia Respiratory: reports: denies history Gastrointestinal: reports: denies history Obstetrical/Gynecological: reports: denies history Genitourinary: reports: denies history Musculoskeletal: reports: arthritis, spinal fracture Neurological: reports: denies history Endocrine/Immune: reports: denies history Other Conditions: reports: denies history - PRIOR SURGERIES/PROCEDURES Surgical/Procedure History: reports: cholecystectomy, orthopedic (extremity) ( left wrist), other (Bladder Tack) - PRIOR HOSPITALIZATIONS Prior Hospitalizations: reports: none - IMMUNIZATION STATUS Childhood Immunizations: See Nurse Assessment Flu Vaccine: See Nurse Assessment - FAMILY HISTORY Family History: reviewed, not pertinent Physical Exam-General - CONSTITUTIONAL General Appearance: other (sitting in bed slightly tachypneic) - EYES Eyes: PERRL/EOMI - RESPIRATORY Respiratory: lungs clear, normal breath sounds. negative: crackles, rales, rhonchi - CARDIOVASCULAR Cardiovascular: no murmur, tachycardia - GASTROINTESTINAL (ABDOMEN) Abdominal Exam: normal bowel sounds, guarding, tenderness (RUQ). negative: rebound - MUSCULOSKELETAL Extremity: no pedal edema - SKIN Integumentary: normal color, normal turgor - NEUROLOGIC Neurologic: grossly normal Progress - PLAN OF CARE/RESULTS Progress/Plan/Lab Results: Vital Signs - 8 hr 11/25/18 21:45 11/25/18 23:22 11/26/18 00:05 Temperature 98.8 F Pulse Rate 117 H 136 H 99 H Respiratory Rate 17 29 H 24 Blood Pressure 155/102 170/96 134/61 O2 Sat by Pulse Oximetry 94 L 95 96 11/26/18 01:27 Temperature Pulse Rate 95 H Respiratory Rate Blood Pressure O2 Sat by Pulse Oximetry Laboratory Results - last 24 hr 11/25/18 11/25/18 11/25/18 22:50 22:50 22:50 WBC 13.96 H RBC 3.17 L Hgb 10.8 L Hct 34.3 L MCV 108.2 H MCH 34.1 H MCHC 31.5 L RDW Std Deviation 22.2 H Plt Count 572 H MPV 9.6 Immature Gran % (Auto) 0.4 Neut % (Auto) 74.8 Lymph % (Auto) 9.7 L [place] % (Auto) 10.5 H Eos % (Auto) 4.2 Baso % (Auto) 0.4 Immature Gran # (Auto) 0.05 H Neut # (Auto) 10.44 H Lymph # (Auto) 1.36 [place] # (Auto) 1.47 H Eos # (Auto) 0.58 Baso # (Auto) 0.06 Sodium 141 Potassium 4.1 Chloride 101 Carbon Dioxide 24 L Anion Gap 16 BUN 14 Creatinine 1.0 H Estimated GFR/1.73 m2 53 BUN/Creatinine Ratio 14 Glucose 122 H Calculated Osmolality 283 Calcium 8.7 L Troponin T 0.019 Gmf-H-Qpjehtgsnua Pept 11/25/18 22:50 WBC RBC Hgb Hct MCV MCH MCHC RDW Std Deviation Plt Count MPV Immature Gran % (Auto) Neut % (Auto) Lymph % (Auto) [place] % (Auto) Eos % (Auto) Baso % (Auto) Immature Gran # (Auto) Neut # (Auto) Lymph # (Auto) [place] # (Auto) Eos # (Auto) Baso # (Auto) Sodium Potassium Chloride Carbon Dioxide Anion Gap BUN Creatinine Estimated GFR/1.73 m2 BUN/Creatinine Ratio Glucose Calculated Osmolality Calcium Troponin T Ugl-C-Wipjgeuinpt Pept 8130 H Orders Category Date Time Status Oscar Cath Insertion ORDERED Care 11/26/18 01:15 Active CHEST-2 VIEWS [RAD] Stat Exams 11/25/18 22:30 Taken BMP [BASIC METABOLIC PANEL] [CHEM] Stat Lab 11/25/18 22:50 Completed BNP [PRO B-NATRIURETIC PEPTIDE] Stat Lab 11/25/18 22:50 Completed CBC WITH ELECTRONIC DIFF [HEME] Stat Lab 11/25/18 22:50 Completed OCCULT BLOOD AMBULATORY Stat Lab 11/25/18 23:16 Ordered PROTIME WITH INR [COAG] Stat Lab 11/26/18 01:25 Ordered TROPONIN T Stat Lab 11/25/18 22:50 Completed URINALYSIS W/POSS RFLX CULT [URINALYSIS] Stat Lab 11/26/18 00:00 Uncollected URINALYSIS [URINALYSIS] Stat Lab 11/26/18 01:14 Uncollected CefTRIAXONE [Rocephin] 1 gm Med 11/25/18 23:59 Discontinued 0.9% Sodium Chloride Inj [Ns] 50 ml IV NOW Digoxin [Lanoxin] Med 11/25/18 23:27 Discontinued 125 microgm IV NOW ONE Digoxin [Lanoxin] Med 11/26/18 00:57 Discontinued 125 microgm IV NOW ONE Furosemide [Lasix] Med 11/25/18 23:29 Discontinued 20 mg IV NOW ONE Furosemide [Lasix] Med 11/26/18 01:15 Once 20 mg IV NOW ONE Labetalol Med 11/25/18 23:26 Discontinued 20 mg IV NOW ONE EKG [EKG] Stat Ther 11/25/18 22:30 Ordered Transfer/Admit Order [TRANSFER] Routine Transfer 11/26/18 01:08 Ordered Patient care, assessment and plan discussed with the attending physician Dr. Francisco horne and he agree with the plan as documented. I assessed the patient multiple times, her HR improved after 1 dose Labetalol. her SOB improved after the lasix. Result Diagrams: 11/25/18 22:50 11/25/18 22:50 - CONSULTS/PCP/HOSPITALIST Notification #1 *Consult/PCP/Hospitalist*: Dr. Bustillos Time Discussed: 00:46 Consult Disposition: Admit (Accepted. Patient Hx, exam and Dx discussed with Dr. Bustillos.) Departure - Departure Date of Disposition Decision: 11/26/18 Time of Disposition Decision: 00:44 DIAGNOSIS: Atrial fibrillation with rapid ventricular response, RUQ pain, Melena CHF exacerbation Qualifiers: Heart failure type: unspecified Qualified Code(s): I50.9 - Heart failure, unspecified Disposition: ADMITTED INPATIENT 09 Certified Medical Emergency: Emergent Condition: Serious Referrals and Follow-Ups: Carlos Loja MD [Primary Care Provider] - - Critical Care Note This patient required my direct & personal management of CC.: No Attestation - Physician/ ALAINA Attestation Patient care was provided by Advanced Practice Provider:: No The physician spent face to face time with patient:: Yes Advanced Practice Provider documentation review:: Supervising physician onsite and consulted in the evaluation and care of this patient. The physician did have a face to face encounter with the patient.
[2018-11-25 23:40] LABS: CALCIUM 8.7 mg/dL (8.8-10.2); POTASSIUM 4.1 mmol/L (3.5-5.1)
[2018-11-25] MEDS ORDERED: ROCEPHIN 1 GM in NS 50 ML IV ONE (23:59)
[2018-11-26] MEDS ORDERED: LANOXIN IV ONE (00:57)
[2018-11-26] MEDS ORDERED: LASIX IV ONE (01:15)
[2018-11-26 01:42] LABS: INR 3.22; PROTIME 35.2 Seconds (11.0-16.0)
[2018-11-26 02:00] LABS: URINE SOURCE CATH
[2018-11-26 02:02] LABS: BILIRUBIN URINE NEGATIVE (NEGATIVE); BLOOD URINE NEGATIVE (NEGATIVE); COLOR YELLOW; GLUCOSE URINE NEGATIVE (NEGATIVE); KETONE URINE NEGATIVE (NEGATIVE); LEUKOCYTES URINE NEGATIVE (NEGATIVE); NITRITE URINE NEGATIVE (NEGATIVE); PH URINE 5.5; PROTEIN URINE TRACE mg/dL (NEGATIVE); SP GRAVITY URINE 1.004; TURBIDITY URINE CLEAR (CLEAR); UROBILINOGEN URINE NORMAL (NORMAL)
[2018-11-26 02:03] LABS: UR EPITHELIAL CELLS <10 /HPF (<10); URINE BACTERIA NEGATIVE /HPF; URINE RBC <10 /HPF (<10); URINE WBC <10 /HPF (<10)
[2018-11-26] MEDS ORDERED: ZOFRAN IV PRN (02:25)
[2018-11-26] MEDS ORDERED: DUONEB (A & A) INH PRN (02:25)
[2018-11-26] MEDS: PERICOLACE PO SCH ×3 (02:55→20:20)
[2018-11-26] MEDS: COREG PO SCH ×3 (03:20→20:21)
[2018-11-26] MEDS: LASIX IV SCH ×2 (03:20→10:31)
[2018-11-26 05:05] LABS: RETIC% 5.36 % (0.8-2.1); RETIC-HE 27.4 PG (28.2-36.6)
[2018-11-26 05:08] LABS: INR 3.84
[2018-11-26 05:15] LABS: DIGOXIN 1.3 ng/mL (0.9-2.0)
[2018-11-26 05:17] LABS: PROTIME 40.4 Seconds (11.0-16.0)
[2018-11-26 05:21] LABS: CALCIUM 8.1 mg/dL (8.8-10.2); CREATININE 0.9 mg/dL (0.5-0.9); POTASSIUM 3.5 mmol/L (3.5-5.1)
[2018-11-26 05:36] LABS: FERRITIN 470 ng/mL (13-150)
--- NOTE | 2018-11-26 07:51 | HISTORY AND PHYSICAL ---
Patient of Dr. Loja. REASON FOR ADMISSION: Three day history of shortness of breath. Ms. Sol Huizar is an 88-year-old woman with past medical history of chronic atrial fibrillation, systolic heart failure, hypertensive heart disease, hyperlipidemia, chronic anemia, mild type 2 diabetes and osteoarthritis, CKD stage 2. She comes in today complaining of acute on chronic dyspnea. This acute episode started about 3 days ago to the point where prior to this, she could walk 20 yards before she became short of breath. Now she can barely go 5-10 yards. She denies any leg swelling but does admit to frequent episodes of PND over the last couple of days and orthopnea of the same duration. She also complains of easy satiety. She denies any palpitations or chest pain or any additional anginal type symptoms. She describes having a dry cough for the last 3 days but no fever, no chills. When the patient came to the ER, her heart rate was in the 140s. She was given labetalol and digoxin. Heart rate is now in the 90s and low 100s and she says she feels slightly better. She was also given some Lasix too. REVIEW OF SYSTEMS: Notable for chronic constipation and dry mouth. She denies any neurological complaints. No polyuria or polydipsia. No rash. Otherwise, 12 system review was done and positive findings per HPI. She also denies lightheadedness. Denies any bleeding from any orifice. ALLERGIES: Penicillins. HOME MEDICATIONS: 1. She takes Gabapentin 300 mg at bedtime. 2. Melatonin 5 mg at bedtime. 3. Tramadol 50 mg at bedtime. 4. Coumadin 3 mg at bedtime. 5. Digoxin 0.0625 mg daily. 6. Folic acid 1 mg daily. 7. Oxybutynin 5 mg daily. 8. MiraLAX 17 mg b.i.d. p.r.n. 9. Zocor 20 mg at bedtime. 10.Lasix 20 mg daily. SURGICAL HISTORY: 1. She has had right hip surgery with pinning. 2. Cholecystectomy. FAMILY HISTORY: Notable for several siblings with heart disease, none of them with diabetes or cancer. SOCIAL HISTORY: Lives at an assisted living care facility. Does not smoke, drink or use illicit drugs. LAB WORK: White count is 14,000, H and H 10 and 34, platelets 562,000 with an MCV of 108 and RDW of 22. Differential is borderline left shift. BUN is 14, creatinine 1.0, glucose is 112. Troponin 0.019 and ProBNP is 8,000. Chest film shows increased vascular markings, possible blunting of the left costophrenic angle. EKG was ordered but has not been done. PHYSICAL EXAMINATION: VITAL SIGNS: Blood pressure is 134/60, heart rate 99, respirations 24, temperature is 98.8 degrees. She is on 3 L nasal cannula. O2 sat is 96%. GENERAL: She is a frail, elderly woman who is in mild respiratory distress. She is A and O x3. She has normal mood and affect. HEENT: Head is normocephalic and atraumatic. Eyes: Pupils are equal and reactive to light and EOMI. She is anicteric but pale. ENT and oropharyngeal exam is notable for severe xerostomia. No central cyanosis. NECK: Supple. There is mild JVD but positive hepatojugular reflux. No bruits or thyromegaly. CHEST: Bibasilar crepitations are noted with a few expiratory wheezes. CARDIOVASCULAR: First and second heart sounds are heard. No gallops or rubs. Rhythm is irregular. ABDOMEN: Protuberant and soft with mild right upper quadrant tenderness. No rebound or guarding. Bowel sounds are surprisingly normal. RECTAL: Deferred at this time. EXTREMITIES: Trace lower extremity edema in the lower extremities. Pulses distally have good volume, i.e. 1+, irregular but symmetrical. No clubbing or peripheral cyanosis. NEUROLOGICAL: No gross focal deficits. SKIN: Intact with no breakdown or lesions. MUSCULAR: Grossly normal. ASSESSMENT: 1. Acute systolic heart failure. 2. Hypertensive heart disease. 3. Atrial fibrillation with rapid ventricular rate. 4. Hyperlipidemia. 5. Macrocytic anemia. 6. Leukocytosis probably reactive. No overt evidence of infection. PLAN: We will aggressively diurese patient but because of her prior complaints of having electrolyte derangement, i.e. hyperkalemia, we will hold off on TIFFANI inhibitors for now. In the meantime, she will continue with Lasix, Aldactone and low dose beta blockers. We will do BMP q.12 for the first 24 hours. If things are stable, may consider adding on low dose ARB or TIFFANI inhibitor and monitor BMP accordingly. Chest films will be done within 24 hours to document resolution of edema. If the patient's edema improves but there is still evidence of residual infiltrates, may consider continuing Rocephin and Zithromax for presumptive pneumonia. The patient does not portray any symptoms suggestive of this by the way, so I have held the antibiotics for now. Educate patient on appropriate dietary intake so as not to have frequent or any exacerbations of CHF. Pro- time is still pending and this needs to be followed. Patient's dig level has been ordered and it is possible that she may require slightly higher doses of Digoxin with better rate control. Patient's last A1c was 6.3 and this may need to be followed and the information needs to be passed on to the patient that she may have early onset type 2 diabetes. Patient does complain of constipation and I believe this is secondary to oxybutynin and this will be held for now and laxatives will be prescribed. I read the patient's older records and she was on Hydroxyurea which may explain bone marrow failure issues from her last admission. It may also explain the macrocytic picture I am seeing also. Patient is also on amiodarone but it is not on her current list, ? bradycardia. This needs to be explored if she continues to have rapid ventricular rate. Echocardiogram will also be ordered and I will defer to primary team to decide if they want to consult Cardiology for further input. cc: MD Carlos Medina MD
--- NOTE | 2018-11-26 08:46 | Diag Imaging Result Doc PS360 ---
EXAM: CHEST-2 VIEWS INDICATION: sob TECHNIQUE: 2 views COMPARISON: 11/02/2018 FINDINGS: There is prominent central vasculature and prominent interstitial markings indicating pulmonary venous congestion and interstitial edema. There is suggestion of trace pleural effusions. There is stable mild cardiomegaly. IMPRESSION: Pulmonary edema and pulmonary venous congestion as described. Electronically signed by Raghu Naqvi 11/26/2018 8:44 AM
[2018-11-26] MEDS: LACTULOSE PO SCH (09:08)
[2018-11-26] MEDS: LANOXIN PO SCH (09:08)
[2018-11-26] MEDS: FOLIC ACID PO SCH (09:09)
[2018-11-26] MEDS: ALDACTONE PO SCH (09:12)
[2018-11-26 12:59] LABS: IRON SATURATION 17 %; TIBC 189 ug/dL; TOTAL IRON 33 ug/dL (49-151); UNBOUND IRON 156 ug/dL (112-346)
[2018-11-26] MEDS: VENOFER 200 MG in NS 100 ML IV SCH (13:20)
--- NOTE | 2018-11-26 14:30 | PROGRESS NOTE ---
DATE: 11/26/2018 SUBJECTIVE: This morning, Ms. Huizar reports to be doing fairly okay. Shortness of breath has significantly improved. OBJECTIVE: Her vitals show blood pressure is 114/55, pulse 63, respirations 15, temperature 97.6. General: Ms. Huizar is an 88-year-old female. She was in bed, no distress. Mucosa pink. Slightly dry. Anicteric and acyanotic. Neck is supple. Chest: Good air entry bilaterally. There are a few crackles posteriorly. Cardiovascular: Regular rate and rhythm. No murmurs, no rubs, no gallops. Abdomen is soft and nontender. Bowel sounds present. Extremities with no pedal edema. DATABASE MANAGEMENT SYSTEM SPECIALIST: The patient is awake, alert, and oriented. There is no focal neurological deficit. DIAGNOSTIC DATA: No laboratory data for this morning. CBC yesterday showed WBC of 13.95, hemoglobin of 10.8 with platelet count of 572. Chemistries reviewed and completely normal. Iron is 33 with percent saturation of 17. A chest x-ray did show pulmonary edema and pulmonary venous congestion as described. ASSESSMENT: 1. Acute hypoxemic respiratory failure secondary to pulmonary edema. 2. Pulmonary edema secondary to congestive heart failure. 3. Acute on chronic congestive heart failure, ejection fraction of 35% to 40%. 4. Relative iron deficiency anemia. We will get the patient on Venofer. 5. Macrocytosis. So far, B12 and folate are normal. We will check a TSH level. 6. History of paroxysmal atrial fibrillation. The patient is currently on Coumadin for DVT prophylaxis. PLAN: In general, I think Ms. Huziar seems to be doing a lot better. Her congestion symptoms in the lungs seem to be improving. She is still on gentle diuresis. Remarkably, she also refers to be fatigued and have pagophagia which I think is related to the underlying iron deficiency. We are going to give her some Venofer infusion and reevaluate her in the morning. We will also check a TSH to rule out any possible underlying hypothyroidism. cc: Blaine Sam MD
--- NOTE | 2018-11-26 15:36 | Diag Imaging Result Doc PS360 ---
EXAM: CHEST-2 VIEWS INDICATION: CHF TECHNIQUE: 3 views COMPARISON: 11/25/2018 FINDINGS: Pulmonary venous congestion and interstitial edema appears to have improved marginally during the interval. There is probably also a background of chronic interstitial thickening. No new consolidation is identified. Cardiac silhouette is stable. IMPRESSION: Suggestion of slight improvement of pulmonary venous congestion and interstitial edema. Electronically signed by Raghu Naqvi 11/26/2018 3:34 PM
[2018-11-26 16:23] LABS: CALCIUM 8.4 mg/dL (8.8-10.2); CREATININE 0.9 mg/dL (0.5-0.9); POTASSIUM 3.6 mmol/L (3.5-5.1)
[2018-11-26] MEDS: NEURONTIN PO SCH (20:20)
[2018-11-26] MEDS: MELATONIN PO SCH (20:21)
[2018-11-26] MEDS: COUMADIN PO SCH (20:21)
--- NOTE | 2018-11-26 23:50 | ECHO REPORT ---
ORDER DATE: 11/26/2018 INDICATIONS: CHF. FINDINGS: 1. Right atrium is mildly enlarged. 2. Mild tricuspid regurgitation. RV systolic pressure of 46. 3. Normal RV size and systolic function. 4. Mild pulmonic insufficiency. 5. Moderate and possibly severe left atrial enlargement. 6. There is heavy mitral annular calcification with mild to moderate mitral regurgitation. 7. The left ventricle appears to be normal in size with an end-diastolic dimension of 4 cm. Normal wall thicknesses with a posterior and interventricular septal wall thickness 1 cm each. There is reduced LV systolic function on the order of 35% with global hypokinesis. This appears to be similar to the study back in July 2017. 8. Aortic valve opens well. It is trileaflet. There is no evidence of stenosis or insufficiency. 9. Aorta appears normal in visualized segments. 10. There appears to be a small circumferential pericardial effusion with no evidence of tamponade- type physiology on this study. cc: MD David Daily MD
[2018-11-27] MEDS: LASIX IV SCH ×4 (00:26→21:54)
[2018-11-27] MEDS: TYLENOL PO PRN ×2 (03:29→13:51)
[2018-11-27 05:56] LABS: BASO# 0.06 X1000 (0.0-0.2); BASO% 0.7 % (0.0-0.8); EOS# 0.62 X1000 (0.0-0.7); EOS% 7.4 % (0.0-10.0); HEMATOCRIT 28.9 % (37.0-47.0); HEMOGLOBIN 8.9 g/dL (12.0-16.0); IMM GRAN# 0.04 X1000 (0.0-0.04); IMM GRAN% 0.5 % (0.0-0.5); LYMPH# 1.28 X1000 (1.2-3.4); LYMPH% 15.3 % (20.5-51.1); MCH 33.1 PG (27-31); MCHC 30.8 g/dL (33-37); MCV 107.4 FL (81-99); MONO# 0.96 X1000 (0.11-0.59); MONO% 11.5 % (1.7-9.3); MPV 9.8 FL (7.4-10.4); NEUT# 5.41 X1000 (1.4-6.5); NEUT% 64.6 % (42.2-75.2); PLT 399 X1000 (130-400); RBC 2.69 XMIL (4.2-5.4); RDW 21.1 % (11.5-14.5); WBC 8.37 X1000 (4.8-10.8)
[2018-11-27 06:06] LABS: AGAP 14; ALBUMIN 3.6 g/dL (3.5-5.0); BUN 17 mg/dL (8-22); CALCIUM 8.8 mg/dL (8.8-10.2); CHLORIDE 103 mmol/L (98-107); COSMO 291; CREATININE 0.8 mg/dL (0.5-0.9); ESTIMATED GFR > 60; GLUCOSE 108 mg/dL (70-104); MAGNESIUM 1.9 mg/dL (1.5-2.7); PHOSPHORUS 3.5 mg/dL (2.7-4.5); POTASSIUM 3.2 mmol/L (3.5-5.1); SODIUM 145 mmol/L (136-145); TCO2 28 mmol/L (25-35)
[2018-11-27] MEDS: LACTULOSE PO SCH (09:11)
[2018-11-27] MEDS: ALDACTONE PO SCH (09:11)
[2018-11-27] MEDS: COREG PO SCH ×2 (09:12→20:08)
[2018-11-27] MEDS: LANOXIN PO SCH (09:12)
[2018-11-27] MEDS: FOLIC ACID PO SCH (09:12)
[2018-11-27] MEDS: VENOFER 200 MG in NS 100 ML IV SCH (09:13)
[2018-11-27] MEDS: PERICOLACE PO SCH ×2 (09:35→20:09)
--- NOTE | 2018-11-27 13:07 | PROGRESS NOTE ---
DATE: 11/27/2018 SUBJECTIVE: This morning, Ms. Huizar refers to be doing a whole lot better. According to her, the shortness of breath is improving. She is not having any chest pain, no fever. OBJECTIVE: Vital signs: Blood pressure is 128/38, pulse is 73, respirations 18 , temperature 97.9 degrees. General: Ms. Huizar is an 88-year-old female. She is an extremely nice lady. She is in bed. She is not in any cardiopulmonary distress. HEENT: Mucosa is pink and moist. Anicteric. Acyanotic. Neck: Supple. Chest: Good air entry bilaterally. There are still some distant crackles posteriorly. Cardiovascular: Irregularly irregular, but rate controlled. Abdomen: Soft, nontender. Bowel sounds present. Extremities: No pedal edema. WHISKEY FILTERER: Patient is awake, alert, oriented. There is no focal neurological deficit. LABORATORY DATA: WBC is 8.37, hemoglobin is 8.9, platelet count of 399,000. Chemistry is also reviewed and is completely normal. CURRENT MEDICATIONS: 1. Carvedilol 12.125 b.i.d. 2. Digoxin 62.5 mcg daily. 3. Folic acid 1 mg daily. 4. Lasix 20 mg IV q.12. 5. Gabapentin 300 at bedtime. 6. Iron sucrose. 7. Lactulose. 8. Melatonin. 9. Aldactone 12.5 p.o. daily. 10. Coumadin 3 mg daily at night. 11. INR yesterday was 3.85. ASSESSMENT: 1. Acute hypoxemic respiratory failure secondary to pulmonary edema. The patient is currently doing fairly okay, saturating about 98% on only 3 L. We will continue to titrate this down until we have it completely off. A chest x-ray this morning shows slight improvement of the pulmonary venous congestion and interstitial edema. 2. Pulmonary edema, secondary to congestive heart failure. Chest x-ray shows improvement. 3. Acute on chronic congestive heart failure. Ejection fraction is 35% to 40% percent. This does not seem to have changed comparing to the studies done in July 2017. So it is fairly stable. 4. Macrocytosis with normal B12 and folate level. TSH is also normal. This could be myelodysplastic changes in the bone marrow, but the patient normally follows up with Oncology, so we will refer her to follow up with her doctors. 5. History of paroxysmal atrial fibrillation, currently rate controlled. We will continue with rate controlling medications as well as her Coumadin for stroke prophylaxis. 6. Remote history of polycythemia vera, currently asymptomatic and stable. Platelet count is within normal range. 7. Relative iron deficiency anemia. The patient is getting iron infusion. PLAN: So in general, I think Ms. Huizar seems to be fairly stable. Congestive symptoms have significantly improved. The patient is negative balance on fluids of , adequately diuresing well. We are going to discontinue the Oscar catheter today. We are going to encourage the patient to sit up in chair and get Physical Therapy to evaluate her today or tomorrow. I think Ms. Huizar is a potential discharge tomorrow if she continues to be hemodynamically stable and symptomatic improved. I have discussed this plan with her and her sitter, who was at the bedside at the time of the encounter. I did talk with her son over the phone yesterday and updated him about his mom' s clinical medical status. cc: Blaine Sam MD MTDD
[2018-11-27] MEDS: MELATONIN PO SCH (20:07)
[2018-11-27] MEDS: NEURONTIN PO SCH (20:08)
[2018-11-27] MEDS: COUMADIN PO SCH (20:08)
[2018-11-27] MEDS ORDERED: ULTRAM PO SCH (21:00)
[2018-11-28] MEDS: TYLENOL PO PRN (00:07)
[2018-11-28 05:56] LABS: CALCIUM 8.6 mg/dL (8.8-10.2); CREATININE 0.9 mg/dL (0.5-0.9); POTASSIUM 3.5 mmol/L (3.5-5.1)
[2018-11-28] MEDS ORDERED: ULTRAM PO PRN (06:14)
--- NOTE | 2018-11-28 07:03 | Diag Imaging Result Doc PS360 ---
EXAM: CHEST-PORTABLE 11/28/2018 HISTORY: dyspnea TECHNIQUE: AP portable at 0553 COMMENT: The inspiration is suboptimal. The possibility of atelectasis or pneumonia in the right lung upper lobe cannot be excluded. Otherwise considering degree of inspiration there has been no significant change. IMPRESSION: Questionable atelectasis versus pneumonia in the right upper lobe. Electronically signed by Bryant Cortez 11/28/2018 7:01 AM
--- NOTE | 2018-11-28 07:33 | EKG Report ---
Test Performed on : 11/25/2018 9:47:57 PM Test Reason : sob Blood Pressure : / mmHG Vent. Rate : 110 BPM Atrial Rate : 101 BPM P-R Int : 000 ms QRS Dur : 132 ms QT Int : 350 ms P-R-T Axes : 000 -33 198 degrees QTc Int : 473 ms Atrial fibrillation. with rapid ventricular response. Left axis deviation Nonspecific intraventricular block T wave abnormality, consider lateral ischemia Abnormal ECG When compared with ECG of 29-OCT-2018 06:39, No significant change was found Unconfirmed Result
[2018-11-28] MEDS: FOLIC ACID PO SCH (09:22)
[2018-11-28] MEDS: ALDACTONE PO SCH (09:22)
[2018-11-28] MEDS: PERICOLACE PO SCH (09:22)
[2018-11-28] MEDS: VENOFER 200 MG in NS 100 ML IV SCH (09:22)
[2018-11-28] MEDS: LACTULOSE PO SCH (09:22)
[2018-11-28] MEDS: COREG PO SCH (09:23)
[2018-11-28] MEDS: LANOXIN PO SCH (09:23)
[2018-11-28 11:55] VITALS: BP 140/56
--- NOTE | 2018-11-29 03:52 | DISCHARGE SUMMARY ---
ADMISSION DATE: 11/25/2018 DISCHARGE DATE: 11/28/2018 DISPOSITION: Home. FOLLOWUP: 1. With the patient's PCP, Dr. Loja. 2. Dr. Darvin Fallon. 3. Dr. Hunt. CONSULTATIONS DURING THIS ADMISSION: None. IMAGING STUDIES OF SIGNIFICANCE: A chest x-ray was done on presentation which showed pulmonary edema and venous congestion. Echocardiogram showed an ejection fraction of 35% with global hypokinesis which appeared to be similar to a study back in July 2017. ADMISSION DIAGNOSES: 1. Acute on systolic heart failure. 2. Hypertensive heart disease. 3. Atrial fibrillation with rapid ventricular response. 4. Microcytic anemia. 5. Leukocytosis. DIAGNOSES AT THE TIME OF DISCHARGE: 1. Acute hypoxemic respiratory failure secondary to pulmonary edema. The patient was started on nasal cannula oxygenation. He is currently doing well on room air. 2. Pulmonary edema secondary to congestive heart failure, improved. 3. Acute on chronic congestive heart failure (systolic failure) with ejection fraction of 35 to 40 percent. Recent echocardiogram shows fairly the same ejection fraction in 2017. Patient will follow up with her client renewal specialist, Dr. Darvin Fallon. 4. Macrocytosis with normal B12 and folate level. The patient will follow up with Dr. Cowan as her oncologist. 5. Paroxysmal atrial fibrillation with rapid ventricular response on presentation, currently rate controlled. Patient is on rate control medications as well as Coumadin for stroke prophylaxis. 6. Relative iron deficiency anemia. Patient was infused with Venofer and she is supposed to follow up with her oncologist. 7. 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 The patient is currently asymptomatic. Platelet count is within normal range. DISCHARGE MEDICATIONS: 1. Simvastatin 20 mg at bedtime. 2. Oxybutynin 5 mg p.o. daily. 3. Coumadin 3 mg p.o. at bedtime. 4. Gabapentin 300 p.o. at bedtime. 5. Melatonin 5 mg p.o. at bedtime. 6. Tramadol 50 mg p.o. at bedtime. 7. Furosemide 20 mg p.o. daily. 8. Digoxin 0.5 p.o. daily. 9. Folic acid 1 mg p.o. daily. 10. Carvedilol 3.125 p.o. b.i.d. 11. Carmina-Colace. 12. Aldactone 12.5 p.o. daily. PRESENTING COMPLAIN: Difficulty breathing. HISTORY OF PRESENTING COMPLAINT: Ms. Huizar is an 88-year-old, female with a history of congestive heart failure, atrial fibrillation, hypertensive heart disease, chronic anemia, and a remote history of JAK2 positive polycythemia vera. The patient came to the emergency department because of progressively worsening shortness of breath. Upon presenting, she was evaluated and was found to have congestive signs and symptoms. A chest x-ray did reveal pulmonary congestion and proBNP was also elevated. The patient was found also to be in atrial fibrillation with RVR. She was subsequently admitted for congestive heart failure exacerbation. HOSPITAL COURSE: Ms. Huizar responded very well with diuretic therapy and cardiac medications. An echocardiogram was done which showed an ejection fraction of 35 to 40 percent , which was pretty much the same as the one she had in 2017. During the hospital course, Ms. Huizar's congestive symptoms improved. She was also found to have relative iron deficiency and was transfused with Venofer. Ms. Huizar's heart rate got better controlled on the digoxin and beta brionna. She was able to participate with physical therapy. She was able to get up and sit up at the bedside in a chair. She feels a lot stronger today and she is clinically stable for discharge. All the congestive symptoms have improved. Her vital signs this morning, blood pressure is 122/46, pulse is 81, respirations are 17, temperature is 97.3 degrees. The patient's physical exam is completely unremarkable. She is therefore going to be discharged in stable condition. She is supposed to follow up with her client renewal specialist, her oncologist, and her primary care doctor. All the discharge instructions have been discussed with her and she voiced understanding. During the hospital course, I was able to reach out to her son, Mr. Gale, and I did notify him and updated him about his mom's medical condition. Time spent for discharge is 35 minutes. cc: MD Carlos Omalley MD Peter Johnson, MD Dr. Shah MTDD
== END 2018-11-28 14:00 | disposition home health service (06) | DRG 291 ==
LOC: SUPCPDRO → ED 21:16 → SUATTDRO 11-26 01:47 → 3S 11-26 01:47
PROVIDERS: ATTEND Internal Medicine
CPT/HCPCS: 51702; 71010; 71020; 71045; 71046; 80048; 80069; 80162; 81001; 82270; 82607; 82728; 82746; 83540; 83550; 83735; 83880; 84443; 84484; 85025; 85045; 85610; 93005; 93306; 94761; 96365; 96375; 96376; 97116; 97162; 99285; A9270; J0696; J1160; J1756; J1940

== ENCOUNTER 2018-12-26 09:57 | Inpatient (IN) ==
--- NOTE | 2018-12-26 11:00 | Diag Imaging Result Doc PS360 ---
EXAM: CHEST-PORTABLE HISTORY: afib rvr TECHNIQUE: Chest single view COMPARISON: 11/28/2018 FINDINGS: Improved inspiratory effort. The heart remains enlarged. Improved infiltrates. Only mild increased interstitial markings throughout the lungs on the current exam. No pleural effusions identified. There are scattered granuloma. IMPRESSION: Interval improvement compared to the prior study. Electronically signed by Alec Fierro 12/26/2018 10:58 AM
[2018-12-26] MEDS ORDERED: CARDIZEM 100 MG in NS 80 ML IV SCH (11:25)
--- NOTE | 2018-12-26 11:46 | EKG Report ---
Test Performed on : 12/26/2018 10:59:05 AM Test Reason : afib rvr Blood Pressure : / mmHG Vent. Rate : 095 BPM Atrial Rate : 220 BPM P-R Int : 000 ms QRS Dur : 138 ms QT Int : 372 ms P-R-T Axes : 000 065 267 degrees QTc Int : 467 ms Atrial fibrillation. with premature ventricular or aberrantly conducted complexes. Nonspecific intraventricular block Possible Anterolateral infarct , age undetermined T wave abnormality, consider inferior ischemia Abnormal ECG When compared with ECG of 25-NOV-2018 21:47, (Unconfirmed) QRS axis shifted right Borderline criteria for Anterolateral infarct are now present T wave inversion now evident in Inferior leads T wave inversion no longer evident in Lateral leads Confirmed by Mary MADDOX, Nishant Paul ([id number]) on 12/26/2018 3:29:49 PM
[2018-12-26 11:54] LABS: INR 1.74; PROTIME 21.7 Seconds (11.0-16.0)
[2018-12-26 11:57] LABS: BASO# 0.02 X1000 (0.0-0.2); BASO% 0.2 % (0.0-0.8); EOS# 0.13 X1000 (0.0-0.7); EOS% 1.4 % (0.0-10.0); HEMATOCRIT 40.4 % (37.0-47.0); HEMOGLOBIN 12.6 g/dL (12.0-16.0); IMM GRAN# 0.02 X1000 (0.0-0.04); IMM GRAN% 0.2 % (0.0-0.5); LYMPH# 0.89 X1000 (1.2-3.4); LYMPH% 9.7 % (20.5-51.1); MCH 30.4 PG (27-31); MCHC 31.2 g/dL (33-37); MCV 97.3 FL (81-99); MONO# 0.66 X1000 (0.11-0.59); MONO% 7.2 % (1.7-9.3); MPV 9.5 FL (7.4-10.4); NEUT# 7.41 X1000 (1.4-6.5); NEUT% 81.3 % (42.2-75.2); PLT 266 X1000 (130-400); RBC 4.15 XMIL (4.2-5.4); RDW 15.6 % (11.5-14.5); WBC 9.13 X1000 (4.8-10.8)
[2018-12-26 12:16] LABS: AGAP 14; ALB/GLOB RATIO 2.2; ALBUMIN 4.7 g/dL (3.5-5.0); ALKALINE PHOSPHATASE 69 U/L (32-104); BUN 14 mg/dL (8-22); CALCIUM 9.7 mg/dL (8.8-10.2); CHLORIDE 100 mmol/L (98-107); COSMO 286; CREATININE 0.8 mg/dL (0.5-0.9); ESTIMATED GFR > 60; GLUCOSE 137 mg/dL (70-104); GOT 23 U/L (10-30); GPT 13 U/L (10-36); MAGNESIUM 1.9 mg/dL (1.5-2.7); POTASSIUM 3.5 mmol/L (3.5-5.1); SODIUM 142 mmol/L (136-145); TCO2 28 mmol/L (25-35); TOTAL BILIRUBIN 1.19 mg/dL (0.20-1.00); TOTAL PROTEIN 6.8 g/dL (6.3-8.3)
[2018-12-26] MEDS ORDERED: LASIX IV ONE (12:32)
--- NOTE | 2018-12-26 14:15 | Diag Imaging Result Doc PS360 ---
CT HEAD W/O CONTRAST - 12/26/2018 INDICATION: worsening mental status COMPARISON: 09/29/2017 FINDINGS: There is stable moderate cerebral atrophy. There is worsening in the advanced periventricular white matter chronic microvascular disease. No intracranial mass or hemorrhage. The skull is intact. Stable chronic sinusitis of the right sphenoid sinus. Other sinuses are clear. IMPRESSION: Worsening cerebral white matter chronic microvascular disease. This exam was performed using automated exposure control, adjustment of mA or kV according to patient size, and/or use of iterative reconstruction technique Electronically signed by Leonardo Clarke 12/26/2018 2:13 PM
--- NOTE | 2018-12-26 16:16 | HISTORY AND PHYSICAL ---
BUTTONHOLER: DR. Fallon CHIEF COMPLAINT: Atrial fibrillation with RVR. HISTORY OF PRESENT ILLNESS: Ms. Huizar is an 88-year-old female who has recently been discharged from our service with diagnosis of acute on chronic systolic heart failure, pneumonia, pancytopenia and chronic atrial fibrillation. She is a poor historian at this time and cannot give much in the way of history; however, her granddaughter is at the bedside. The patient went to Dr. Fallon's office today for followup after her last discharge, and per report, she has been with increasing confusion, was complaining of some chest pain and mild lower extremity edema. Her heart rate was noted to be in the 130s in Dr. Fallon's office, so he felt she needed direct admission. Currently she is somewhat confused, but she denies any chest pain at this time. States that she has shortness of breath with exertion and some mild lower extremity edema. She denies any fever or chills. No cough. No dysuria. No other acute symptoms. The granddaughter at the bedside does report that her confusion has increased significantly since . Laboratory data done today does reveal that her INR is subtherapeutic, and she is on Coumadin. So given the confusion, we are going to check a head CT. She has been started on a Cardizem drip and overall is hemodynamically stable. She will be treated for further treatment and evaluation. PAST MEDICAL HISTORY: 1. Severe systolic heart failure, EF of 35% per echocardiogram done last month. 2. Chronic atrial fibrillation. 3. Severe MR. 4. Hypertension. 5. Diabetes mellitus. Hemoglobin A1c 6.3% done last month. 6. History of recent pancytopenia, thought to be hydroxyurea induced. 7. Hyperlipidemia. 8. History of polycythemia vera. 9. Question of dementia. PAST SURGICAL HISTORY: She has had a right hip arthroplasty as well as cholecystectomy. SOCIAL HISTORY: She lives in assisted living, is . Denies tobacco, alcohol or drug use. Strong family support. FAMILY HISTORY: Significant for heart disease. REVIEW OF SYSTEMS: A 10-point review of systems was obtained and found to be negative with the exception of the HPI. ALLERGIES: Penicillin. HOME MEDICATIONS: Digoxin 0.625 mg daily, folic acid 1 mg daily, Neurontin 300 mg p.o. at bedtime, melatonin 5 mg at bedtime, Ditropan 5 mg p.o. daily, Zocor 20 mg p.o. at bedtime, tramadol 50 mg p.o. at bedtime, Coumadin 3 mg p.o. at bedtime, Coreg 3.125 mg p.o. b.i.d., Lasix 20 mg daily, Senokot 2 p.o. b.i.d., Aldactone 12.5 mg p.o. daily. PHYSICAL EXAMINATION: VITAL SIGNS: Blood pressure is 164/119, heart rate is 101, respiratory rate is 18, O2 saturation is 97% on room air. Temperature is 97.7. GENERAL: An elderly and frail appearing 88-year-old female lying in the hospital bed in no acute distress. NEUROLOGICAL: The patient is somewhat disoriented but follows commands without focal deficits. HEENT: Head is atraumatic and normocephalic. Pupils are equal, round and reactive to light. Oral mucosa is moist. NECK: Trachea is midline. There is no JVD. CHEST: Diminished bilaterally with very faint crackles. CARDIOVASCULAR: Irregular rate and rhythm. S1 and S2 noted. GASTROINTESTINAL: Soft, nondistended and nontender. Bowel sounds active. EXTREMITIES: 1+ pitting edema bilaterally. Pulses palpable. Extremities are warm. DIAGNOSTIC DATA: Chest x-ray improved inspiratory effort, improved infiltrates , mild increased interstitial markings throughout the lungs. No pleural effusions. Scattered granuloma. EKG with atrial fibrillation, nonspecific ST changes. WBC is 9.13, hemoglobin 12.6, hematocrit 40.4, platelet count 266. INR is 1.74. Sodium is 142, potassium 3.5, chloride 100, CO2 is 28, anion gap is 23, BUN is 14, creatinine 0.8, glucose 137, calcium 9.7, magnesium 1.9, total bilirubin 1.19, AST is 23, ALT is 13, alkaline phosphatase 69. Troponin is 0.012. ProBNP is 6926. TSH is 2.55. ASSESSMENT AND PLAN: 1. Atrial fibrillation with rapid ventricular response. The patient has been started on Cardizem drip. We will monitor her telemetry and adjust accordingly. She is on Coumadin which we will continue. TSH is within normal limits. Cardiology has also been consulted. 2. Acute on chronic systolic heart failure. Actually slightly improved since last admission; however, she is still edematous with very fine crackles in her lung bases. We will continue IV Lasix diuresis. She has already been switched over to p.o. tomorrow by Cardiology. We will follow strict I's and O's and daily weights. 3. Encephalopathy. Unclear what her baseline neuro status is, but given subtherapeutic INR, head CT has been ordered. We will are awaiting a urinalysis. There is also a question of dementia. 4. Hypertension. Continue home medications, adjust as necessary. 5. Severe mitral regurgitation. The patient is a poor candidate per Cardiology. We will continue treatment for heart failure and hypertension. 6. Palliative care has also been consulted. 7. DVT prophylaxis with her Coumadin. Further recommendations to follow. Dictated by DANIEL Mueller for Ryan Silva MD Addendum: Patient seen and examined by myself. Agree with DANIEL note. It reflects my assessment and plan. Patient is being admitted to hospital for atrial fibrillation with RVR. Cardizem drip has been started and he has been sent to [facility]. Cardiology has been already consulted. Will follow recommendations. Will monitor this patient closely. cc: MD Gerald Daily CRNP Cesar Garcia-Rodriguez, MD MTDGalina
[2018-12-26] MEDS: HUMULIN R SUBQ SCH ×2 (16:48→20:42)
[2018-12-26 19:09] LABS: URINE SOURCE CLEAN CATCH
[2018-12-26 19:14] LABS: BILIRUBIN URINE NEGATIVE (NEGATIVE); BLOOD URINE NEGATIVE (NEGATIVE); COLOR YELLOW; GLUCOSE URINE NEGATIVE (NEGATIVE); KETONE URINE NEGATIVE (NEGATIVE); LEUKOCYTES URINE NEGATIVE (NEGATIVE); NITRITE URINE NEGATIVE (NEGATIVE); PH URINE 6.5; PROTEIN URINE 30 mg/dL (NEGATIVE); TURBIDITY URINE CLEAR (CLEAR); UROBILINOGEN URINE NORMAL (NORMAL)
[2018-12-26 19:15] LABS: UR EPITHELIAL CELLS <10 /HPF (<10); URINE BACTERIA NEGATIVE /HPF; URINE RBC <10 /HPF (<10); URINE WBC <10 /HPF (<10)
[2018-12-26] MEDS: COUMADIN PO SCH (20:51)
[2018-12-26] MEDS: MELATONIN PO SCH (20:51)
[2018-12-26] MEDS: ULTRAM PO SCH (20:51)
[2018-12-26] MEDS: COREG PO SCH (20:51)
[2018-12-26] MEDS: NEURONTIN PO SCH (20:52)
[2018-12-26] MEDS: ZOCOR PO SCH (20:52)
[2018-12-27 05:33] LABS: HEMATOCRIT 39.9 % (37.0-47.0); HEMOGLOBIN 12.4 g/dL (12.0-16.0); MCH 30.5 PG (27-31); MCHC 31.1 g/dL (33-37); MPV 10.1 FL (7.4-10.4); RBC 4.07 XMIL (4.2-5.4); RDW 15.6 % (11.5-14.5); WBC 7.42 X1000 (4.8-10.8)
[2018-12-27 05:36] LABS: INR 1.76; PROTIME 21.8 Seconds (11.0-16.0)
[2018-12-27 05:49] LABS: CALCIUM 9.2 mg/dL (8.8-10.2); CREATININE 0.9 mg/dL (0.5-0.9); POTASSIUM 3.1 mmol/L (3.5-5.1)
[2018-12-27] MEDS: HUMULIN R SUBQ SCH ×4 (06:01→21:37)
[2018-12-27] MEDS ORDERED: KLOR-CON PO ONE (08:00)
[2018-12-27] MEDS ORDERED: AYR NASAL SPRAY NAS PRN (08:13)
[2018-12-27] MEDS: LASIX PO SCH (08:57)
[2018-12-27] MEDS: ALDACTONE PO SCH (08:57)
[2018-12-27] MEDS: FOLIC ACID PO SCH (08:58)
[2018-12-27] MEDS: DITROPAN PO SCH (08:58)
[2018-12-27] MEDS: LANOXIN PO SCH (08:58)
[2018-12-27] MEDS: COREG PO SCH ×2 (08:59→21:37)
[2018-12-27] MEDS: FLONASE NAS SCH (08:59)
[2018-12-27] MEDS ORDERED: MIRALAX PO PRN (09:25)
--- NOTE | 2018-12-27 09:44 | PROGRESS NOTE ---
DATE: 12/27/2018 SUBJECTIVE: The patient is resting comfortably in bed. She complains of nasal congestion. OBJECTIVE: Vital signs: Temperature 98.6 degrees, blood pressure 127/85, heart rate 89, respirations 12, O2 saturations 100% on room air. General: This is an elderly female sitting up in bed in no acute distress. Heart: S1, S2. Normal. Lungs: Equal air entry bilaterally. No crackles. No rales. Abdomen: Positive bowel sounds. Soft, nontender, nondistended. Extremities: No edema, no cyanosis. Neurologic: The patient is alert and oriented x3. LABS: INR 1.7. Sodium 143, potassium 3.1, chloride 100, CO2 30, BUN 20, creatinine 0.9, glucose 118. Sodium 7.4, hemoglobin 12, hematocrit 39, platelets 262. ASSESSMENT AND PLAN: 1. Atrial fibrillation. Continue on the current medications as directed by the grass cutter. 2. Hypertension. Continue on current antihypertensive regimen. 3. Chronic constipation. Will restart the patient's laxatives. 4. Pulmonary edema. Continue on diuretic therapy as directed by the grass cutter. cc: Maricruz Lozano MD
[2018-12-27] MEDS: PERICOLACE PO SCH ×2 (10:11→21:37)
[2018-12-27] MEDS: TYLENOL PO PRN ×3 (10:11→22:47)
[2018-12-27] MEDS ORDERED: LASIX IV ONE (12:36)
--- NOTE | 2018-12-27 13:14 | CARDIOLOGY PROGRESS NOTE ---
DATE: 12/27/2018 SUBJECTIVE: Ms. Huizar reports she is doing well. She has no complaints today. She continues to seem to be quite confused. She is tolerating oral intake. She is very pleasant. PHYSICAL EXAMINATION: Vital Signs: The patient is afebrile. Her heart rates appear to be predominantly in the 70s to 80s. Blood pressure 145/88. Systolics have been primarily in the 120s to 150s. Her I's and O's are difficult to track as there is very little input or output measured. She has a number of incontinent voids not measured. General: She is in no acute distress. Cardiovascular: She is in an irregularly irregular rhythm. Sounds rate controlled. She has no murmurs. No lower extremity edema. Chest: Exam sounds relatively clear. She has no increased work of breathing. Abdomen: Soft, nontender. PERTINENT DATA: Her INR is 1.7. Her sodium is 143. Potassium is 3.1. BUN is 20. Creatinine is 0.9. Magnesium level is 1.9. ASSESSMENT: Ms. Huizar is an 88-year-old female who came in with atrial fibrillation with rapid ventricular response. She has a significant elevation in her proBNP. PLAN: I will give her a one-time dose of Lasix again today. ProBNP to be checked in the morning. I have had discussions with Shelby of the palliative care service, and the family has moved towards a DNR Level 1 status. I put the order in the chart to affect this. I believe the patient will likely be okay to go home in the morning. We will continue her on digoxin. I will stop the carvedilol and will try placing her on Toprol 50 starting in the morning. We will continue the carvedilol for today's dosing and then start the Toprol first thing in the morning at 50 mg daily. Otherwise, medications will remain the same. She could likely be discharged on a higher dose of Lasix to go home with. I would likely increase it to 40 mg. cc: Darvin Fallon MD
--- NOTE | 2018-12-27 19:35 | CONSULTATION ---
DATE OF CONSULTATION: 12/27/2018 REASON FOR CONSULTATION: Altered mental status. HISTORY OF PRESENT ILLNESS: This is an 88-year-old right-handed female who was admitted yesterday with atrial fibrillation with RVR. History is from the patient and her granddaughter as well as chart review. She had apparently gone for hospital followup with her wood and wood products factory worker and had reported increasing confusion and was complaining of chest pain and some lower extremity swelling. Her heart rate was noted to be in the 130s and she was directly admitted to the hospital. In the hospital, the patient has had some relatively mild confusion. Granddaughter at bedside states that she seems to have been more confused and anxious appearing since shortly after Lilliam. To her, she seems anxious and uneasy. She gets flustered. At one point recently she nearly wheeled herself out of a restaurant because she felt she needed to get home for some uncertain reason. 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 The patient has 24-hour sitters. She lives, I believe, in assisted living as well. I believe she has had 24-hour care since October as well. She seems to be confused often and at times even before October. I am uncertain about a clear start to when changes were noticed with her. She has "good days and bad days." Sometimes she is more oriented than others and this precedes Lilliam. She has never been evaluated for cognitive impairment and they do not believe she has seen a neurologist. They do not believe she has ever been on medications for cognitive impairment. She had the occasional fall in the distant past but did have some more frequent falls, which has been remedied by the use of a wheelchair and with 24- hour assistance. Granddaughter reports she nearly tried to eat a ketchup pack, presumably thinking it was a urdu adame while hospitalized. A head CT showed progression of chronic microvascular ischemic changes and stable, at least moderate, diffuse cerebral atrophy. PAST MEDICAL HISTORY: 1. Chronic atrial fibrillation, on Coumadin therapy, subtherapeutic on admission. 2. Hypertension. 3. Diabetes. 4. Hyperlipidemia. 5. Polycythemia vera. 6. Recent pancytopenia thought to be due to hydroxyurea, which was held. 7. Systolic heart failure. 8. Right hip arthroplasty and cholecystectomy. SOCIAL HISTORY: She is and lives in assisted living. She has family that lives essentially right next door and checks on her frequently. She now has 24-hour sitters. No tobacco, alcohol, or illicits. FAMILY HISTORY: No strokes. Positive heart disease. No dementia. ALLERGIES: Listed to penicillin. HOME MEDICATIONS: Include, Neurontin 300 mg p.o. at night, melatonin 5 mg at bedtime, Ditropan, Zocor, digoxin, folic acid, tramadol 50 mg p.o. at bedtime, Coumadin, Coreg, Lasix, Senokot, and Aldactone. REVIEW OF SYSTEMS: Balance of 12 was conducted and is otherwise negative, except for that detailed in the HPI. She reports a rare mild headache but nothing currently. PHYSICAL EXAMINATION: Vital signs: Afebrile, blood pressure 129/53. Pulse 70s to 113, respirations 22, saturation 99% on room air. Ms. Huizar is supine in bed, awake , alert, and reasonably attentive. She is oriented to self, granddaughter, location, not to timing. She follows simple commands consistently. Left, right, and digit distinction preserved. No language disturbance. No dysarthria. She is spontaneous. Pupils are equal, round, and reactive. Gaze is conjugate. Extraocular movements are full and with good down gaze. Visual ross intact to direct confrontational testing. Face symmetric with equal activation. Facial sensation reported intact. Tongue is midline. Palate elevates symmetrically. Shoulder shrug is full. No drift. Strength is preserved and symmetric in the arms and legs. She is quite strong actually. [id number] and rapid alternating movements are preserved. She is a little slow with finger- to-nose. Reports preserved sensation to light touch, that is symmetric in the arms and legs. Reflexes are absent at the ankles and knees. Trace at the wrists. No clonus. Plantar response is downgoing. DIAGNOSTIC DATA: Noncontrasted head CT personally reviewed. There is apparent stable, at least moderate cerebral atrophy. There is mention of worsened periventricular chronic white matter ischemic changes, and that has worsened when compared to September 2017. No acute findings. Normal white count, hemoglobin, hematocrit, and platelet count. INR of 1.76. Normal sodium, BUN, and creatinine. Blood sugar is 118 to 248. Normal calcium, magnesium, AST, and ALT. Normal alkaline phosphatase and TSH. Urinalysis shows 30 of protein, otherwise normal. 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 Difficult to fully assess in the hospital setting with acute issues and medication changes. Part of her recent sense of anxiety may be related to tachycardia, though I am not certain all of it is related. She has at least moderate cerebral atrophy and quite a bit of chronic microvascular ischemic changes on head CT that was performed here. Other than being in an unfamiliar environment, I am not seeing anything significant that would predispose her to confusion while here in the hospital. She has had some medication adjustments. I would continue treating her medical conditions as you are doing. We can consider MRI of the brain if she is not improving or if she worsens. We would be happy to see her as an outpatient in the clinic once her acute medical conditions are stable. Thank you for the consultation. cc: Susan Orozco MD MTDD
[2018-12-27] MEDS: ZOCOR PO SCH (21:37)
[2018-12-27] MEDS: MELATONIN PO SCH (21:37)
[2018-12-27] MEDS: COUMADIN PO SCH (21:37)
[2018-12-27] MEDS: NEURONTIN PO SCH (21:37)
[2018-12-27] MEDS: ULTRAM PO SCH (21:37)
[2018-12-28] MEDS: HUMULIN R SUBQ SCH ×3 (06:29→16:29)
[2018-12-28 07:36] LABS: HEMATOCRIT 39.4 % (37.0-47.0); HEMOGLOBIN 12.8 g/dL (12.0-16.0); MCH 31.4 PG (27-31); MCHC 32.5 g/dL (33-37); MCV 96.6 FL (81-99); MPV 10.1 FL (7.4-10.4); RBC 4.08 XMIL (4.2-5.4); RDW 15.5 % (11.5-14.5); WBC 8.8 X1000 (4.8-10.8)
[2018-12-28 07:40] LABS: INR 1.95; PROTIME 23.6 Seconds (11.0-16.0)
[2018-12-28 08:12] LABS: CALCIUM 9.1 mg/dL (8.8-10.2); CREATININE 0.9 mg/dL (0.5-0.9); POTASSIUM 3.7 mmol/L (3.5-5.1)
--- NOTE | 2018-12-28 08:47 | Diag Imaging Result Doc PS360 ---
CHEST-2 VIEWS - 12/28/2018 INDICATION: pulmonary edema COMPARISON: 12/26/2018 FINDINGS: There is stable mild cardiomegaly. Pulmonary vascularity is grossly normal. No dense infiltrates or edema. There is some mild pulmonary fibrosis in the lung bases similar to prior. IMPRESSION: Cardiomegaly. Mild pulmonary fibrosis in the lung bases. Electronically signed by Leonardo Clarke 12/28/2018 8:45 AM
[2018-12-28] MEDS ORDERED: TOPROL XL PO SCH (09:00)
[2018-12-28] MEDS: FLONASE NAS SCH (09:16)
[2018-12-28] MEDS: ALDACTONE PO SCH (09:17)
[2018-12-28] MEDS: LASIX PO SCH (09:18)
[2018-12-28] MEDS: DITROPAN PO SCH (09:18)
[2018-12-28] MEDS: FOLIC ACID PO SCH (09:18)
[2018-12-28] MEDS: PERICOLACE PO SCH (09:18)
[2018-12-28] MEDS: LANOXIN PO SCH (09:19)
--- NOTE | 2018-12-28 10:41 | PROGRESS NOTE ---
DATE: 12/28/2018 SUBJECTIVE: The patient is resting comfortably in bed. No acute events noted overnight. OBJECTIVE: Vital Signs: Temperature 98 degrees, blood pressure 154/76, heart rate 79, respirations 16, and O2 saturation 98% on room air. General: This is a chronically ill-appearing elderly female lying in bed in no acute distress. Heart: S1, S2 normal. Irregularly irregular rhythm. Lungs: Equal air entry bilaterally diminished at the bases. Abdomen: Positive bowel sounds. Soft, nontender, and nondistended. Extremities: No edema. No cyanosis. Neurologic: The patient is alert and oriented x3. LABORATORY: Reviewed. ASSESSMENT AND PLAN: 1. Atrial fibrillation. The patient appears to be under better rate control. Continue on the current medications as prescribed by the four slide machine operator. 2. Volume overload. Continue on oral Lasix. 3. Hypertension. The patient's blood pressure is running a little bit higher today. We will defer to the four slide machine operator regarding adjustment of the dosages. 4. Constipation. Improved. Continue with laxative therapy. 5. Disposition: Palliative Care is following, and will be meeting with the family today. cc: Maricruz Lozano MD MTDD
--- NOTE | 2018-12-28 12:00 | PROGRESS NOTE ---
DATE: 12/28/2018 SUBJECTIVE: Dr. Orozco saw Ms. Huizar for Neurology evaluation earlier this week. 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 She has had increased confusion while hospitalized. She seems a little bit brighter today. OBJECTIVE: Neurologic: On bedside exam, she provided correct name of the hospital, the day of the month, name of the month and missed the day of the week by just one. She named the president. She had appropriate conversation with family at the bedside. ASSESSMENT AND PLAN: I do not have anything to add to Dr. Orozco's suggestions. We might consider MRI later. After she is discharged and stable at home, we might consider more thorough outpatient cognitive evaluation, and she might be a candidate for cholinesterase inhibitor trial. I discussed that with family briefly. Thanks for asking Neurology to see Ms. Huizar. cc: MD FLORI Faustin III
--- NOTE | 2018-12-28 13:18 | CARDIOLOGY PROGRESS NOTE ---
DATE: 12/28/2018 SUBJECTIVE: Ms. Huizar is pleasant today. She continues to be quite confused. She is sitting up in bed, fidgeting with her sheets. PHYSICAL EXAMINATION: Vital Signs: She is afebrile, heart rate 82, her blood pressure is 134/87. General: She is in no acute distress. Again, pleasant, confused. Attempts to answer questions. Cardiovascular: She sounds to be in a regular rate and rhythm. I do not hear any obvious murmurs. She has no lower extremity edema. Chest Examination: Clear bilaterally. She has no increased work of breathing. Abdomen: Soft, nontender. PERTINENT DATA: White count is 8.8, hematocrit 39, platelet count 314,000. INR is 1.9. Sodium 143, potassium is 3.7, BUN 22, creatinine 0.9. ASSESSMENT: Ms. Huizar is an 88-year-old female who presented in rapid atrial fibrillation to our office. PLAN: She seems better rate controlled today. At this point, I believe it is reasonable to allow her to be discharged home. Discussions with the family have proceeded and they have decided to bring her home on hospice. I believe this is a very reasonable option considering her age and comorbidities. She does have a severe degree of mitral regurgitation that has been managed medically and cannot be intervened on due to her comorbidities. Please contact us if we can be of further assistance. cc: Darvin Fallon MD
[2018-12-28] MEDS ORDERED: GEODON IM ONE (15:09)
[2018-12-28] MEDS ORDERED: STERILE WATER INJ. INJ ONE (15:09)
[2018-12-28 16:22] VITALS: BP 152/105
== END 2018-12-28 18:30 | disposition hospice, home (50) | DRG 308 ==
LOC: DIRADM → SUATTDRO 09:57 → OBSVTOIN 09:57 → 3S 10:20 → 3N 12-27 15:28
PROVIDERS: ATTEND Internal Medicine
CPT/HCPCS: 70450; 71010; 71020; 71045; 71046; 80048; 80053; 80162; 81001; 82948; 83735; 83880; 84443; 84484; 85025; 85027; 85610; 93005; 93010; A9270; J1940; J3486; XXXXX

== ENCOUNTER 2019-01-27 19:31 | Inpatient (IN) ==
[2019-01-27] MEDS ORDERED: NS 500 ML IV ONE (19:58)
--- NOTE | 2019-01-27 20:54 | Diag Imaging Result Doc PS360 ---
EXAM: RIBS UNILAT W/PA CHEST RIGHT INDICATION: chest wall pain TECHNIQUE: 4 views COMPARISON: Chest radiograph dated 12/28/2018 FINDINGS: There are nondisplaced or minimally displaced fractures involving the anterior aspect of the eighth and ninth ribs on the right. No other discrete rib fracture is identified. There is no evidence of pneumothorax or pleural fluid collection. There is cardiomegaly and there is pulmonary venous congestion that is similar to previous studies. IMPRESSION: 1.Fractures of the anterior eighth and ninth ribs on the right. 2.Cardiomegaly and pulmonary venous congestion that is similar to prior studies. Electronically signed by Raghu Naqvi 01/27/2019 8:52 PM
--- NOTE | 2019-01-27 20:57 | Diag Imaging Result Doc PS360 ---
EXAM: XRAY HIP W/PELVIS BILAT 3-4VWS INDICATION: hip pain TECHNIQUE: 6 views COMPARISON: 10/02/2014 FINDINGS: There are severe degenerative changes involving the lower lumbar spine. The bones are osteopenic throughout. There are degenerative changes at both acetabular roofs. There is a helical nail a medullary meño associated with the right hip indicating prior ORIF. There is surrounding heterotopic ossification. No definite acute fracture, dislocation, or significant intrinsic osseous lesion is appreciated. IMPRESSION: Chronic changes as described. No definite acute osseous abnormality. Electronically signed by Raghu Naqvi 01/27/2019 8:54 PM
[2019-01-27] MEDS ORDERED: NORCO-5 PO ONE (21:07)
[2019-01-27] MEDS ORDERED: SEROQUEL PO ONE (21:32)
[2019-01-27 21:35] LABS: BASO# 0.06 X1000 (0.0-0.2); BASO% 0.6 % (0.0-0.8); EOS# 0.34 X1000 (0.0-0.7); EOS% 3.2 % (0.0-10.0); HEMOGLOBIN 13.6 g/dL (12.0-16.0); IMM GRAN# 0.02 X1000 (0.0-0.04); IMM GRAN% 0.2 % (0.0-0.5); LYMPH# 0.77 X1000 (1.2-3.4); LYMPH% 7.3 % (20.5-51.1); MCH 28.9 PG (27-31); MCHC 30.9 g/dL (33-37); MCV 93.6 FL (81-99); MONO# 0.89 X1000 (0.11-0.59); MONO% 8.5 % (1.7-9.3); MPV 10.1 FL (7.4-10.4); NEUT# 8.42 X1000 (1.4-6.5); NEUT% 80.2 % (42.2-75.2); PLT 440 X1000 (130-400); RDW 15.7 % (11.5-14.5)
[2019-01-27 21:38] LABS: ALB/GLOB RATIO 1.6; ALBUMIN 4.4 g/dL (3.5-5.0); CALCIUM 8.9 mg/dL (8.8-10.2); CREATININE 1.1 mg/dL (0.5-0.9); POTASSIUM 4.3 mmol/L (3.5-5.1); TOTAL BILIRUBIN 0.7 mg/dL (0.20-1.00); TOTAL PROTEIN 7.1 g/dL (6.3-8.3)
[2019-01-27] MEDS ORDERED: NORCO-7.5 PO PRN (22:54)
--- NOTE | 2019-01-27 23:07 | HISTORY AND PHYSICAL ---
PRIMARY CARE PHYSICIAN: Carlos Loja MD CHIEF COMPLAINT: Right rib pain, shortness of breath and falls. HISTORY OF PRESENTING ILLNESS: An 88-year-old female with a history of chronic atrial fibrillation, on anticoagulation; hypertension; CHF with EF of 35%. She apparently has been having falls for the past several months or so. The patient apparently fell recently and started having pain in her right rib region. She states that she was somewhat short of breath. She was brought to the emergency department. She had imaging done, which did show right 8th and 9th rib fractures. She was also having desaturations as per ER physician, to around the 80s. Due to her overall presenting symptoms, it was thought that she required admission for further management. At the time of my examination the patient denied any headache, fever, chills, chest pain, hemoptysis or melena, but complained of shortness of breath and right rib pain. PAST MEDICAL HISTORY: Includes chronic atrial fibrillation, hypertension, hyperlipidemia, polycythemia vera, CHF with EF of 35%, severe mitral regurgitation. PAST SURGICAL HISTORY: Right hip surgery and cholecystectomy. ALLERGIES: Penicillin. MEDICATIONS: Current medications include digoxin 125 mcg 1/2 tablet daily; folic acid 1 mg p.o. daily; Lasix 20 mg p.o. daily; gabapentin 300 mg p.o. at bedtime; metoprolol 50 mg p.o. daily; oxybutynin 5 mg p.o. daily; quetiapine 25 mg p.o. at bedtime; simvastatin 20 mg p.o. at bedtime; spironolactone 12.5 mg p.o. daily; tramadol 50 mg p.o. b.i.d.; warfarin 3 mg p.o. at bedtime. SOCIAL HISTORY: No history of smoking, alcohol or illicit drug use. Lives at [facility]. FAMILY HISTORY: No history of coronary disease. REVIEW OF SYSTEMS: Fourteen-point review of systems is as listed per HPI. Other systems negative. PHYSICAL EXAMINATION: GENERAL: Cooperative, friendly elderly female. She is resting more comfortably now. VITAL SIGNS: Temperature 97.4 degrees, pulse 105, respirations 18, blood pressure 153/86. HEENT: Extraocular movements intact. PERRLA. NECK: No masses. CHEST: Bibasilar rales and right rib tenderness. CARDIOVASCULAR: Regular rate and rhythm. ABDOMEN: Soft. Positive bowel sounds. EXTREMITIES: No edema. NEUROLOGIC: She is awake, alert and oriented x2. GENITOURINARY: No bladder distention. SKIN: Warm. LABORATORY DATA: WBCs 10.50, hemoglobin 13.6, hematocrit 44.0, platelets 440,000. Sodium 144, potassium 4.3, chloride 102, CO2 is 25, BUN is 35, creatinine is 1.1, glucose 164. DIAGNOSTIC DATA: Chest x-ray shows fractures of the anterior 8th and 9th ribs on the right. ASSESSMENT: An 88-year-old female with a history of chronic atrial fibrillation, hypertension and congestive heart failure, who presented to the emergency department after having repeated falls. She developed a moderate amount of pain in the right rib region. She was evaluated in the emergency department. She was found to have rib fractures and was also having desaturations. Due to her presenting symptoms, it was thought that she would require admission for further management. 1. Status post multiple falls. 2. Right 8th and 9th rib fractures. 3. Dyspnea, multifactorial. 4. Hypertension. 5. Chronic atrial fibrillation. PLAN: 1. We will admit the patient to the medical floor with telemetry. 2. Continue supportive treatment with pain control and also supplemental oxygen. 3. We will monitor blood pressure closely. 4. We will monitor her pro time and INR. Continue anticoagulation. 5. DVT prophylaxis. Current anticoagulation will suffice. 6. We will continue to follow and reassess, and make further recommendations based on the patient's clinical course. cc: Rachid Salgado MD
[2019-01-28 07:34] LABS: BASO# 0.03 X1000 (0.0-0.2); BASO% 0.4 % (0.0-0.8); EOS# 0.19 X1000 (0.0-0.7); EOS% 2.6 % (0.0-10.0); HEMATOCRIT 39.8 % (37.0-47.0); HEMOGLOBIN 12.2 g/dL (12.0-16.0); IMM GRAN# 0.02 X1000 (0.0-0.04); IMM GRAN% 0.3 % (0.0-0.5); LYMPH# 1.18 X1000 (1.2-3.4); LYMPH% 16.5 % (20.5-51.1); MCH 29.5 PG (27-31); MCHC 30.7 g/dL (33-37); MCV 96.4 FL (81-99); MONO# 1.01 X1000 (0.11-0.59); MONO% 14.1 % (1.7-9.3); MPV 10.2 FL (7.4-10.4); NEUT# 4.74 X1000 (1.4-6.5); NEUT% 66.1 % (42.2-75.2); PLT 275 X1000 (130-400); RBC 4.13 XMIL (4.2-5.4); RDW 15.7 % (11.5-14.5); WBC 7.17 X1000 (4.8-10.8)
[2019-01-28 07:45] LABS: EOS 3 % (1-10); LYMPHS 19 % (21-51); MONO 14 % (1-9); OVALOCYTES OCCASIONAL; SEGS 64 % (42-75)
[2019-01-28 08:03] LABS: AGAP 15; BUN 30 mg/dL (8-22); CALCIUM 8.5 mg/dL (8.8-10.2); CHLORIDE 108 mmol/L (98-107); COSMO 290; CREATININE 0.8 mg/dL (0.5-0.9); ESTIMATED GFR > 60; GLUCOSE 115 mg/dL (70-104); POTASSIUM 3.9 mmol/L (3.5-5.1); SODIUM 142 mmol/L (136-145); TCO2 19 mmol/L (25-35)
[2019-01-28] MEDS: LANOXIN PO SCH (09:03)
[2019-01-28] MEDS: LASIX PO SCH (09:03)
[2019-01-28] MEDS: ALDACTONE PO SCH (09:04)
[2019-01-28] MEDS: DITROPAN PO SCH (09:04)
[2019-01-28] MEDS: FOLIC ACID PO SCH (09:04)
[2019-01-28] MEDS: NORCO-7.5 PO PRN ×4 (09:04→21:25)
[2019-01-28] MEDS: TOPROL XL PO SCH (09:04)
[2019-01-28] MEDS: LIDODERM TOP SCH (09:05)
--- NOTE | 2019-01-28 14:00 | PROGRESS NOTE ---
DATE: 01/28/2019 SUBJECTIVE: The patient is lying at this moment comfortably in bed. She has been having chest pain with movement. She has right 8th and 9th rib fractures. She has been placed on [place] and she seems to be tolerating this. Recently she was discharged, 01/05/2019, home with hospice. It looks like she has severe mitral valve regurgitation, ejection fraction around 35%, and now she has presented with multiple falls. OBJECTIVE: Vital Signs: Temperature 99.5 degrees, pulse 100, respiratory rate 20, blood pressure 127/68, oxygen saturation 99 on 2 L of nasal cannula. HEENT: Head normocephalic, no trauma. PERRLA. Neck: Supple. No JVD. No masses. Central trachea. Chest: Clear to auscultation. No wheezing. No rales. Tenderness to palpation on the right side of the chest. Cardiovascular: RRR. Systolic murmur. Abdomen: Soft. Positive bowel sounds. Extremities: No edema. No clubbing. Neurologic: The patient is alert and oriented x2. She is oriented to time. LABORATORY: WBC 7.1, hemoglobin 12.2, hematocrit 39.8, platelets 275,000. Sodium 142, potassium 3.9, chloride 108, bicarbonate 19, BUN 30, creatinine 0.8, glucose 115. Calcium 8.5. ASSESSMENT AND PLAN: 1. Right 8th and 9th rib fractures. We will continue trying to control her pain. She has been on warfarin due to chronic atrial fibrillation. We will ask for a PT/INR in the morning. For now, I will hold the warfarin. It looks like she has been having multiple falls, as per the patient, at least 3 of them, probably this patient does not qualify to be on warfarin anymore. I will discuss with the family. 2. Status multiple falls, aware. 3. Shortness of breath, multifactorial. She is not hypoxemic. This is likely secondary to her pain. 4. Hypertension, stable. 5. Chronic atrial fibrillation, stable. 6. Congestive heart failure with an ejection fraction of 35%. Aware. Stable. Continue with home medication. 7. Severe mitral regurgitation. This patient does not qualify for any kind of surgical intervention. She was discharged last month, 01/05/2019, home with hospice. cc: Johnathon Corcoran MD
[2019-01-28] MEDS: SEROQUEL PO SCH (20:27)
[2019-01-28] MEDS: NEURONTIN PO SCH (20:27)
[2019-01-28] MEDS: ZOCOR PO SCH (20:27)
[2019-01-28] MEDS ORDERED: COUMADIN PO SCH (21:00)
[2019-01-29] MEDS: NORCO-7.5 PO PRN ×5 (04:38→21:05)
[2019-01-29 07:14] LABS: BASO# 0.03 X1000 (0.0-0.2); BASO% 0.4 % (0.0-0.8); EOS# 0.05 X1000 (0.0-0.7); EOS% 0.6 % (0.0-10.0); HEMATOCRIT 35.4 % (37.0-47.0); HEMOGLOBIN 10.9 g/dL (12.0-16.0); IMM GRAN# 0.02 X1000 (0.0-0.04); IMM GRAN% 0.3 % (0.0-0.5); LYMPH# 0.73 X1000 (1.2-3.4); LYMPH% 9.2 % (20.5-51.1); MCH 28.9 PG (27-31); MCHC 30.8 g/dL (33-37); MCV 93.9 FL (81-99); MONO# 0.68 X1000 (0.11-0.59); MONO% 8.6 % (1.7-9.3); NEUT# 6.41 X1000 (1.4-6.5); NEUT% 80.9 % (42.2-75.2); PLT 307 X1000 (130-400); RBC 3.77 XMIL (4.2-5.4); RDW 15.7 % (11.5-14.5); WBC 7.92 X1000 (4.8-10.8)
[2019-01-29 07:24] LABS: INR 2.09
[2019-01-29 07:33] LABS: AGAP 14; BUN 24 mg/dL (8-22); CALCIUM 8.4 mg/dL (8.8-10.2); CHLORIDE 104 mmol/L (98-107); COSMO 288; CREATININE 0.7 mg/dL (0.5-0.9); ESTIMATED GFR > 60; GLUCOSE 142 mg/dL (70-104); POTASSIUM 3.7 mmol/L (3.5-5.1); SODIUM 141 mmol/L (136-145); TCO2 23 mmol/L (25-35)
[2019-01-29] MEDS: LIDODERM TOP SCH (09:00)
[2019-01-29] MEDS: LANOXIN PO SCH (09:01)
[2019-01-29] MEDS: ALDACTONE PO SCH (09:01)
[2019-01-29] MEDS: LASIX PO SCH (09:01)
[2019-01-29] MEDS: FOLIC ACID PO SCH (09:01)
[2019-01-29] MEDS: DITROPAN PO SCH (09:01)
[2019-01-29] MEDS: TOPROL XL PO SCH (09:01)
--- NOTE | 2019-01-29 11:39 | PROGRESS NOTE ---
DATE: 01/29/2019 SUBJECTIVE: At this moment, this patient is lying comfortably in bed but every time she moves, she is having severe chest pain. She has right 8th and 9th rib fractures. She has been placed on [place] and she has been tolerating this. Recently, she was discharged on 01/05/2019 to home with hospice but it looks like she was doing fine and she is no longer on hospice. She has a severe mitral valve regurgitation with an ejection fraction of 35% and now she presented with multiple falls and rib fractures. OBJECTIVE: Vital Signs: Temperature 98.5 degrees, pulse 113, respiratory rate 21, blood pressure 145/98, oxygen saturation 97% on 2 L of nasal cannula. HEENT: Head normocephalic. No trauma. PERRLA. Neck: Supple. No JVD. No masses. Central trachea. Chest: Clear to auscultation. No wheezing. No rales. Tenderness to palpation at the level of the right side of the chest. Cardiovascular: RRR. Systolic murmur. Abdomen: Soft. Positive bowel sounds. Extremities: No edema. No clubbing. No cyanosis. Neurological Examination: She is alert and oriented x2. She moves all 4 extremities. Laboratory: WBC 7.9, hemoglobin 10.9, hematocrit 35.4, platelets 307,000. PT 25, INR 2.09. Sodium 141, potassium 3.7, chloride 104, bicarbonate 23, BUN 24, creatinine 0.7, glucose 142, calcium 8.4. ASSESSMENT AND PLAN: 1. Right 8th and 9th rib fractures. We will continue trying to control her pain, which is a little bit better but she is still complaining of pain. She has been on warfarin due to chronic atrial fibrillation. I have requested a PT/INR and it is therapeutic. I will put this patient back on warfarin. It looks like she has been having multiple falls. I will discuss with the family to see if we need to continue with anticoagulation or not in the near future. 2. Status post multiple falls, aware. 3. Shortness of breath, multifactorial, but she is not hypoxic and likely this is secondary to her pain. 4. Hypertension, stable. 5. Chronic atrial fibrillation, stable. INR therapeutic. 6. Congestive heart failure with an ejection fraction of 35%, aware, stable. Continue home medications. 7. Severe mitral regurgitation. This patient does not qualify for any kind of surgery. She was discharged last month on 01/05/2019 to home with hospice. cc: Johnathon Corcoran MD
[2019-01-29] MEDS: NEURONTIN PO SCH (21:05)
[2019-01-29] MEDS: SEROQUEL PO SCH (21:05)
[2019-01-29] MEDS: COUMADIN PO SCH (21:05)
[2019-01-29] MEDS: ZOCOR PO SCH (21:05)
[2019-01-30 07:23] LABS: HEMATOCRIT 34.4 % (37.0-47.0); HEMOGLOBIN 10.8 g/dL (12.0-16.0)
[2019-01-30 07:40] LABS: CALCIUM 8.6 mg/dL (8.8-10.2); POTASSIUM 4.1 mmol/L (3.5-5.1)
[2019-01-30] MEDS: LIDODERM TOP SCH (09:03)
[2019-01-30] MEDS: FOLIC ACID PO SCH (09:04)
[2019-01-30] MEDS: ALDACTONE PO SCH (09:04)
[2019-01-30] MEDS: LASIX PO SCH (09:04)
[2019-01-30] MEDS: DITROPAN PO SCH (09:04)
[2019-01-30] MEDS: NORCO-7.5 PO PRN ×3 (09:04→21:40)
[2019-01-30] MEDS: TOPROL XL PO SCH (09:05)
[2019-01-30] MEDS: LANOXIN PO SCH (09:05)
--- NOTE | 2019-01-30 10:34 | PROGRESS NOTE ---
DATE: 01/30/2019 SUBJECTIVE: The patient is lying comfortably in bed. She had a little bit of nosebleed, but at the moment of my exam, it was already dry. I instructed the patient not to manipulate her nose. She has right 8th and 9th rib fractures. She has been placed on [place] and she has been tolerating these. She was recently discharged on 01/05/2019 home with hospice, but it looks like she was doing fine, and she is no longer on hospice. The plan is to send this patient to a rehab center. The case has been discussed with her son and also with the social services assistant. OBJECTIVE: Vital Signs: Temperature 98.4 degrees, pulse 113, respiratory rate 18, blood pressure 154/104, oxygen saturation 94% on 2 L of nasal cannula. HEENT: Head normocephalic. No trauma. PERRLA. Neck: Supple. No JVD. No masses. Central trachea. Chest: Clear to auscultation. No wheezing. No rales. Tenderness to palpation at the level of the right side of the chest. Cardiovascular: Regular rhythm and rate. Systolic murmur. Abdomen: Soft. Positive bowel sounds. Extremities: No edema, no clubbing, no cyanosis. Neurological: She is alert and oriented x3. She is following commands and answering my questions. LABORATORY DATA: Hemoglobin 10.8, hematocrit 34.4, platelets 140,000. Potassium 4.1, chloride 104, bicarbonate 25, BUN 25, creatinine 1, glucose 107, calcium 8.6. ASSESSMENT AND PLAN: 1. Right 8th and 9th rib fractures. We will continue controlling her pain. It looks like it is a little bit better compared with admission. She has been on warfarin due to atrial fibrillation. Hemoglobin has been stable. We will continue monitoring her PT/INR, which is therapeutic. We will continue with home doses. 2. Status post multiple falls, aware. It would be a good idea if this patient is still having multiple falls after going to rehab to stop the warfarin to avoid head trauma and bleeding. The case has been discussed with the son. For now, we will see how she does. 3. Shortness of breath, multifactorial. She is a little bit hypoxic at 85, likely this is secondary to her pain. 4. Hypertension, stable. 5. Chronic atrial fibrillation, stable. INR therapeutic. Continue with same management. 6. Congestive heart failure with an ejection fraction of 35%. Aware. Continue home medications. 7. Severe mitral regurgitation. This patient does not qualify for any kind of surgery. She was discharged last month on 01/05/2019 with home hospice, but she has been doing better and she is no longer on hospice. Overall, this patient is doing better. Her pain is better. She has been having multiple falls. We will try to send her to a rehab center. The case has been discussed with the social services assistant and her son, Ronald at [phone]. cc: Johnathon Corcoran MD
[2019-01-30] MEDS: ZOCOR PO SCH (21:39)
[2019-01-30] MEDS: NEURONTIN PO SCH (21:39)
[2019-01-30] MEDS: COUMADIN PO SCH (21:39)
[2019-01-30] MEDS: SEROQUEL PO SCH (21:40)
[2019-01-31] MEDS: NORCO-7.5 PO PRN ×3 (02:27→13:14)
[2019-01-31 06:51] LABS: BASO# 0.04 X1000 (0.0-0.2); BASO% 0.7 % (0.0-0.8); EOS# 0.28 X1000 (0.0-0.7); EOS% 4.8 % (0.0-10.0); HEMATOCRIT 37.1 % (37.0-47.0); HEMOGLOBIN 11.5 g/dL (12.0-16.0); IMM GRAN# 0.03 X1000 (0.0-0.04); IMM GRAN% 0.5 % (0.0-0.5); LYMPH# 1.09 X1000 (1.2-3.4); LYMPH% 18.8 % (20.5-51.1); MCH 29.6 PG (27-31); MCV 95.4 FL (81-99); MONO# 0.59 X1000 (0.11-0.59); MONO% 10.2 % (1.7-9.3); MPV 10.2 FL (7.4-10.4); NEUT# 3.78 X1000 (1.4-6.5); PLT 288 X1000 (130-400); RBC 3.89 XMIL (4.2-5.4); RDW 15.8 % (11.5-14.5); WBC 5.81 X1000 (4.8-10.8)
[2019-01-31 07:20] LABS: AGAP 12; BUN 28 mg/dL (8-22); CALCIUM 8.7 mg/dL (8.8-10.2); CHLORIDE 104 mmol/L (98-107); COSMO 288; CREATININE 0.8 mg/dL (0.5-0.9); ESTIMATED GFR > 60; GLUCOSE 113 mg/dL (70-104); POTASSIUM 3.9 mmol/L (3.5-5.1); SODIUM 141 mmol/L (136-145); TCO2 25 mmol/L (25-35)
[2019-01-31 07:31] VITALS: BP 142/110
[2019-01-31 07:34] LABS: BANDS 2 % (0-1); EOS 2 % (1-10); LYMPHS 18 % (21-51); MONO 6 % (1-9); SEGS 72 % (42-75)
[2019-01-31 07:39] LABS: INR 2.34; PROTIME 27.3 Seconds (11.0-16.0)
[2019-01-31] MEDS: DITROPAN PO SCH (09:52)
[2019-01-31] MEDS: LIDODERM TOP SCH (09:52)
[2019-01-31] MEDS: LANOXIN PO SCH (09:52)
[2019-01-31] MEDS: TOPROL XL PO SCH (09:52)
[2019-01-31] MEDS: ALDACTONE PO SCH (09:53)
[2019-01-31] MEDS: FOLIC ACID PO SCH (09:54)
[2019-01-31] MEDS: LASIX PO SCH (09:54)
--- NOTE | 2019-01-31 13:32 | DISCHARGE SUMMARY ---
ADMISSION DATE: 01/28/2019 DISCHARGE DATE: 01/31/2019 ADMISSION DIAGNOSIS: 1. Status post multiple falls. 2. Right eighth and ninth rib fractures. 3. Dyspnea that is multifactorial. 4. Hypertension. 5. Chronic atrial fibrillation. DISCHARGE DIAGNOSIS: 1. Right eighth and ninth rib fractures with intractable pain, which has improved since admission, and will be discharged with [place] 10. 2. Dyspnea, shortness of breath, multifactorial. She was having O2 saturations of 85, which had been due to pain. Tolerating 2 L nasal cannula, 93% to 96% saturation. 3. Hypertension, stable. 4. Chronic atrial fibrillation, stable. 5. Congestive heart failure with an ejection fraction of 35%, no change in that, was continued on home medication. 6. Severe mitral regurgitation but does not qualify for surgery, was discharged last month on 01/05/2019 with home hospice but is doing better and is no longer on hospice. CONSULTATIONS: None. PROCEDURES OR SURGERIES: None. HOSPITAL COURSE: Ms. Sol Huizar is an 88-year-old female, who was admitted on the with complaints of right rib pain, shortness of breath, and falls. Apparently, she has been having falls for the past several months or so, had a recent fall and developed right rib region pain along with some mild shortness of breath. She had a chest x-ray, which showed right eighth and ninth rib fractures with lower O2 saturations due to the pain. There were no pneumothoraces, and she was admitted. Continued on oxygen. Pain management included [place] 7.5, topical Lidoderm patch. She has been weaned about 2 L nasal cannula, tolerating about 93% to 96% saturations on that. She has had stable heart rate, stable vital signs. The atrial fibrillation is rate controlled. She has been continued on Coumadin with an INR today of 2.34 and is deemed appropriate to discharge to [facility]. DISCHARGE VITAL SIGNS: Temperature 98.6, heart rate 70, respiratory rate 18, blood pressure 149/67, saturation 93% on 2 L. LABORATORY DATA: White blood cells 5000, hemoglobin 11, hematocrit 37, platelet count 288. INR 2.34. Sodium 141, potassium 3.9, BUN 28, creatinine 0.8, glucose 113, calcium 8.7. PERTINENT IMAGING: Which was performed on admission, hip and pelvic x-ray chronic changes, no acute fractures, and there was chest x-ray and ribs, which showed fractures of the anterior eighth and ninth ribs on the right, cardiomegaly, and pulmonary vascular congestion that has been similar to previous studies. DISCHARGE MEDICATIONS: 1. Coumadin 3 mg p.o. nightly. 2. Neurontin 300 mg p.o. nightly. 3. Melatonin 5 mg p.o. nightly. 4. Digoxin 125 mcg but half a tablet p.o. daily. 5. Ditropan 5 mg p.o. daily. 6. Folic acid 1 mg p.o. daily. 7. MiraLAX 17 g p.o. twice daily p.r.n. 8. Seroquel 25 mg p.o. nightly. 9. Zocor 20 mg p.o. nightly. 10.Aldactone 12.5 mg p.o. daily. 11.Lasix 20 mg p.o. daily. 12.[place] 10 1 tablet p.o. every 4 hours p.r.n. 13.Carmina-Colace 2 tablets p.o. twice daily. 14.Toprol XL 50 mg p.o. daily. DISCHARGE DIET: Heart healthy. DISCHARGE ACTIVITY: As tolerated with physical therapy. DISCHARGE FOLLOWUP: None. DISCHARGE INSTRUCTIONS: If worsening shortness of breath or sudden onset of shortness of breath, please seek medical attention immediately. Continue with nasal cannula oxygen, may wean as tolerated once pain is more controlled as well. DISCHARGE DISPOSITION: [facility]. Dictated by DANIEL Ness for Ryan Silva MD Addendum: Patient seen and examined by myself. Agree with DANIEL note. It reflects my assessment and plan. Patient is being discharged in stable condition to rehab. Will be seen by primary care doctor in 4 weeks. cc: DANIEL Ness MD [facility]
--- NOTE | 2019-02-04 03:53 | PROVIDER DOCUMENTATION ---
This chart was entered by Lorena Naqvi Scribe, acting as scribe for Miguel Phillips DO. HPI-Musculoskeletal Pain/Inj - GENERAL Chief Complaint: Fall Stated Complaint: (R) RIBS/SIDE PAIN Time Seen by Provider: 01/27/19 19:42 Source: patient - HX OF PRESENT ILLNESS-MUSKULOSKELTAL Nature of Presenting Problem: 88 yof presents w/grandddaughter w/co confusion, and slid several times today but did not fall. pt has fallen x3 this week acc to granddaughter and states that pt called her grunting and hurting today. pt oriented to self but not age, or time. pt has rt rib pain and left hip pain. pt lives in [place]. pt was in er wednesday and on 01-08. pt denies sob and cp. Quality of Pain: reports: aching Severity in ED: mild Timing: still present Review of Systems - Adult - REVIEW OF SYSTEMS - ADULT Constitutional: reports: no symptoms reported Eyes: reports: no symptoms reported Ears, Nose, Mouth & Throat: reports: no symptoms reported Cardiovascular: reports: no symptoms reported. denies: chest pain Respiratory: reports: no symptoms reported. denies: shortness of breath Gastrointestinal: reports: no symptoms reported Genitourinary: reports: no symptoms reported Musculoskeletal: reports: see HPI, joint pain (left hip), other (rt rib pain). denies: back pain, muscle aches, neck pain Integumentary: reports: no symptoms reported Neurological: reports: no symptoms reported Psychiatric: reports: no symptoms reported Endocrine: reports: no symptoms reported Hematologic/Lymphatic: reports: no symptoms reported Allergic/Immunologic: reports: no symptoms reported All Other Systems: Reviewed and Negative Past History - Adult - PAST MEDICAL HISTORY-ADULT Review of Records: reports: Old Records Reviewed, Nursing Assessment Review, Medications Reviewed, Social history reviewed & non-contributory. Major Childhood Illnesses: reports: denies history Cardiovascular: reports: A-Fib, HTN, hyperlipidemia Respiratory: reports: denies history Gastrointestinal: reports: denies history Obstetrical/Gynecological: reports: denies history Genitourinary: reports: denies history Musculoskeletal: reports: arthritis, spinal fracture, other (neuropathy) Neurological: reports: denies history Endocrine/Immune: reports: denies history Other Conditions: reports: denies history - PRIOR SURGERIES/PROCEDURES Surgical/Procedure History: reports: cholecystectomy, orthopedic (extremity) (left wrist), other (Bladder Tack, wrist, nose) - PRIOR HOSPITALIZATIONS Prior Hospitalizations: reports: none - IMMUNIZATION STATUS Childhood Immunizations: See Nurse Assessment Flu Vaccine: See Nurse Assessment - FAMILY HISTORY Family History: reviewed, not pertinent - SOCIAL HISTORY Smoking: non-smoker Substance Use: none/never Physical Exam-Injury Related - Physical Exam-Injury Related Initial Vital Signs Reviewed: Yes General Appearance: mild distress, slow to respond. negative: anxious, lethargic, combative Eyes: PERRL/EOMI Head, Ears, Nose, Mouth & Throat: normocephalic/atraumatic, moist mucous membranes, normal ENT inspection Neck: non-tender, full range of motion, supple, normal inspection Respiratory: chest non-tender, lungs clear, normal breath sounds Cardiovascular: normal peripheral pulses, regular rate, rhythm Chest/Breast: tenderness (rt rib to palp) Peripheral Pulses: radial (R): 2+, radial (L): 2+ Abdominal Exam: normal bowel sounds, non tender, soft Female Genitalia/Pelvic Exam: deferred Rectal Exam: deferred Hemoccult Exam: deferred Lymphatic: no adenopathy Back Exam: normal inspection, no CVA tenderness, no vertebral tenderness Extremity: normal range of motion, non-tender, normal inspection Integumentary: normal color, warm/dry 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 negative: anxious, disheveled, paranoid, tearful - Glascow Coma Score Best Eye Response ([place]): (4) open spontaneously Best Verbal Response ([place]): (4) confused conversation Best Motor Response ([place]): (5) localizes to pain [place] Total: 13 Progress - PLAN OF CARE/RESULTS Progress/Plan/Lab Results: Orders Category Date Time Status Admit - [facility] Routine AdmDCTranf 01/27/19 22:54 Active Activity - Up with Assistance ORDERED Care 01/27/19 22:54 Active Intake and Output-Strict ORDERED Care 01/27/19 22:54 Active Vital Signs Order Q 8-HR ASSESS Care 01/27/19 22:54 Active Z-Document. for Tele Applied ORDERED Care 01/27/19 22:54 Completed Social Service Consult Routine Cons 01/27/19 22:54 Active Heart Healthy Diet Diet 01/27/19 22:55 Completed RIBS UNILAT W/PA CHEST RIGHT [RAD] Stat Exams 01/27/19 19:51 Completed XRAY HIP W/PELVIS BILAT 3-4VWS [RAD] Stat Exams 01/27/19 19:51 Completed BASIC METABOLIC PANEL [CHEM] Routine Lab 01/28/19 07:07 Completed CBC WITH DIFF [HEME] Routine Lab 01/28/19 07:07 Completed CBC WITH ELECTRONIC DIFF [HEME] Stat Lab 01/27/19 21:00 Completed COMPREHENSIVE METABOLIC PANEL [CHEM] Stat Lab 01/27/19 21:00 Completed 0.9% Sodium Chloride Inj [Ns] 500 ml Med 01/27/19 19:58 Discontinued IV 999 mls/hr Digoxin [Lanoxin] Med 01/28/19 09:00 Discontinued 62.5 microgm PO DAILY Folic Acid Med 01/28/19 09:00 Discontinued 1 mg PO DAILY Furosemide [Lasix] Med 01/28/19 09:00 Discontinued 20 mg PO DAILY Gabapentin [Neurontin] Med 01/28/19 21:00 Discontinued 300 mg PO QHS Hydrocodone/APAP 5 mg/325 mg [Ethel-5] Med 01/27/19 21:07 Discontinued 1 each PO NOW ONE Hydrocodone/APAP 7.5 mg/325 mg [Ethel-7.5] Med 01/28/19 08:42 Discontinued 1 each PO Q4H PRN PRN Hydrocodone/APAP 7.5 mg/325 mg [Ethel-7.5] Med 01/27/19 22:54 Discontinued 1 each PO Q6H PRN PRN Lidocaine 5% Patch [Lidoderm] Med 01/28/19 09:00 Discontinued 1 each TOP DAILY Metoprolol Succinate E.r. [Toprol Xl] Med 01/28/19 09:00 Discontinued 50 mg PO DAILY Oxybutynin [Ditropan] Med 01/28/19 09:00 Discontinued 5 mg PO DAILY Quetiapine [Seroquel] Med 01/28/19 21:00 Discontinued 25 mg PO HS Quetiapine [Seroquel] Med 01/27/19 21:32 Discontinued 25 mg PO NOW ONE SIMVAstatin [Zocor] Med 01/28/19 21:00 Discontinued 20 mg PO HS Spironolactone [Aldactone] Med 01/28/19 09:00 Discontinued 12.5 mg PO DAILY Warfarin [Coumadin] Med 01/28/19 21:00 Discontinued 3 mg PO QHS Oxygen Device Routine Oth 01/27/19 22:54 Completed Telemetry [OM.EQ] Routine Oth 01/27/19 22:54 Active Transfer/Admit Order [TRANSFER] Routine Transfer 01/27/19 22:32 Completed Result Diagrams: 01/31/19 06:28 01/31/19 06:28 - REASSESSMENT Reassessment #1 Time Reassessed: 22:00 (Dr. Phillips discussed pt w/hospitalist) Status: unchanged - XRAY 1 XRAY: Bilateral XRAY Study: Chest (rt), Ribs Impression: Abnormal ( EXAM: RIBS UNILAT W/PA CHEST RIGHT INDICATION: chest wall pain TECHNIQUE: 4 views COMPARISON: Chest radiograph dated 12/28/2018 FINDINGS: There are nondisplaced or minimally displaced fractures involving the anterior aspect of the eighth and ninth ribs on the right. No other discrete rib fracture is identified. There is no evidence of pneumothorax or pleural fluid collection. There is cardiomegaly and there is pulmonary venous congestion that is similar to previous studies. IMPRESSION: 1.Fractures of the anterior eighth and ninth ribs on the right. 2.Cardiomegaly and pulmonary venous congestion that is similar to prior studies. Electronically signed by Raghu Naqvi 01/27/2019 8:52 PM) Comparison with other Films: changes noted 2 XRAY: Bilateral XRAY Study: Pelvis, Hip Impression: Abnormal (EXAM: XRAY HIP W/PELVIS BILAT 3-4VWS INDICATION: hip pain TECHNIQUE: 6 views COMPARISON: 10/02/2014 FINDINGS: There are severe degenerative changes involving the lower lumbar spine. The bones are osteopenic throughout. There are degenerative changes at both acetabular roofs. There is a helical nail a medullary meño associated with the right hip indicating prior ORIF. There is surrounding heterotopic ossification. No definite acute fracture, dislocation, or significant intrinsic osseous lesion is appreciated. IMPRESSION: Chronic changes as described. No definite acute osseous abnormality. Electronically signed by Raghu Naqvi 01/27/2019 8:54 PM) Departure - Departure Date of Disposition Decision: 01/27/19 Time of Disposition Decision: 23:08 DIAGNOSIS: Rib fractures Disposition: ADMITTED INPATIENT 09 Certified Medical Emergency: Emergent Condition: Stable - Critical Care Note This patient required my direct & personal management of CC.: No Attestation - Physician/ ALAINA Attestation Patient care was provided by Advanced Practice Provider:: No The physician spent face to face time with patient:: Yes Advanced Practice Provider documentation review:: Supervising physician onsite and consulted in the evaluation and care of this patient. The physician did have a face to face encounter with the patient. This chart was documented by the indicated scribe, (Lorena Naqvi Scribe) and accurately reflects the services I performed and decisions made by me, Miguel Phillips DO, as attested by the provider's signature.
== END 2019-01-31 18:10 | DRG 184 ==
LOC: ED 19:31 → 3N 22:54 → SUATTDRO 22:54 → INTOOBSV 22:54 → SUATTDRO 01-28 11:51
PROVIDERS: ATTEND Internal Medicine
CPT/HCPCS: 71101; 73522; 80048; 80053; 85014; 85018; 85025; 85610; 94761; 96360; 99285; A9270; J7040

== ENCOUNTER 2019-02-11 16:55 | Inpatient (IN) ==
--- NOTE | 2019-02-11 17:39 | Diag Imaging Result Doc PS360 ---
EXAM: CHEST-2 VIEWS - 02/11/2019 HISTORY: sob TECHNIQUE: Chest two views COMPARISON: 01/27/2019 one view chest 07/28/2019 chest two views FINDINGS: There is stable cardiomegaly. There are bilateral primarily interstitial opacities which are most prominent on the right. There are possibly tiny pleural effusions. There is no pneumothorax identified. IMPRESSION: Pulmonary edema versus pneumonitis, most prominent on the right. Electronically signed by Chente Abdul 02/11/2019 5:37 PM
[2019-02-11] MEDS ORDERED: DUONEB (A & A) INH ONE (21:19)
[2019-02-11 21:46] LABS: BASO# 0.05 X1000 (0.0-0.2); BASO% 0.4 % (0.0-0.8); EOS% 1.6 % (0.0-10.0); HEMATOCRIT 38.2 % (37.0-47.0); HEMOGLOBIN 11.8 g/dL (12.0-16.0); IMM GRAN# 0.09 X1000 (0.0-0.04); IMM GRAN% 0.7 % (0.0-0.5); LYMPH# 0.72 X1000 (1.2-3.4); LYMPH% 5.8 % (20.5-51.1); MCHC 30.9 g/dL (33-37); MCV 90.7 FL (81-99); MONO# 0.65 X1000 (0.11-0.59); MONO% 5.3 % (1.7-9.3); MPV 9.9 FL (7.4-10.4); NEUT# 10.63 X1000 (1.4-6.5); NEUT% 86.2 % (42.2-75.2); PLT 543 X1000 (130-400); RBC 4.21 XMIL (4.2-5.4); RDW 16.9 % (11.5-14.5); WBC 12.34 X1000 (4.8-10.8)
[2019-02-11 21:54] LABS: INR 3.98
[2019-02-11 21:55] LABS: PTT 75.1 Seconds (22.3-41.8)
[2019-02-11 21:57] LABS: PROTIME 41.6 Seconds (11.0-16.0)
[2019-02-11 21:59] LABS: ALB/GLOB RATIO 1.2; ALBUMIN 3.6 g/dL (3.5-5.0); CALCIUM 8.8 mg/dL (8.8-10.2); CREATININE 1.1 mg/dL (0.5-0.9); POTASSIUM 3.7 mmol/L (3.5-5.1); TOTAL BILIRUBIN 0.66 mg/dL (0.20-1.00); TOTAL PROTEIN 6.6 g/dL (6.3-8.3)
[2019-02-11 22:03] LABS: URINE SOURCE CLEAN CATCH
[2019-02-11 22:21] LABS: BILIRUBIN URINE NEGATIVE (NEGATIVE); BLOOD URINE TRACE (NEGATIVE); COLOR YELLOW; GLUCOSE URINE NEGATIVE (NEGATIVE); KETONE URINE NEGATIVE (NEGATIVE); LEUKOCYTES URINE NEGATIVE (NEGATIVE); NITRITE URINE NEGATIVE (NEGATIVE); PH URINE 5.5; PROTEIN URINE 100 mg/dL (NEGATIVE); SP GRAVITY URINE 1.018; TURBIDITY URINE CLEAR (CLEAR); UROBILINOGEN URINE NORMAL (NORMAL)
[2019-02-11 22:23] LABS: UR EPITHELIAL CELLS <10 /HPF (<10); URINE BACTERIA NEGATIVE /HPF; URINE RBC <10 /HPF (<10); URINE WBC <10 /HPF (<10)
[2019-02-11] MEDS ORDERED: VANCOMYCIN 1 GM/NS 1 GM/250 ML IVPB IV ONE (23:38)
--- NOTE | 2019-02-11 23:38 | PROVIDER DOCUMENTATION ---
This chart was entered by Mariah Orellana Scribe, acting as scribe for Jorje Mccracken MD. HPI-Respiratory General - General Chief Complaint: Shortness of Breath Stated Complaint: SOB Time Seen by Provider: 02/11/19 20:40 Source: patient Allergies/Adverse Reactions: Patient Allergies Allergy/AdvReac Type Severity Reaction Status Date / Time Penicillins Allergy Intermediate RASH Verified 02/11/19 21:33 Home Medications: Home Medication List Medication Instructions Recorded Confirmed Last Taken Type SIMVAstatin [Zocor] 20 mg PO HS 10/19/13 01/27/19 01/26/19 History Gabapentin 300 mg PO QHS 12/21/16 01/27/19 01/26/19 History Oxybutynin [Ditropan] 5 mg PO DAILY 12/21/16 01/27/19 01/27/19 History Melatonin 5 mg PO QHS 09/29/17 01/27/19 01/26/19 History Digoxin 0.5 tab PO DAILY 11/25/18 01/27/19 01/27/19 History Folic Acid 1 mg PO DAILY 11/25/18 01/27/19 01/27/19 History Polyethylene Glycol 3350 [Miralax] 17 gm PO BID PRN PRN 11/25/18 01/27/19 11/25/18 History Sennosides/Docusate Sodium 2 ea PO BID #120 tab 11/28/18 01/27/19 01/27/19 Rx [Pericolace] Spironolactone [Aldactone] 12.5 mg PO DAILY #90 tab 11/28/18 01/27/19 01/27/19 Rx Metoprolol Succinate E.r. [Toprol 50 mg PO DAILY #30 tab 12/28/18 01/27/19 01/27/19 Rx Xl] Quetiapine Fumarate [Seroquel] 25 mg PO HS 01/27/19 01/27/19 01/26/19 History Hydrocodone/Acetaminophen [[place] 1 tab PO Q4H PRN PRN #40 tab 01/31/19 Unknown Rx 10-325 Tablet] Doxycycline 100 mg PO BID #12 tab 02/16/19 Unknown Rx Lisinopril [Zestril] 2.5 mg PO DAILY #30 tab 02/16/19 Unknown Rx Warfarin Sodium [Coumadin] 2.5 mg PO QHS #30 tab 02/16/19 Unknown Rx Furosemide [Lasix] 40 mg PO DAILY #30 tab 02/17/19 Unknown Rx Loperamide [Imodium] 2 mg PO PRN PRN cap 02/17/19 Unknown Rx - History of Present Illness-Resp Nature of Presenting Problem: Pt is 58/F presenting to ED w/ SOB that started last night. Pt broke ribs 2 weeks ago and was in the hospital and then in rehab. Now at home at [facility] w/ caregivers coming to her home. Caregivers at bedside sts that she had some SOB last night and today. She sts that she has had some chest pains today substernally and intermittently rated 7/10 on the pain scale. hx of [place], was taking Warfarin and was taken off of it 2 days prior because of multiple falls. She is now taking 2 Aspirin instead. Quality of Pain: reports: pressure (SOB), other Severity in ED: reports: moderate Onset/Duration: reports: 24 hours ago Timing: reports: still present Cough Quality/Degree: reports: no cough Episode Frequency: no prior episodes Modifying Factors: improves with: oxygen Associated Symptoms: reports: chest pain/soreness, shortness of breath, short of breath. denies: cough Similar Symptoms Previously?: No Recently seen or treated by another doctor?: No Review of Systems - Adult - REVIEW OF SYSTEMS - ADULT Constitutional: reports: no symptoms reported. denies: chills, fever Eyes: reports: no symptoms reported Ears, Nose, Mouth & Throat: reports: no symptoms reported Cardiovascular: reports: chest pain. denies: edema Respiratory: reports: shortness of breath. denies: cough Gastrointestinal: reports: no symptoms reported. denies: abdominal pain, diarrhea, nausea, vomiting Genitourinary: reports: no symptoms reported Musculoskeletal: reports: no symptoms reported Integumentary: reports: no symptoms reported Neurological: reports: no symptoms reported. denies: dizziness/vertigo, headache/migraines Psychiatric: reports: no symptoms reported Endocrine: reports: no symptoms reported Hematologic/Lymphatic: reports: no symptoms reported Allergic/Immunologic: reports: no symptoms reported All Other Systems: Reviewed and Negative Past History - Adult - PAST MEDICAL HISTORY-ADULT Review of Records: reports: Old Records Reviewed, Nursing Assessment Review, Medications Reviewed, Social history reviewed & non-contributory. Major Childhood Illnesses: reports: denies history Cardiovascular: reports: A-Fib, HTN, hyperlipidemia Respiratory: reports: denies history Gastrointestinal: reports: denies history Obstetrical/Gynecological: reports: denies history Genitourinary: reports: denies history Musculoskeletal: reports: arthritis, spinal fracture Neurological: reports: denies history Endocrine/Immune: reports: denies history Other Conditions: reports: denies history - PRIOR SURGERIES/PROCEDURES Surgical/Procedure History: reports: cholecystectomy, orthopedic (extremity) (left wrist), other (Bladder Tack) - PRIOR HOSPITALIZATIONS Prior Hospitalizations: reports: none - IMMUNIZATION STATUS Childhood Immunizations: See Nurse Assessment Flu Vaccine: See Nurse Assessment - FAMILY HISTORY Family History: reviewed, not pertinent - SOCIAL HISTORY Smoking: denies, non-smoker Substance Use: none/never Alcohol Use Frequency: never Living Situation: alone Physical Exam-General - PHYSICAL EXAM-ADULT Initial Vital Signs Reviewed: Yes - CONSTITUTIONAL General Appearance: appears well, alert, mild distress - EYES Eyes: PERRL/EOMI, pink conjunctivae - HEAD, EARS, NOSE, MOUTH & THROAT HENMT: normocephalic/atraumatic, moist mucous membranes, normal ENT inspection, TMs normal, pharynx normal - NECK Neck: non-tender, full range of motion, supple, normal inspection - RESPIRATORY Respiratory: respiratory distress (mild respiratory distress) - CARDIOVASCULAR Cardiovascular: no edema, tachycardia (106), irregularly irregular - GASTROINTESTINAL (ABDOMEN) Abdominal Exam: normal bowel sounds, non tender, soft - LYMPHATIC Lymphatic: no adenopathy - MUSCULOSKELETAL Back Exam: normal inspection, no CVA tenderness, no vertebral tenderness Extremity: normal range of motion, non-tender, normal gait, normal inspection, no pedal edema - SKIN Integumentary: normal color, warm/dry - NEUROLOGIC Neurologic: grossly normal - PSYCHIATRIC Psych/Mental Status: normal mood/affect, normal thought content, normal thought process, oriented x 3 - HEART Score HEART Score: History: Slightly Suspicious HEART Score: ECG: Non-Specific Repolarization Disturbance/LBBB/PM HEART Score: Age: > or = 65 Years HEART Score: Risk Factors for Atherosclerotic Disease: > or = 3 Risk Factors or History of Atherosclerotic Disease HEART Score: Troponin: < or = Normal Limit Total HEART Score:: 5 Progress - PLAN OF CARE/RESULTS Progress/Plan/Lab Results: 02/11/19 21:32 Blood Culture - Final Blood NO GROWTH AFTER 5 DAYS 02/11/19 21:10 Blood Culture - Final Blood NO GROWTH AFTER 5 DAYS Orders Category Date Time Status Admit - [facility] Routine AdmDCTranf 02/12/19 02:26 Active Bedrest [Activity Type] ORDERED Care 02/12/19 02:29 Completed Daily Weights 0500 Care 02/12/19 02:34 Active Nursing- MD Consult Request ROUTINE Care 02/12/19 02:48 Completed Saline Loc NOW Care 02/11/19 21:17 Completed Saline Loc NOW Care 02/12/19 02:30 Active Vital Signs Order Q 4-HR ASSESS Care 02/12/19 02:28 Active Z-Document. for Tele Applied ORDERED Care 02/12/19 03:05 Completed Physician/Provider Consults Routine Cons 02/12/19 02:48 Ordered Heart Healthy Diet Diet 02/12/19 02:30 Active CHEST-2 VIEWS [RAD] Stat Exams 02/11/19 17:[address] ANGIOGRM PULMONARY ARTERIES [CT] Stat Exams 02/11/19 21:46 Completed cxr [CHEST-1 VIEW] [RAD] Routine Exams 02/12/19 02:45 Completed BLOOD CULTURE [BLDCUL] Stat Lab 02/11/19 21:32 Completed CBC WITH DIFF [HEME] Routine Lab 02/13/19 06:00 Completed CBC WITH ELECTRONIC DIFF [HEME] Stat Lab 02/11/19 21:10 Completed CK PROFILE [SP CHEM] Lab 02/12/19 05:40 Completed CK PROFILE [SP CHEM] Stat Lab 02/11/19 21:10 Completed COMPREHENSIVE METABOLIC PANEL [CHEM] Routine Lab 02/13/19 06:00 Completed COMPREHENSIVE METABOLIC PANEL [CHEM] Stat Lab 02/11/19 21:10 Completed DIGOXIN [TDM] Routine Lab 02/13/19 06:00 Completed FREE T4 Routine Lab 02/12/19 05:40 Completed LACTATE, PLASMA [CHEM] Stat Lab 02/11/19 21:10 Completed PROCALCITONIN [LOPEZ] Routine Lab 02/12/19 02:43 Completed PROTIME WITH INR [COAG] Stat Lab 02/11/19 21:10 Completed PROTIME WITH INR [COAG] Stat Lab 02/12/19 05:40 Completed PTT [COAG] Stat Lab 02/11/19 21:10 Completed PTT [COAG] Stat Lab 02/12/19 05:40 Completed SPUTUM CULTURE WITH GRAM STAIN [RM] Routine Lab 02/12/19 02:35 Uncollected TROPONIN T Lab 02/12/19 05:40 Completed TROPONIN T Stat Lab 02/11/19 21:10 Completed TSH Routine Lab 02/13/19 06:00 Completed URINALYSIS W/POSS RFLX CULT [URINALYSIS] Stat Lab 02/11/19 21:55 Completed Albuterol 2.5MG/Ipratrop 0.5MG [Duoneb (A & A)] Med 02/11/19 21:19 Discont inued 3 ml INH NOW ONE Aztreonam [Azactam] 2 gm Med 02/11/19 23:39 Discontinued 0.9% Sodium Chloride Inj [Ns] 100 ml IV NOW Digoxin [Lanoxin] Med 02/12/19 09:00 Active 62.5 microgm PO DAILY Folic Acid Med 02/12/19 09:00 Active 1 mg PO DAILY Furosemide [Lasix] Med 02/12/19 02:45 Discontinued 40 mg IV Q12H Gabapentin [Neurontin] Med 02/12/19 21:00 Active 300 mg PO QHS Hydrocodone/APAP 10 mg/325 mg [[place]-10] Med 02/12/19 02:39 Active 1 each PO Q4H PRN PRN LISINOpril [Prinivil] Med 02/12/19 09:00 Active 2.5 mg PO DAILY Levofloxacin 500 mg/D5w [Levaquin 500 mg/D5w] Med 02/12/19 02:45 Active 500 mg in 100 ml IV Q24H Linezolid 600 mg/D5w [Zyvox 600 mg/D5w] Med 02/12/19 02:45 Discontinued 600 mg in 300 ml IV Q12H Meropenem [Merrem] 500 mg Med 02/12/19 02:45 Discontinued 0.9% Sodium Chloride Inj [Ns] 50 ml IV Q8H Metoprolol Succinate E.r. [Toprol Xl] Med 02/12/19 09:00 Active 50 mg PO DAILY Omeprazole [Prilosec] Med 02/12/19 07:00 Discontinued 40 mg PO DAILY@0700 Oxybutynin [Ditropan] Med 02/12/19 09:00 Active 5 mg PO DAILY Quetiapine [Seroquel] Med 02/12/19 21:00 Active 25 mg PO HS SIMVAstatin [Zocor] Med 02/12/19 21:00 Active 20 mg PO HS Spironolactone [Aldactone] Med 02/12/19 09:00 Discontinued 12.5 mg PO DAILY Vancomycin 1 gm/Ns Med 02/11/19 23:38 Discontinued 1 gm in 250 ml IV NOW Warfarin [Coumadin] Med 02/12/19 21:00 Discontinued 3 mg PO QHS Aerosol Treatments Routine Oth 02/11/19 21:23 Completed Aerosol Treatments Stat Oth 02/11/19 21:23 Completed Telemetry [OM.EQ] Routine Oth 02/12/19 03:05 Active EKG [EKG] Stat Ther 02/11/19 21:19 Draft Transfer/Admit Order [TRANSFER] Routine Transfer 02/12/19 02:27 Completed A/P: Pulmonary edema, and RUL pneumonia . will admit for diuresis and IV antibiotics vanc and zosyn. Result Diagrams: 02/15/19 06:05 02/17/19 05:59 - EKG 1 Time of EKG reading by physician:: 21:23 EKG Read and Signed by:: Jorje Mccracken EKG Interpretation (*Must complete 3 of following elements*): Abnormal (Atrial fibrillation with rapid ventricular response. Left axis deviation. Nonspecific intraventricular block Cannot rule out Anterior infarct, age undetermined. T wave abnormality, consider lateral ischemia, Abnormal ECG) Rate: 111 Rhythm: Atrial fibrillation [place]: left QRS: normal [place] Interval: normal ST Wave: normal - XRAY 1 XRAY Study: Chest Impression: Abnormal ([facility] [address], [address], [place] [address] Department of Imaging Patient: KARYN HUBBARD Date: 02/11/19#: [id number] : 1930DM Status: PRE ERAcct#: [id number] Age/Sex: 88/FRoom/Bed: Loc: ED Ordering Physician: Milvia Landis MD Family Physician: None,PCP Reason for Procedure: sob Signed EXAM: CHEST-2 VIEWS - 02/11/2019 HISTORY: sob TECHNIQUE: Chest two views COMPARISON: 01/27/2019 one view chest 07/28/2019 chest two views FINDINGS: There is stable cardiomegaly. There are bilateral primarily interstitial opacities which are most prominent on the right. There are possibly tiny pleural effusions. There is no pneumothorax identified. IMPRESSION: Pulmonary edema versus pneumonitis, most prominent on the right. Electronically signed by Chente Abdul 02/11/2019 5:37 PM 02/11/19 1739 Interpreting Physician: Chente Abdul MD Dictated Date/Time: 02/11/19 1736 cc: Milvia Landis MD; None,PCP) - CT/MRI 1 CT Study: Thorax Impression: Abnormal (No acute pulmonary embolism, , no AA, moderate cardiomegaly, small right pleural effusion, no pnuemo, interstial and aveveolar edmea, RUL [place]) - CONSULTS/PCP/HOSPITALIST Notification #1 *Consult/PCP/Hospitalist*: Dr Contreras Time Discussed: 11:30 Consult Disposition: Admit Departure - Departure Date of Disposition Decision: 02/11/19 Time of Disposition Decision: 23:37 DIAGNOSIS: Right upper lobe pneumonia, Pulmonary edema Disposition: ADMITTED INPATIENT 09 Certified Medical Emergency: Emergent Condition: Stable - Critical Care Note This patient required my direct & personal management of CC.: No Attestation - Physician/ ALAINA Attestation Patient care was provided by Advanced Practice Provider:: No The physician spent face to face time with patient:: Yes Advanced Practice Provider documentation review:: Supervising physician onsite and consulted in the evaluation and care of this patient. The physician did have a face to face encounter with the patient. This chart was documented by the indicated scribe, (Mariah Orellana Scribmino) and accurately reflects the services I performed and decisions made by me, Jorje Mccracken MD, as attested by the provider's signature.
[2019-02-11] MEDS ORDERED: AZACTAM 2 GM in NS 100 ML IV ONE (23:39)
[2019-02-12] MEDS ORDERED: MERREM 500 MG in NS 50 ML IV SCH (02:45)
[2019-02-12] MEDS: LEVAQUIN 500 MG/D5W 500 MG/100 ML IVPB IV SCH (03:32)
[2019-02-12] MEDS: ZYVOX 600 MG/D5W 600 MG/300 ML IVPB IV SCH ×2 (03:33→15:06)
--- NOTE | 2019-02-12 03:44 | HISTORY AND PHYSICAL ---
CHIEF COMPLAINT: Atypical chest pain for about 1 day. HISTORY OF PRESENT ILLNESS: Ms Sol Huizar is an 88-year-old female, and she does have a history of congestive heart failure, atrial fibrillation, gastroesophageal reflux disease, hypertension, as well as a history of recurrent falls. She presented to the hospital because of chest pain which she has had for about 1 day. She describes the pain as being across her chest and pressure-like. On a scale of 0 to 10, about 7 to 8/10, constant, and nonradiating. She has had associated shortness of breath and no palpitations. She has also had a nonproductive cough. X-ray done at the time of presentation showed evidence of pulmonary edema versus pneumonitis, most prominent on the right side. The patient was recently in the hospital. She was admitted on 01/27/2019 and discharged on 01/31/2019. During that hospital stay, she was noted to have fractures involving the right 8th and 9th ribs as well as having multiple falls. The patient was discharged to a nursing home facility. She was seen and evaluated in the ER. She has now been admitted to the floor for further management. PAST MEDICAL HISTORY: Chronic atrial fibrillation, hypertension, hyperlipidemia, polycythemia rubra vera, congestive heart failure, ejection fraction of about 35%, as well as severe mitral regurgitation. PAST SURGICAL HISTORY: She has had right hip surgery as well as cholecystectomy. ALLERGIES: She is allergic to penicillin. SOCIAL HISTORY: No history of cigarette smoking. No alcohol or drug use. Resides at [facility]. FAMILY HISTORY: Noncontributory. HOME MEDICATIONS INCLUDE: 1. Simvastatin 20 mg p.o. at bedtime. 2. Gabapentin 300 mg p.o. at bedtime. 3. Oxybutynin 5 mg p.o. daily. 4. Warfarin 3 mg p.o. at bedtime. 5. Melatonin 5 mg p.o. at bedtime. 6. Lasix 20 mg p.o. daily. 7. Digoxin 0.5 mg p.o. daily. 8. Folic acid 1 mg p.o. daily. 9. MiraLAX 17 g twice a day. 10. Carmina-Colace twice a day. 11. Aldactone 12.5 g p.o. daily. 12. Metoprolol 50 mg p.o. daily. 13. Seroquel 25 mg p.o. at bedtime. 14. [place] 10/325 every 4 hours p.r.n. REVIEW OF SYSTEMS: Constitutional: No fever. Cardiovascular: See history of present illness. GI: No nausea, vomiting, diarrhea, or constipation. No abdominal pains. : No dysuria. Musculoskeletal: She does have joint pains. Hematology: She is on anticoagulation with warfarin. Endocrinology: She does not have diabetes or thyroid disease. PHYSICAL EXAMINATION: VITAL SIGNS ARE FOLLOWS: Temperature is 97.7 degrees, pulse 106, respiratory 16, blood pressure 132/74, oxygen saturation is 94%. HEENT: She is atraumatic, normocephalic. She is anicteric. Extraocular movements intact. No oral lesions noted. NECK: No lymphadenopathy or thyromegaly. CARDIOVASCULAR: S1, S2. Irregular. RESPIRATORY SYSTEM: Evidence of good air entry bilaterally. ABDOMEN: Soft, nontender. No masses felt. EXTREMITIES: No evidence of significant edema. CENTRAL NERVOUS SYSTEM: No obvious focal deficits noted. LABS: WBC is 12.35, hematocrit is 38.2 with a platelet count of 543,000. INR is 3.98. Sodium 143, potassium 3.7, chloride is 104, bicarb is 24, BUN is 23, creatinine is 1.1. IMAGING: X-ray of the chest shows evidence of pulmonary edema versus pneumonitis, most prominent on the right. ASSESSMENT AND PLAN: 1. Acute systolic congestive heart failure. Start patient on diuretics. Monitor intakes and outputs, as well as daily weights. Maintain patient on TIFFANI inhibitor, continue beta brionna, continue spironolactone. 2. Chronic atrial fibrillation. Continue digoxin as well as beta brionna. The patient's INR level is elevated and, as such, we will hold off on warfarin at this time. We will check the patient's thyroid function test. Maintain patient on telemetry. 3. Healthcare-associated pneumonia. Obtain sputum culture as well as blood cultures. Start patient on empiric antibiotics. 4. Hypertension. Continue current antihypertensive regimen. 5. Gastroesophageal reflux disease. Maintain patient on proton pump inhibitor. 6. Severe mitral regurgitation. Consult with Cardiology. 7. Deep vein thrombosis prophylaxis. The patient is on warfarin. 8. Gastrointestinal prophylaxis, proton pump inhibitor. cc: Ortega Contreras MD
[2019-02-12] MEDS: LASIX IV SCH ×2 (03:46→14:12)
[2019-02-12 06:51] LABS: INR 3.85
[2019-02-12 06:52] LABS: PTT 62.4 Seconds (22.3-41.8)
[2019-02-12 06:55] LABS: PROTIME 40.4 Seconds (11.0-16.0)
[2019-02-12] MEDS ORDERED: PRILOSEC PO SCH (07:00)
--- NOTE | 2019-02-12 07:43 | Diag Imaging Result Doc PS360 ---
EXAM: CHEST-1 VIEW HISTORY: chf, possible pneumonia TECHNIQUE: Chest single view COMPARISON: 02/11/2019 FINDINGS: The lungs are well expanded. There are increased interstitial markings in both lungs. These are most pronounced in the right upper lobe. Heart is enlarged. No pleural effusions identified. There is bronchiectasis in the lungs. IMPRESSION: There is likely a combination of fibrosis and bronchiectasis with either mild pulmonary edema or pneumonia. Electronically signed by Alec iFerro 02/12/2019 7:40 AM
--- NOTE | 2019-02-12 07:51 | Diag Imaging Result Doc PS360 ---
EXAM: CT ANGIOGRM PULMONARY ARTERIES HISTORY: sob, stopped warfarin 3 days ago TECHNIQUE: CT chest with intravenous contrast. Pulmonary arterial protocol. MIP images obtained. COMPARISON: 10/28/2018 FINDINGS: There is a small right-sided pleural effusion measuring 1.1 cm posteriorly and inferiorly in the midline with a smaller left pleural effusion. The vessels are small than on the prior study. The heart remains enlarged. Prominent atherosclerosis. No aneurysmal dilatation to the thoracic aorta. Normal opacification of the pulmonary arteries and their main branches. There is vascular distention. Mildly prominent mediastinal nodes have not increased in size compared to the prior study. There is basilar atelectasis and there may be underlying infiltrates. IMPRESSION: 1.No pulmonary emboli 2.Cardiomegaly with pulmonary edema and small effusions consistent with congestive failure 3.Stable mildly prominent nodes 4.Prominent atherosclerosis. 5.A preliminary report was given at 11:16 PM 02/11/2019 This exam was performed using automated exposure control, adjustment of mA or kV according to patient size, and/or use of iterative reconstruction technique. Electronically signed by Alec Fierro 02/12/2019 7:49 AM
[2019-02-12] MEDS ORDERED: ALDACTONE PO SCH (09:00)
[2019-02-12] MEDS: TOPROL XL PO SCH (11:29)
[2019-02-12] MEDS: DITROPAN PO SCH (11:30)
[2019-02-12] MEDS: FOLIC ACID PO SCH (11:30)
[2019-02-12] MEDS: PRINIVIL PO SCH (11:30)
[2019-02-12] MEDS: LANOXIN PO SCH (11:31)
[2019-02-12 12:15] LABS: AGAP 11; BUN 17 mg/dL (8-22); CALCIUM 8.3 mg/dL (8.8-10.2); CHLORIDE 103 mmol/L (98-107); COSMO 285; CREATININE 0.7 mg/dL (0.5-0.9); ESTIMATED GFR > 60; GLUCOSE 139 mg/dL (70-104); SODIUM 141 mmol/L (136-145); TCO2 27 mmol/L (25-35)
[2019-02-12] MEDS ORDERED: POTASSIUM CHLORIDE 20% LIQUID PO ONE (14:09)
[2019-02-12] MEDS: MERREM 500 MG in NS 50 ML IV SCH ×2 (14:12→21:44)
[2019-02-12] MEDS: NORCO-10 PO PRN ×2 (14:14→21:50)
--- NOTE | 2019-02-12 14:42 | CARDIOLOGY CONSULTATION ---
DATE: 02/12/2019 REASON FOR CONSULTATION: Congestive heart failure. SUBJECTIVE: Ms. Huizar is an 88-year-old lady with history of LV dysfunction, congestive heart failure, atrial fibrillation as well as history of recurrent fall. She came to the emergency room with increasing shortness of breath and left-sided chest discomfort. There was no associated palpitations or syncope. She also has had nonproductive cough. X-rays showed pulmonary edema versus pneumonitis. She was recently in the hospital and discharged on 01/31/2019. During the hospital stay she was noted to have had fractures involving the 8th and 9th ribs from having had multiple falls. The patient was discharged to custodial facility. REVIEW OF SYSTEM: A 14-point review of system was done GI System there is no history of nausea, vomiting, diarrhea. There is no history of hematemesis or melena. Central nervous system: No focal weakness to suggest a CVA, transient ischemic attack. System: There is no dysuria or hematuria. PAST MEDICAL HISTORY: 1. Congestive heart failure. 2. Atrial fibrillation. 3. LV dysfunction. 4. Gastroesophageal reflux disease. 5. Hypertension. 6. History of frequent falls. HOME MEDICATIONS: 1. Simvastatin 20. 2. Gabapentin. 3. Oxybutynin. 4. Coumadin as directed. 5. Lasix 20. 6. Digoxin 0.5. 7. MiraLAX. 8. Aldactone 12.5. 9. Metoprolol 50. 10. Seroquel. 1. [place]. PHYSICAL EXAMINATION: Blood pressure was 132/74 first and second heart sounds were heard. There was faint systolic murmur. Respiratory: Bibasilar inspiratory crepitations. Abdomen: Soft, nontender. There was no guarding or rigidity. Bowel sounds were heard. Central nervous system: Alert and was moving all 4 extremities. Examination of extremities revealed no pedal edema. LABORATORY EXAMINATION: Sodium 141, potassium 3.0, BUN 17 creatinine 0.7. Cardiac enzymes were negative. CT angiogram was done which revealed no pulmonary emboli. There was pulmonary edema consistent with congestive heart failure. Mild prominent lymph nodes were noted. ASSESSMENT AND PLAN: Sol Huizar is an 88-year-old lady with history of hypertension, systolic heart failure, atrial fibrillation, history of recent falls presents with increasing shortness of breath and chest pain. She was recently admitted and discharged. She is known to have fractured ribs as well. Cardiac enzymes are negative. We will manage her medically. We will get an echocardiogram to reassess cardiac and valvular function. 1. As far as heart failure is concerned, she is on Lasix 40 mg IV twice a day, in addition to lisinopril 2.5 mg a day. 2. She is on metoprolol 50 mg. would recommend continuing the same. 3. She is on spironolactone 12.5. We will increase the spironolactone to 25 mg a day. 4. She has also been started on antibiotics. I have not made any changes. 5. Potassium was. 3.0. Would recommend potassium supplement today. We will give her 40 mEq p.o. Check a BMP and serum magnesium levels in the morning. 6. Thank you for the consult. cc: Braden Lopez MD
[2019-02-12] MEDS ORDERED: NS 500 ML ONE (15:13)
[2019-02-12] MEDS ORDERED: COUMADIN PO SCH (21:00)
[2019-02-12] MEDS: NEURONTIN PO SCH (21:44)
[2019-02-12] MEDS: ZOCOR PO SCH (21:44)
[2019-02-12] MEDS: SEROQUEL PO SCH (21:45)
[2019-02-13] MEDS: NORCO-10 PO PRN ×4 (01:56→23:27)
[2019-02-13] MEDS: LASIX IV SCH ×2 (02:00→14:31)
[2019-02-13] MEDS: LEVAQUIN 500 MG/D5W 500 MG/100 ML IVPB IV SCH (02:01)
[2019-02-13] MEDS: ZYVOX 600 MG/D5W 600 MG/300 ML IVPB IV SCH ×2 (03:51→14:32)
[2019-02-13] MEDS: MERREM 500 MG in NS 50 ML IV SCH ×3 (05:50→21:04)
[2019-02-13 07:18] LABS: BASO# 0.03 X1000 (0.0-0.2); BASO% 0.3 % (0.0-0.8); EOS# 0.41 X1000 (0.0-0.7); EOS% 4.7 % (0.0-10.0); HEMATOCRIT 35.6 % (37.0-47.0); IMM GRAN# 0.04 X1000 (0.0-0.04); IMM GRAN% 0.5 % (0.0-0.5); LYMPH# 1.16 X1000 (1.2-3.4); LYMPH% 13.2 % (20.5-51.1); MCH 28.5 PG (27-31); MCHC 30.9 g/dL (33-37); MCV 92.2 FL (81-99); MONO# 0.57 X1000 (0.11-0.59); MONO% 6.5 % (1.7-9.3); MPV 10.2 FL (7.4-10.4); NEUT# 6.59 X1000 (1.4-6.5); NEUT% 74.8 % (42.2-75.2); PLT 432 X1000 (130-400); RBC 3.86 XMIL (4.2-5.4); RDW 16.7 % (11.5-14.5)
[2019-02-13 07:20] LABS: ALB/GLOB RATIO 1.4; ALBUMIN 3.2 g/dL (3.5-5.0); CALCIUM 8.2 mg/dL (8.8-10.2); CREATININE 0.9 mg/dL (0.5-0.9); POTASSIUM 3.8 mmol/L (3.5-5.1); TOTAL BILIRUBIN 0.7 mg/dL (0.20-1.00); TOTAL PROTEIN 5.5 g/dL (6.3-8.3)
--- NOTE | 2019-02-13 07:41 | EKG Report ---
Test Performed on : 02/11/2019 9:23:06 PM Test Reason : sob Blood Pressure : / mmHG Vent. Rate : 111 BPM Atrial Rate : 104 BPM P-R Int : 000 ms QRS Dur : 140 ms QT Int : 298 ms P-R-T Axes : 000 -49 132 degrees QTc Int : 405 ms Atrial fibrillation. with rapid ventricular response. Left axis deviation Nonspecific intraventricular block Cannot rule out Anterior infarct (cited on or before 26-DEC-2018) T wave abnormality, consider lateral ischemia Abnormal ECG When compared with ECG of 26-DEC-2018 10:59, QRS axis shifted left Questionable change in initial forces of Lateral leads T wave inversion no longer evident in Inferior leads T wave inversion now evident in Lateral leads Unconfirmed Result
[2019-02-13 07:54] LABS: BANDS 6 % (0-1); EOS 6 % (1-10); LYMPHS 22 % (21-51); MONO 4 % (1-9); SEGS 62 % (42-75)
[2019-02-13] MEDS: LANOXIN PO SCH (08:41)
[2019-02-13] MEDS: PRINIVIL PO SCH (08:42)
[2019-02-13] MEDS: ALDACTONE PO SCH (08:42)
[2019-02-13] MEDS: FOLIC ACID PO SCH (08:42)
[2019-02-13] MEDS: DITROPAN PO SCH (08:42)
[2019-02-13] MEDS: TOPROL XL PO SCH (08:42)
[2019-02-13 09:41] LABS: INR 3.59; PROTIME 38.3 Seconds (11.0-16.0)
[2019-02-13 13:50] LABS: URINE SOURCE CLEAN CATCH
[2019-02-13 13:58] LABS: BILIRUBIN URINE NEGATIVE (NEGATIVE); BLOOD URINE NEGATIVE (NEGATIVE); COLOR YELLOW; GLUCOSE URINE NEGATIVE (NEGATIVE); KETONE URINE NEGATIVE (NEGATIVE); LEUKOCYTES URINE NEGATIVE (NEGATIVE); NITRITE URINE NEGATIVE (NEGATIVE); PROTEIN URINE NEGATIVE (NEGATIVE); SP GRAVITY URINE 1.004; TURBIDITY URINE CLEAR (CLEAR); UR EPITHELIAL CELLS <10 /HPF (<10); URINE BACTERIA NEGATIVE /HPF; URINE RBC <10 /HPF (<10); URINE WBC <10 /HPF (<10); UROBILINOGEN URINE NORMAL (NORMAL)
--- NOTE | 2019-02-13 14:26 | PROGRESS NOTE ---
DATE: 02/13/2019 SUBJECTIVE: Patient is lying comfortably in bed. As per the patient, she was able to stand up and sit at the bedside commode with assistance. Also, she was able to stand up from the bed and go to the wheelchair. She does not walk, and she mostly uses a wheelchair for transportation. She is still complaining of shortness of breath. Her INR is elevated at 3.5. We have been holding the warfarin, and we will continue with the same management until the INR is between 2 and 3, when we can put her back on that medication. OBJECTIVE: Vital Signs: Temperature 97.6 degrees, pulse 67, respiratory rate 19, blood pressure 104/59, oxygen saturation 99 on 4 L of nasal cannula. HEENT: Head normocephalic, no trauma. PERRLA. Neck: Supple. No JVD. Central trachea. Chest: Decreased breath sounds globally with bilateral rhonchi. Abdomen: Soft, nontender, nondistended. No hepatosplenomegaly. Extremities: No edema, no clubbing, no cyanosis. Neurological: This patient is alert and oriented x3. She does have generalized weakness, but no focal deficits. LABORATORY: WBC 8.8, hemoglobin 11, hematocrit 35.6, platelets 432,000. Sodium 144, potassium 3.8, chloride 100, bicarbonate 31, BUN 15, creatinine 0.9, glucose 124, calcium 8.2, magnesium 1.7, albumin 3.2. PTT 38.3, INR 3.5. ASSESSMENT AND PLAN: 1. Acute systolic congestive heart failure. We will continue with diuretics. Cardiology Department evaluated this patient and following this patient closely. We will continue following their recommendations. 2. Chronic atrial fibrillation. Continue with digoxin as well as beta brionna. This patient's INR is supratherapeutic, so we have been holding her warfarin at this time, but we will resume this treatment once the INR is therapeutic. 3. Healthcare-associated pneumonia. Continue with antibiotics. 4. Hypertension. Continue with the same treatment. Stable. 5. Gastroesophageal reflux disease. Continue with proton pump inhibitors. 6. Severe mitral regurgitation. Continue following the recommendation of Cardiology Department. I do not think she has any kind of symptoms at this moment. 7. Deep vein thrombosis prophylaxis. This patient's INR is supratherapeutic. We will continue with warfarin once the INR is more stable. Overall, this patient is doing better. I have requested physical therapy to try to help her to go back to her baseline. INR is supratherapeutic. We have been holding her warfarin until the INR is therapeutic so we can restart this patient on this medication. I believe probably she can be discharged in the next 48 to 72 hours once she is feels better, and the INR is therapeutic. She lives in an assisted living, and probably she will go back to that place unless she needs rehabilitation. cc: Johnathon Corcoran MD
[2019-02-13] MEDS: CENTRUM SILVER PO SCH (15:44)
[2019-02-13] MEDS: NEURONTIN PO SCH (21:04)
[2019-02-13] MEDS: SEROQUEL PO SCH (21:04)
[2019-02-13] MEDS: ZOCOR PO SCH (21:04)
[2019-02-14] MEDS: LEVAQUIN 500 MG/D5W 500 MG/100 ML IVPB IV SCH (03:50)
[2019-02-14] MEDS: LASIX IV SCH ×2 (03:51→13:49)
[2019-02-14] MEDS: MERREM 500 MG in NS 50 ML IV SCH ×3 (05:13→22:11)
[2019-02-14] MEDS: NORCO-10 PO PRN ×3 (05:13→22:11)
[2019-02-14] MEDS: ZYVOX 600 MG/D5W 600 MG/300 ML IVPB IV SCH ×2 (05:57→17:41)
[2019-02-14 06:37] LABS: BASO# 0.02 X1000 (0.0-0.2); BASO% 0.2 % (0.0-0.8); EOS# 0.57 X1000 (0.0-0.7); HEMATOCRIT 34.7 % (37.0-47.0); HEMOGLOBIN 10.7 g/dL (12.0-16.0); IMM GRAN# 0.03 X1000 (0.0-0.04); IMM GRAN% 0.4 % (0.0-0.5); LYMPH# 1.05 X1000 (1.2-3.4); LYMPH% 12.9 % (20.5-51.1); MCH 28.1 PG (27-31); MCHC 30.8 g/dL (33-37); MCV 91.1 FL (81-99); MONO# 0.67 X1000 (0.11-0.59); MONO% 8.2 % (1.7-9.3); NEUT# 5.83 X1000 (1.4-6.5); NEUT% 71.3 % (42.2-75.2); PLT 379 X1000 (130-400); RBC 3.81 XMIL (4.2-5.4); RDW 16.7 % (11.5-14.5); WBC 8.17 X1000 (4.8-10.8)
[2019-02-14 06:47] LABS: INR 2.62; PROTIME 29.9 Seconds (11.0-16.0)
[2019-02-14 07:14] LABS: CREATININE 1.2 mg/dL (0.5-0.9); POTASSIUM 3.4 mmol/L (3.5-5.1)
[2019-02-14] MEDS: LANOXIN PO SCH (09:14)
[2019-02-14] MEDS: ALDACTONE PO SCH (09:14)
[2019-02-14] MEDS: FOLIC ACID PO SCH (09:14)
[2019-02-14] MEDS: PRINIVIL PO SCH (09:14)
[2019-02-14] MEDS: CENTRUM SILVER PO SCH (09:15)
[2019-02-14] MEDS: DITROPAN PO SCH (09:15)
[2019-02-14] MEDS: TOPROL XL PO SCH (09:15)
--- NOTE | 2019-02-14 15:17 | PROGRESS NOTE ---
DATE: 02/14/2019 SUBJECTIVE: Patient is resting comfortable in the bed. No complaints at this time. OBJECTIVE: Vitals: Temperature 98.3 degrees, heart rate 84, respiratory rate 18, blood pressure 119/63, O2 saturation 97% on 2 L nasal cannula. General Examination: This is a chronically ill- appearing and frail 88-year-old female, lying in bed, in no acute disease. HEENT: Head is normocephalic, atraumatic. Neck: No JVD noted. No carotid bruits. No lymphadenopathy. No thyromegaly. Cardiovascular: S1, S2 heard. No murmurs, gallops, or rubs. Regular rate and rhythm. Respiratory: Clear bilaterally to auscultation. No work of breathing or using accessory muscles. Abdomen: Soft. Nontender to palpation. Bowel sounds present. No organomegaly. Extremities: No clubbing, cyanosis, or edema. Peripheral pulses present in both legs. Neurological: Patient alert and oriented x3. Moves 4 extremities. LABORATORY DATA: Reviewed. ASSESSMENT AND PLAN: 1. Acute systolic congestive heart failure. Patient is on Lasix 40 mg IV q.12 h. Clinically, this patient reports feeling better. Cardiology is following this patient. We will follow recommendations. 2. Chronic atrial fibrillation. Currently this patient is on metoprolol and digoxin. Heart rate is under control. The patient has been on digoxin, and INR is supratherapeutic. We have held warfarin, and so far the INR today is 2.62 from 3.59 yesterday. At this point, we will continue holding warfarin. 3. Healthcare-associated pneumonia. Patient is on levofloxacin and meropenem, day #2 of treatment. We will continue with same management. White cell count is normal. 4. Hypertension. Blood pressure is under control. We will continue with same management. 5. Gastroesophageal reflux disease. We will continue with Protonix. 6. Severe mitral regurgitation. Cardiology following this patient. 7. Deep vein thrombosis prophylaxis. Patient's INR is supratherapeutic. I do not think we need to provide any prophylaxis for this. DISPOSITION.: The patient is working with Physical Therapy. INR is supratherapeutic, but getting better. I think whenever the patient's INR is back to target we can restart with the smaller doses of warfarin. Physical Therapy is also working with this patient, awaiting their evaluation to see this patient is able to go back to assisted living facility or if she needs to go to rehabilitation. cc: Ryan Silva MD
[2019-02-14] MEDS: NEURONTIN PO SCH (22:11)
[2019-02-14] MEDS: ZOCOR PO SCH (22:11)
[2019-02-14] MEDS: SEROQUEL PO SCH (22:12)
[2019-02-15] MEDS: LASIX IV SCH ×2 (04:24→15:02)
[2019-02-15] MEDS: LEVAQUIN 500 MG/D5W 500 MG/100 ML IVPB IV SCH (04:24)
[2019-02-15 06:26] LABS: BASO# 0.03 X1000 (0.0-0.2); BASO% 0.4 % (0.0-0.8); EOS# 0.73 X1000 (0.0-0.7); EOS% 8.7 % (0.0-10.0); HEMOGLOBIN 11.4 g/dL (12.0-16.0); IMM GRAN# 0.06 X1000 (0.0-0.04); IMM GRAN% 0.7 % (0.0-0.5); LYMPH# 1.56 X1000 (1.2-3.4); LYMPH% 18.5 % (20.5-51.1); MCH 28.1 PG (27-31); MCHC 30.8 g/dL (33-37); MCV 91.1 FL (81-99); MONO# 0.64 X1000 (0.11-0.59); MONO% 7.6 % (1.7-9.3); MPV 9.9 FL (7.4-10.4); NEUT# 5.39 X1000 (1.4-6.5); NEUT% 64.1 % (42.2-75.2); PLT 412 X1000 (130-400); RBC 4.06 XMIL (4.2-5.4); RDW 16.8 % (11.5-14.5); WBC 8.41 X1000 (4.8-10.8)
[2019-02-15 06:39] LABS: INR 1.66; PROTIME 20.9 Seconds (11.0-16.0)
[2019-02-15] MEDS: MERREM 500 MG in NS 50 ML IV SCH ×3 (06:43→22:06)
[2019-02-15 06:54] LABS: CALCIUM 8.6 mg/dL (8.8-10.2); CREATININE 1.3 mg/dL (0.5-0.9); POTASSIUM 4.2 mmol/L (3.5-5.1)
[2019-02-15] MEDS: CENTRUM SILVER PO SCH (08:11)
[2019-02-15] MEDS: ZYVOX 600 MG/D5W 600 MG/300 ML IVPB IV SCH ×2 (08:11→19:42)
[2019-02-15] MEDS: FOLIC ACID PO SCH (08:11)
[2019-02-15] MEDS: LANOXIN PO SCH (08:12)
[2019-02-15] MEDS: DITROPAN PO SCH (08:12)
[2019-02-15] MEDS: TOPROL XL PO SCH (08:13)
[2019-02-15] MEDS: ALDACTONE PO SCH (08:14)
[2019-02-15] MEDS: PRINIVIL PO SCH (08:14)
[2019-02-15] MEDS: NORCO-10 PO PRN ×2 (10:34→22:05)
--- NOTE | 2019-02-15 15:58 | PROGRESS NOTE ---
DATE: 02/15/2019 INTERVAL HISTORY: The patient still with some slight dyspnea, but is significantly improved. Complaining primarily of right toe pain at this point. Patient reports she had an area opened or debrided by Podiatry fairly recently. No acute events overnight. No other new complaints. REVIEW OF SYSTEMS: Twelve point review of systems negative except as per interval history. LABORATORY: WBC 8.4, hemoglobin 11.4, hematocrit 37.0, and platelets 412,000. INR 1.66. Sodium 140, potassium 4.2, BUN 36, creatinine 1.3, and glucose 113. VITALS: T-max 98.3 degrees, pulse 71, respirations 16, blood pressure 109/54, and O2 saturation 99% on 2 L by nasal cannula. PHYSICAL EXAMINATION: General: No acute distress. Elderly appearing. Vitals: As above. HEENT: Normocephalic, atraumatic. Moist mucous membranes. No cervical adenopathy. Cardiovascular: Regular rate and rhythm. No murmurs, rubs, or gallops. Pulmonary: Clear to auscultation bilaterally at this point. No wheezing, rales, or rhonchi. Abdomen: Soft, nontender, nondistended. Bowel sounds positive. Extremities: Peripheral pulses intact. No clubbing or cyanosis. Neurologic: Cranial nerves grossly intact. Mild global weakness, but no focal deficits identified. Psychiatric: Normal mood and affect. Awake, alert, and oriented x3. Skin: The patient with right medial 1st toe wound. The area is slightly tender to touch, but no surrounding erythema, induration, or fluctuance. Minimal serous drainage noted. No purulence. Both sides of right ankle with small ulcers, which were bandaged. No new rashes or lesions identified. ASSESSMENT AND PLAN: 1. Acute on chronic systolic congestive heart failure. Last known EF approximately 35 improving significantly with intravenous Lasix. Continue intravenous Lasix one more day, but may be able to transition to p.o. soon. Cardiology on board and following. 2. Atrial fibrillation well controlled on metoprolol and digoxin. INR now subtherapeutic so restarting warfarin. 3. Pneumonia. Patient on possible pneumonia. The patient on Merrem and Levaquin. Continue that for now, and given rapid improvement can likely transition to p.o. antibiotic either Levaquin or doxycycline over the next 24 to 48 hours. 4. Hypertension. Blood pressure reasonably controlled. Continue current management. 5. Gastroesophageal reflux disease. Continue PPI. 6. Mitral regurgitation. Recommend regular follow-up with Cardiology as an outpatient. 7. Right first toe ulcer. Reportedly, this is surgical wound after debridement by Podiatry. No signs of active infection currently, but will monitor closely. 8. Disposition. Patient's respiratory symptoms improving rapidly. INR now subtherapeutic restarting Coumadin. Likely home with home health in the next 24 to 48 hours if she continues to improve and no other acute issues develop.
[2019-02-15] MEDS: SEROQUEL PO SCH (21:00)
[2019-02-15] MEDS: NEURONTIN PO SCH (21:00)
[2019-02-15] MEDS: ZOCOR PO SCH (21:00)
[2019-02-16] MEDS: LASIX IV SCH (02:38)
[2019-02-16] MEDS: LEVAQUIN 500 MG/D5W 500 MG/100 ML IVPB IV SCH (02:38)
[2019-02-16] MEDS: NORCO-10 PO PRN ×3 (04:36→22:43)
[2019-02-16] MEDS: MERREM 500 MG in NS 50 ML IV SCH ×3 (05:10→23:23)
[2019-02-16 07:05] LABS: INR 1.47; PROTIME 18.9 Seconds (11.0-16.0)
[2019-02-16 07:24] LABS: CALCIUM 8.9 mg/dL (8.8-10.2); CREATININE 1.4 mg/dL (0.5-0.9); POTASSIUM 4.1 mmol/L (3.5-5.1)
[2019-02-16] MEDS: LANOXIN PO SCH (09:54)
[2019-02-16] MEDS: PRINIVIL PO SCH (09:55)
[2019-02-16] MEDS: FOLIC ACID PO SCH (09:55)
[2019-02-16] MEDS: TOPROL XL PO SCH (09:55)
[2019-02-16] MEDS: ALDACTONE PO SCH (09:55)
[2019-02-16] MEDS: CENTRUM SILVER PO SCH (09:56)
[2019-02-16] MEDS: ZYVOX 600 MG/D5W 600 MG/300 ML IVPB IV SCH ×2 (09:56→20:46)
[2019-02-16] MEDS: DITROPAN PO SCH (09:56)
--- NOTE | 2019-02-16 11:28 | Diag Imaging Result Doc PS360 ---
EXAM: CHEST-2 VIEWS 02/16/2019 HISTORY: dyspnea TECHNIQUE: A and lateral chest COMMENT: There is cardiomegaly. The patchy opacities throughout both lungs present on 02/12/2019 have improved. There is still some residual interstitial and alveolar opacity. IMPRESSION: Improved pulmonary edema. Electronically signed by Bryant Cortez 02/16/2019 11:25 AM
--- NOTE | 2019-02-16 17:23 | PROGRESS NOTE ---
DATE: 02/16/2019 INTERVAL HISTORY: Patient still reports feeling weak but dyspnea resolved. Saturating well on room air. No new complaints. No acute events overnight. REVIEW OF SYSTEMS: Twelve point review of systems negative except as per interval history. LABS: INR 1.47. Basic metabolic panel essentially stable. VITAL SIGNS: T-max 98.7 degrees, pulse 67, respirations 18, blood pressure 113/53, O2 saturation 100% on 2 L by nasal cannula. IMAGING: Chest x-ray with markedly improved pulmonary edema. PHYSICAL EXAMINATION: General: No acute distress. Chronically ill appearing. Vital signs: As above. HEENT: Normocephalic, atraumatic. Moist mucous membranes. No cervical adenopathy. Cardiovascular: Regular rate and rhythm. No murmurs, rubs, or gallops. Pulmonary: Very faint bibasilar crackles but largely clear to auscultation at this point. Excellent air entry. No increased work of breathing. No accessory muscle use. Abdomen: Soft, nontender, nondistended. Bowel sounds positive. Extremities: Peripheral pulses intact. No clubbing or cyanosis. Neurologic: Cranial nerves grossly intact. Mild global weakness, but no focal deficits. The patient maneuvers herself in bed with no difficulty. Assessed patient's gait. She is able to rise to her feet with minimal assistance. Gait slightly unsteady, but able to walk short distances. Psychiatric: Normal mood and affect. Awake, alert, oriented x3. Skin: Toe wounds remain bandaged. ASSESSMENT AND PLAN: 1. Acute on chronic systolic congestive heart failure. Last known EF approximately 35. Essentially back to baseline. Saturating well on room air. Chest x-ray markedly improved. No signs of respiratory distress. Discussed with Cardiology. They would like to monitor patient 1 more day. Transitioning to p.o. Lasix. 2. Atrial fibrillation. Well controlled on metoprolol and digoxin. Restarted warfarin. Monitor INR. 3. Possible pneumonia. Patient on Merrem and Levaquin. Transitioning to p.o. doxycycline at discharge. 4. Hypertension. Blood pressure with reasonable control. Continue current management. 5. Gastroesophageal reflux disease. Continue PPI. 6. Mitral regurgitation. Recommend regular follow up with Cardiology as an outpatient. 7. Right first toe ulcer, post surgical after debridement by Podiatry. No signs of infection currently. 8. Disposition. Patient's respiratory status essentially baseline at this point. The patient is somewhat weak, but this appears to be largely baseline as patient mostly uses a wheelchair to get around at home. She has sitters essentially around the clock and some assistance from her sons. Cardiology desires to observe for 1 more night. Likely discharge home tomorrow.
[2019-02-16] MEDS: SEROQUEL PO SCH (20:46)
[2019-02-16] MEDS: ZOCOR PO SCH (20:46)
[2019-02-16] MEDS: NEURONTIN PO SCH (20:46)
[2019-02-16] MEDS ORDERED: COUMADIN PO SCH (21:00)
[2019-02-17] MEDS: LEVAQUIN 500 MG/D5W 500 MG/100 ML IVPB IV SCH (03:29)
[2019-02-17 06:49] LABS: INR 1.26; PROTIME 16.8 Seconds (11.0-16.0)
[2019-02-17] MEDS: MERREM 500 MG in NS 50 ML IV SCH (06:54)
[2019-02-17 07:14] LABS: CALCIUM 8.7 mg/dL (8.8-10.2); CREATININE 1.2 mg/dL (0.5-0.9); POTASSIUM 4.6 mmol/L (3.5-5.1)
[2019-02-17] MEDS: ZYVOX 600 MG/D5W 600 MG/300 ML IVPB IV SCH (08:09)
[2019-02-17] MEDS: PRINIVIL PO SCH (08:54)
[2019-02-17] MEDS: FOLIC ACID PO SCH (08:55)
[2019-02-17] MEDS: NORCO-10 PO PRN (08:56)
[2019-02-17] MEDS: LANOXIN PO SCH (08:56)
[2019-02-17] MEDS: DITROPAN PO SCH (08:56)
[2019-02-17] MEDS: TOPROL XL PO SCH (08:57)
[2019-02-17] MEDS ORDERED: ALDACTONE PO SCH (09:00)
[2019-02-17] MEDS ORDERED: LASIX IV SCH (09:00)
[2019-02-17] MEDS ORDERED: IMODIUM PO PRN (09:42)
[2019-02-17 13:44] VITALS: BP 119/47
--- NOTE | 2019-02-18 05:33 | DISCHARGE SUMMARY ---
ADMISSION DATE: 02/12/2019 DISCHARGE DATE: 02/17/2019 PRIMARY CARE PHYSICIAN: Dr. Loja. ADMISSION DIAGNOSES: 1. Acute systolic congestive heart failure. 2. Chronic atrial fibrillation. 3. Healthcare-associated pneumonia. 4. Hypertension. 5. Gastroesophageal reflux disease. 6. Severe mitral regurgitation. DISCHARGE DIAGNOSES: 1. Acute on chronic systolic congestive heart failure. 2. Atrial fibrillation, controlled. 3. Possible pneumonia. 4. Hypertension. 5. Gastroesophageal reflux disease. 6. Mitral regurgitation. 7. Right 1st toe ulcer postsurgical after debridement by Podiatry. CONSULTATIONS: Cardiology. SUMMARY OF FINDINGS: This is an 88-year-old female who presented to the hospital due to chest pain that she had for 1 day, described it as pressure and rated it a 7/10 that was constant and nonradiating with shortness of breath, but no palpitations. Chest x-ray showed the presentation of pulmonary edema versus pneumonitis. She was admitted, placed on diuretics, placed on empiric antibiotics. Cardiology increased her spironolactone to 25 mg daily. Continued her diuretic, continued her beta-brionna, supplemented her potassium with 40 mEq of potassium. She is back to her baseline now and it is felt that she can safely be discharged home with home health services. DISCHARGE MEDICATIONS: Include digoxin 125 mcg, half a tablet daily, prescription for doxycycline 100 mg p.o. b.i.d., #12 with no refills, folic acid 1 mg p.o. daily, Lasix 40 mg p.o. daily, #30 with 1 refill, gabapentin 300 mg p.o. at bedtime, [place] 10 one p.o. q.4 hours p.r.n., lisinopril 2.5 mg p.o. daily, #30 with 1 refill, loperamide 2 mg p.o. p.r.n., melatonin 5 mg p.o. at bedtime, metoprolol 50 mg p.o. daily, oxybutynin 5 mg p.o. daily, MiraLAX 17 g p.o. b.i.d. p.r.n., quetiapine fumarate 25 mg p.o. at bedtime, Carmina-Colace 2 p.o. b.i.d., simvastatin 20 mg p.o. at bedtime, Aldactone 12.5 mg p.o. daily, Coumadin 12.5 mg p.o. at bedtime, #30 with 1 refill. FOLLOW-UP: She has appointments scheduled with Dr. Loja on 02/27/2019 at 11:15 a.m.; with Dr. Lopez on 02/21/2019 at 10:30 a.m.; and will have home health services. All discharge instructions have been reviewed with the patient and she verbalizes understanding. TIME SPENT WITH PATIENT: This a 35 minute discharge. Dictated by DAINEL Shukla for Kody Guerrier MD cc: DANIEL Shukla MD
== END 2019-02-17 15:07 | disposition home or self-care (01) | DRG 291 ==
LOC: SUPCPDRO → ED 16:55 → 4N 02-12 07:05 → SUATTDRO 02-12 07:05
PROVIDERS: ATTEND Internal Medicine
CPT/HCPCS: 71010; 71020; 71045; 71046; 71275; 80048; 80053; 80162; 81001; 82550; 83605; 83735; 84145; 84439; 84443; 84484; 85025; 85610; 85730; 87040; 93005; 93306; 93923; 94640; 94761; 96365; 96366; 96367; 96375; 97162; 97530; 99285; A9270; J1940; J1956; J2020; J2185; J3370; J7040; Q9967; S0073

== ENCOUNTER 2019-08-07 14:31 | Inpatient (IN) ==
[2019-08-07 15:29] LABS: BASO# 0.11 X1000 (0.0-0.2); BASO% 0.7 % (0.0-0.8); EOS# 0.14 X1000 (0.0-0.7); EOS% 0.9 % (0.0-10.0); HEMATOCRIT 46.6 % (37.0-47.0); HEMOGLOBIN 15.4 g/dL (12.0-16.0); IMM GRAN# 0.06 X1000 (0.0-0.04); IMM GRAN% 0.4 % (0.0-0.5); MCH 31.2 PG (27-31); MCV 94.3 FL (81-99); MONO# 1.01 X1000 (0.11-0.59); MONO% 6.4 % (1.7-9.3); MPV 10.6 FL (7.4-10.4); NEUT# 13.25 X1000 (1.4-6.5); NEUT% 84.6 % (42.2-75.2); PLT 479 X1000 (130-400); RBC 4.94 XMIL (4.2-5.4); RDW 15.7 % (11.5-14.5); WBC 15.67 X1000 (4.8-10.8)
--- NOTE | 2019-08-07 15:30 | EKG Report ---
Test Performed on : 08/07/2019 3:05:03 PM Test Reason : weakness Blood Pressure : / mmHG Vent. Rate : 060 BPM Atrial Rate : 052 BPM P-R Int : 000 ms QRS Dur : 136 ms QT Int : 384 ms P-R-T Axes : 000 -63 136 degrees QTc Int : 384 ms Atrial fibrillation. Left axis deviation Nonspecific intraventricular block Marked T wave abnormality, consider lateral ischemia Abnormal ECG When compared with ECG of 11-FEB-2019 21:23, Vent. rate has decreased BY 51 BPM T wave inversion more evident in Lateral leads Unconfirmed Result
[2019-08-07 15:34] LABS: INR 1.14; PROTIME 14.7 Seconds (11.0-16.0); PTT 27.6 Seconds (22.3-41.8)
--- NOTE | 2019-08-07 16:01 | Diag Imaging Result Doc PS360 ---
CHEST-2 VIEWS - 08/07/2019 INDICATION: Confusion COMPARISON: 05/15/2019 FINDINGS: Stable cardiomegaly. There is stable severe calcification of the mitral valve annulus. Lung volumes are low. There is some mild increased markings in the lung bases. This may reflect mild pulmonary edema. No dense consolidation. No pneumothorax or pleural effusion. IMPRESSION: Cardiomegaly. Slight increased markings in the lung bases may suggest mild interstitial pulmonary edema. Electronically signed by Leonardo Clarke 08/07/2019 3:59 PM
[2019-08-07 16:18] LABS: ALBUMIN 4.9 g/dL (3.5-5.0); CALCIUM 9.4 mg/dL (8.8-10.2); CREATININE 1.7 mg/dL (0.5-0.9); TOTAL BILIRUBIN 0.58 mg/dL (0.20-1.00); TOTAL PROTEIN 7.4 g/dL (6.3-8.3)
[2019-08-07 16:19] LABS: POTASSIUM 5.7 mmol/L (3.5-5.1)
--- NOTE | 2019-08-07 16:47 | Diag Imaging Result Doc PS360 ---
CT HEAD/C-SPINE W/O CONTRAST - 08/07/2019 INDICATION: Frequent falls; possible head injury; confusion COMPARISON: 01/24/2019 FINDINGS: Head CT: Stable diffuse cerebral atrophy. Stable advanced cerebral white matter chronic microvascular disease. No intracranial mass or hemorrhage. Stable chronic sinusitis of the right sphenoid sinus. Cervical spine: Stable reversal of the normal cervical lordosis. No fracture or subluxation. Stable advanced multilevel disc degeneration. Stable complete fusion at C5-C6. IMPRESSION: No acute injury. This exam was performed using automated exposure control, adjustment of mA or kV according to patient size, and/or use of iterative reconstruction technique Electronically signed by Leonardo Clarke 08/07/2019 4:45 PM
[2019-08-07] MEDS ORDERED: D5 NS 1,000 ML IV ONE (16:53)
[2019-08-07] MEDS ORDERED: HUMULIN R SUBQ ONE (16:53)
[2019-08-07] MEDS ORDERED: D50W SYRINGE IV ONE (16:53)
--- NOTE | 2019-08-07 16:59 | PROVIDER DOCUMENTATION ---
HPI-Neurological Disorder - General Chief Complaint: Weakness Stated Complaint: DR LOJA REFERRED Time Seen by Provider: 08/07/19 14:40 Source: family Allergies/Adverse Reactions: Patient Allergies Allergy/AdvReac Type Severity Reaction Status Date / Time Penicillins Allergy Intermediate RASH Verified 02/11/19 21:33 Home Medications: Home Medication List Medication Instructions Recorded Confirmed Last Taken Type SIMVAstatin [Zocor] 20 mg PO HS 10/19/13 01/27/19 01/26/19 History Gabapentin 300 mg PO QHS 12/21/16 01/27/19 01/26/19 History Oxybutynin [Ditropan] 5 mg PO DAILY 12/21/16 01/27/19 01/27/19 History Melatonin 5 mg PO QHS 09/29/17 01/27/19 01/26/19 History Digoxin 0.5 tab PO DAILY 11/25/18 01/27/19 01/27/19 History Folic Acid 1 mg PO DAILY 11/25/18 01/27/19 01/27/19 History Polyethylene Glycol 3350 [Miralax] 17 gm PO BID PRN PRN 11/25/18 01/27/19 11/25/18 History Sennosides/Docusate Sodium 2 ea PO BID #120 tab 11/28/18 01/27/19 01/27/19 Rx [Pericolace] Spironolactone [Aldactone] 12.5 mg PO DAILY #90 tab 11/28/18 01/27/19 01/27/19 Rx Metoprolol Succinate E.r. [Toprol 50 mg PO DAILY #30 tab 12/28/18 01/27/1901/07 Rx Xl] Quetiapine Fumarate [Seroquel] 25 mg PO HS 01/27/19 01/27/19 01/26/19 History Hydrocodone/Acetaminophen [[place] 1 tab PO Q4H PRN PRN #40 tab 01/31/19 Unknown Rx 10-325 Tablet] Doxycycline 100 mg PO BID #12 tab 02/16/19 Unknown Rx Lisinopril [Zestril] 2.5 mg PO DAILY #30 tab 02/16/19 Unknown Rx Warfarin Sodium [Coumadin] 2.5 mg PO QHS #30 tab 02/16/19 Unknown Rx Furosemide [Lasix] 40 mg PO DAILY #30 tab 02/17/19 Unknown Rx Loperamide [Imodium] 2 mg PO PRN PRN cap 02/17/19 Unknown Rx - History of Present Illness-Neuro Nature of Presenting Problem: The patient is an 88 yr old F, hx of atrial fibrillation, presenting today from her PCP's office with her son, who reports altered mental status and weakness for the past 4-5 days. He reports that the patient is only oriented to self; has had incoherent speech, and has seemed more weak than is her baseline. The patient's son states that in the past, when she has acted like this; it has usually been due to a UTI. The pt was at her PCP's office today, and was sent to the ED because of this recent behavior. The patient denies any active chest or abdominal pain. Review of Systems - Adult - REVIEW OF SYSTEMS - ADULT Constitutional: reports: no symptoms reported Eyes: reports: no symptoms reported Ears, Nose, Mouth & Throat: reports: no symptoms reported Cardiovascular: reports: no symptoms reported Respiratory: reports: no symptoms reported Gastrointestinal: reports: no symptoms reported Genitourinary: reports: frequency Neurological: reports: see HPI, other (weakness, altered mental status) Psychiatric: reports: no symptoms reported Past History - Adult - PAST MEDICAL HISTORY-ADULT Review of Records: reports: Nursing Assessment Review Major Childhood Illnesses: reports: denies history Cardiovascular: reports: A-Fib, HTN, hyperlipidemia Respiratory: reports: denies history Gastrointestinal: reports: denies history Obstetrical/Gynecological: reports: denies history Genitourinary: reports: denies history Musculoskeletal: reports: arthritis, spinal fracture Neurological: reports: denies history Endocrine/Immune: reports: denies history Other Conditions: reports: denies history - PRIOR SURGERIES/PROCEDURES Surgical/Procedure History: reports: cholecystectomy, orthopedic (extremity) (left wrist), other (Bladder Tack) - PRIOR HOSPITALIZATIONS Prior Hospitalizations: reports: none - IMMUNIZATION STATUS Childhood Immunizations: See Nurse Assessment Flu Vaccine: See Nurse Assessment - FAMILY HISTORY Family History: reviewed, not pertinent Physical Exam- Neurological - Physical Exam-Neuro Initial Vital Signs Reviewed: Yes General Appearance: appears well, alert, no apparent distress Eye Exam: bilateral eye: normal inspection, EOMI HENMT: normocephalic/atraumatic Head Injury: no evidence of injury Respiratory: lungs clear, normal breath sounds Cardiovascular: regular rate, rhythm Abdominal Exam: normal bowel sounds, soft Neurologic: other (pt is alert, oriented to self, answers questions, but doesn't answer the exact questio asked; speech seems tangential) Integumentary: warm/dry Psych/Mental Status: normal mood/affect Progress - PLAN OF CARE/RESULTS Progress/Plan/Lab Results: Vital Signs - 8 hr 08/07/19 14:48 Temperature 97.8 F Pulse Rate 53 L Respiratory Rate 19 Blood Pressure 123/86 O2 Sat by Pulse Oximetry 98 Laboratory Results - last 24 hr 08/07/19 08/07/19 08/07/19 14:55 14:55 14:55 WBC 15.67 H RBC 4.94 Hgb 15.4 Hct 46.6 MCV 94.3 MCH 31.2 H MCHC 33.0 RDW Std Deviation 15.7 H Plt Count 479 H MPV 10.6 H Immature Gran % (Auto) 0.4 Neut % (Auto) 84.6 H Lymph % (Auto) 7.0 L [place] % (Auto) 6.4 Eos % (Auto) 0.9 Baso % (Auto) 0.7 Immature Gran # (Auto) 0.06 H Neut # (Auto) 13.25 H Lymph # (Auto) 1.10 L [place] # (Auto) 1.01 H Eos # (Auto) 0.14 Baso # (Auto) 0.11 PT INR PTT (Actin FS) Specimen Type Sample Site pH pCO2 pO2 HCO3 Base Excess Oxyhemoglobin ABG O2 Sat (Calculated) ABG O2 Saturation ABG Carboxyhemoglobin ABG Methemoglobin Saroj Test A-a O2 Difference Total Hemoglobin Lactate Blood Gas Modality FiO2 % Sodium 130 L Potassium 5.7 H Chloride 95 L Carbon Dioxide 16 L Anion Gap 19 BUN 77 H Creatinine 1.7 H Estimated GFR/1.73 m2 28 BUN/Creatinine Ratio 45 Glucose 392 H POC Glucose Calculated Osmolality 299 Calcium 9.4 Total Bilirubin 0.58 AST 16 ALT 16 Alkaline Phosphatase 85 Creatine Kinase Troponin T Gjt-[id number]-Cahbtyhhlsr Pept 5102 H Total Protein 7.4 Albumin 4.9 Globulin 2.5 Albumin/Globulin Ratio 2.0 Plasma Lactate 08/07/19 08/07/19 08/07/19 14:55 14:55 14:55 WBC RBC Hgb Hct MCV MCH MCHC RDW Std Deviation Plt Count MPV Immature Gran % (Auto) Neut % (Auto) Lymph % (Auto) [place] % (Auto) Eos % (Auto) Baso % (Auto) Immature Gran # (Auto) Neut # (Auto) Lymph # (Auto) [place] # (Auto) Eos # (Auto) Baso # (Auto) PT 14.7 INR 1.14 PTT (Actin FS) 27.6 Specimen Type Sample Site pH pCO2 pO2 HCO3 Base Excess Oxyhemoglobin ABG O2 Sat (Calculated) ABG O2 Saturation ABG Carboxyhemoglobin ABG Methemoglobin Saroj Test A-a O2 Difference Total Hemoglobin Lactate Blood Gas Modality FiO2 % Sodium Potassium Chloride Carbon Dioxide Anion Gap BUN Creatinine Estimated GFR/1.73 m2 BUN/Creatinine Ratio Glucose POC Glucose Calculated Osmolality Calcium Total Bilirubin AST ALT Alkaline Phosphatase Creatine Kinase 97 Troponin T 0.053 Dfr-K-Glicqtpglrg Pept Total Protein Albumin Globulin Albumin/Globulin Ratio Plasma Lactate 08/07/19 08/07/19 08/07/19 14:55 15:03 17:24 WBC RBC Hgb Hct MCV MCH MCHC RDW Std Deviation Plt Count MPV Immature Gran % (Auto) Neut % (Auto) Lymph % (Auto) [place] % (Auto) Eos % (Auto) Baso % (Auto) Immature Gran # (Auto) Neut # (Auto) Lymph # (Auto) [place] # (Auto) Eos # (Auto) Baso # (Auto) PT INR PTT (Actin FS) Specimen Type ARTERIAL Sample Site R BRACHIAL pH 7.36 pCO2 29 L pO2 83 HCO3 19.0 L Base Excess -7.5 L Oxyhemoglobin 94.8 L ABG O2 Sat (Calculated) 21.1 ABG O2 Saturation 97.8 ABG Carboxyhemoglobin 1.60 ABG Methemoglobin 1.5 Saroj Test YES A-a O2 Difference 30.0 Total Hemoglobin 15.8 Lactate 1.40 Blood Gas Modality ROOM AIR FiO2 % 21.0 Sodium Potassium Chloride Carbon Dioxide Anion Gap BUN Creatinine Estimated GFR/1.73 m2 BUN/Creatinine Ratio Glucose POC Glucose 373 H D Calculated Osmolality Calcium Total Bilirubin AST ALT Alkaline Phosphatase Creatine Kinase Troponin T Zyy-Q-Muotbnqpynu Pept Total Protein Albumin Globulin Albumin/Globulin Ratio Plasma Lactate 2.8 H Orders Category Date Time Status FSBS/Accucheck Result AC + HS Care 08/07/19 17:58 Active CHEST-2 VIEWS [RAD] Stat Exams 08/07/19 14:[address] HEAD/C-SPINE W/O CONTRAST [CT] Stat Exams 08/07/19 14:59 Completed ABG [RESP] Routine Lab 08/07/19 17:24 Completed ACETONE SERUM [CHEM] Stat Lab 08/07/19 15:13 Uncollected BLOOD CULTURE [BLDCUL] Stat Lab 08/07/19 17:36 Uncollected CBC WITH ELECTRONIC DIFF [HEME] Stat Lab 08/07/19 14:55 Completed CK PROFILE [SP CHEM] Stat Lab 08/07/19 14:55 Completed COMPREHENSIVE METABOLIC PANEL [CHEM] Stat Lab 08/07/19 14:55 Completed LACTATE, PLASMA [CHEM] Stat Lab 08/07/19 14:55 Completed PRO B-NATRIURETIC PEPTIDE Stat Lab 08/07/19 14:55 Completed PROTIME WITH INR [COAG] Stat Lab 08/07/19 14:55 Completed PTT [COAG] Stat Lab 08/07/19 14:55 Completed TROPONIN T Stat Lab 08/07/19 14:55 Completed TROPONIN T Stat Lab 08/07/19 17:20 Ordered URINALYSIS W/POSS RFLX CULT [URINALYSIS] Stat Lab 08/07/19 16:56 Uncollected URINALYSIS [URINALYSIS] Stat Lab 08/07/19 14:54 Uncollected 0.9% Sodium Chloride Inj [Ns] 1,000 ml Med 08/07/19 17:58 Active IV 999 mls/hr Dextrose 5%-0.9% NaCl Inj [D5 Ns] 1,000 ml Med 08/07/19 16:53 Discontinued IV 1,000 mls/hr Dextrose 50% Syringe [D50w Syringe] Med 08/07/19 16:53 Discontinued 50 ml IV NOW ONE Insulin Human Regular [Humulin R] Med 08/07/19 16:53 Discontinued 10 unit SUBQ NOW ONE Insulin Lispro [Humalog] Med 08/07/19 21:00 Ordered See Protocol SUBQ 0700,1100,1600,2100 Generalized Adult Illness >60 Stat Oth 08/07/19 14:53 Ordered EKG [EKG] Stat Ther 08/07/19 14:54 Draft EKG [EKG] Stat Ther 08/07/19 17:20 Ordered Transfer/Admit Order [TRANSFER] Routine Transfer 08/07/19 17:59 Ordered Result Diagrams: 08/07/19 14:55 08/07/19 14:55 - EKG 1 Time of EKG reading by physician:: 15:32 EKG Read and Signed by:: Francisco Smallwood EKG Interpretation (*Must complete 3 of following elements*): Abnormal Rate: 60 Rhythm: atrial fibrillation Merrick: left ST Wave: depressed (in leads V5, V6) - XRAY 1 XRAY Study: Chest Impression: Normal, See EMR Report - CT/MRI 1 CT Study: Head Impression: See EMR Report CT Results: no acute changes - CONSULTS/PCP/HOSPITALIST Notification #1 *Consult/PCP/Hospitalist*: Rosana Time Discussed: 17:00 (spoke with her in person, got pt moved from waiting room to treatment room for further eval) Consult Disposition: Admit Departure - Departure Date of Disposition Decision: 08/07/19 Time of Disposition Decision: 17:28 DIAGNOSIS: Weakness, Hyperkalemia Disposition: ADMITTED INPATIENT Certified Medical Emergency: Emergent Condition: Serious Referrals and Follow-Ups: Carlos Loja MD [Primary Care Provider] - - Critical Care Note This patient required my direct & personal management of CC.: No Attestation - Physician/ ALAINA Attestation Patient care was provided by Advanced Practice Provider:: No The physician spent face to face time with patient:: Yes Advanced Practice Provider documentation review:: Supervising physician onsite and consulted in the evaluation and care of this patient. The physician did have a face to face encounter with the patient.
[2019-08-07 17:33] LABS: ALLEN TEST YES; BE -7.5 mmoll (-3.0-3.0); BLOOD TYPE ARTERIAL; METHB 1.5 % (0.0-1.5); O2(CT) 21.1 mL/dL (15.0-23.0); O2HB 94.8 % (95.0-99.0); PCO2(98.6) 29 mmHg (35-45); PO2(98.6) 83 mmHg (60-100); SAMPLE BLOOD; SAO2 97.8 % (95.0-100.0); THB 15.8 g/dL (11.5-17.4); pH(98.6) 7.36 (7.35-7.45)
[2019-08-07 17:34] LABS: MODALITY ROOM AIR
[2019-08-07] MEDS ORDERED: NS 1,000 ML IV ONE (17:58)
[2019-08-07 18:39] LABS: URINE SOURCE CLEAN CATCH
[2019-08-07 18:42] LABS: BILIRUBIN URINE NEGATIVE (NEGATIVE); BLOOD URINE NEGATIVE (NEGATIVE); COLOR YELLOW; GLUCOSE URINE 70 mg/dL (NEGATIVE); KETONE URINE NEGATIVE (NEGATIVE); LEUKOCYTES URINE NEGATIVE (NEGATIVE); NITRITE URINE NEGATIVE (NEGATIVE); PROTEIN URINE NEGATIVE (NEGATIVE); SP GRAVITY URINE 1.013; TURBIDITY URINE HAZY (CLEAR); UR EPITHELIAL CELLS <10 /HPF (<10); URINE BACTERIA NEGATIVE /HPF; URINE RBC <10 /HPF (<10); URINE WBC <10 /HPF (<10); UROBILINOGEN URINE NORMAL (NORMAL)
--- NOTE | 2019-08-07 19:13 | HISTORY AND PHYSICAL ---
HISTORY OF PRESENT ILLNESS: Ms. Huizar is an 88-year-old patient of Dr. Carlos Loja. Family brought her in. She lives at [facility]. For the last 3 or 4 days, they have noticed increased confusion, does know where she is, disoriented, and kind of rambling speech. She does not seem to be any distress. That this has happened before on a couple of occasions, one time in the hospital; another time, they said they thought she was dehydrated. She has been on Seroquel. PAST MEDICAL HISTORY: 1. Chronic atrial fibrillation. Her doctor, I think, is Dr. Fallon who has followed her. 2. Hypertension. 3. Hyperlipidemia. 4. Polycythemia rubra vera. 5. Congestive heart failure, with ejection fraction last measured at 35%. 6. Severe mitral regurgitation. 7. She has had bladder infections in the past. 8. She has been diagnosed with diabetes mellitus type 2. 9. She is fallen about 3 times in the last 3 days. 10. She has fusion at C5-C6. I am not sure if that is surgical effusion or from arthritis. SURGICAL HISTORY: 1. Right hip surgery. 2. Cholecystectomy. 3. She had a meño in her right leg when she broke her right femur, I believe. SOCIAL HISTORY: No history of smoking or alcohol. She was at [facility]. I think she is now at [facility]. FAMILY HISTORY: Noncontributory. I do not know of any significant medical problems. REVIEW OF SYSTEMS: Really depending on the family. They have not reported any change in appetite or our weight. HEENT: They have not noticed any change in hearing or visual acuity. Respiratory: No increased work of breathing or dyspnea. Cardiovascular: No chest pain or tachy palpitation. GI and : They have not noticed any change in bowels or urologic habits. Immunologic/Hematologic: No significant history. Neurologic: Just mainly confusion. They feel she has had underlying dementia, although they do not feel like she has ever been fully diagnosed with that. She has had episode of delirium in the past. PHYSICAL EXAMINATION: VITAL SIGNS: Today, temperature 97.8 degrees, pulse 53, respirations 19, blood pressure 123/86. Weight 150 pounds. Height 5 feet 6 inches. GENERAL: She is awake. She is oriented to person, but that is it. She does not know where she is. She does not know what time it is. She does not know the month or the year, and is not able to really answer questions appropriately either, but she is pleasant. HEENT: Her pupils are equal. No distended neck veins. Conjunctiva pink. Sclera clear. LUNGS: Clear in all lung ross, anterolateral. No trouble with breathing. CARDIOVASCULAR: Regular rhythm and rate without murmur or S3. ABDOMEN: Soft. SKIN: Warm and dry. Without rashes. Oral and nasal mucosa: I do not appreciate any lesions. NEUROLOGIC: No focal deficits. Moving extremities well. Facial expressions unremarkable. LAB: White count 15,670, hematocrit 46, platelet count 479,000. Sodium 130, potassium 5.7, chloride 95, BUN 77, creatinine 1.7. Looking back at her creatinine, I see where it was 1.2 in February of this year, and it was 0.9 in the early part of February of this year. Chest x-ray revealed cardiomegaly, slight increased markings in lung bases, may suggest mild interstitial pulmonary edema. CT of head and spine: She has multilevel disk degeneration at C5, complete fusion at C5 and C6. CT of the head unremarkable. Blood gas: PH is 7.36, pCO2 29, pO2 is 83, O2 saturation is 97%. ASSESSMENT AND PLAN: Underlying dementia with delirium. Metabolic encephalopathy suspected. Looking at her list of medications, she is on digoxin 0.5 mg daily, so we will check a digoxin level. She is on doxycycline 100 mg twice a day. We are going to stop that. We will continue the folic acid at 1 mg daily. We are going to stop her Lasix. We are going to stop her gabapentin. She is taking 300 mg at bedtime. We are going to stop her Mes[place]. Right now, we will hold the Zestril as well. We will stop her Imodium and we will hold onto her melatonin. We will continue the Toprol-XL at 50 mg daily. We are going to stop the Ditropan at 5 mg daily. We will continue the MiraLAX at 17 g p.o. b.i.d. p.r.n. For right now, we are going to continue the Seroquel which is 25 mg at night to low dose. We will stop her Zocor for now. We will hold the Carmina-Colace and will stop the Aldactone. We will check a pro-time level. She is on Coumadin and it was 14.7 at present time, so I am assuming the Coumadin is for atrial fibrillation. The labs we are going to check are T4 and TSH. We are going to check a.m. cortisol. We are going to check a B12 and folate. We are going to check troponin and CK in the morning. Looking back at echocardiogram, she had an echocardiogram done in November of this year. Left ventricle appeared to be normal in size. Ejection fraction though was reduced to about 35%, global hypokinesis, similar to a study back in July. Mild pulmonic insufficiency. Moderate, possibly severe, left atrial enlargement. Tricuspid regurgitation was mild. RV systolic pressure about 46 mmHg. We are going to give her back a little bit of fluid. We will run normal saline in at 65 mL an hour, and recheck a portable chest x-ray in the morning. We will consult Dr. Darvin Fallon or his group to help follow along. The plan is to see if we can find something reversible for her delirium, in hopes that she can remain independent and stay at assisted living. cc: Saroj Moreau MD
[2019-08-07] MEDS ORDERED: ZOFRAN IV PRN (20:42)
[2019-08-07] MEDS ORDERED: NS 1,000 ML IV SCH (20:42)
[2019-08-07] MEDS: SEROQUEL PO ONE ×2 (21:09→21:10)
[2019-08-07] MEDS: SEROQUEL PO SCH (21:10)
[2019-08-07] MEDS: HUMALOG SUBQ SCH (22:42)
[2019-08-08] MEDS: HUMALOG SUBQ SCH ×4 (06:00→20:20)
--- NOTE | 2019-08-08 07:09 | Diag Imaging Result Doc PS360 ---
EXAM: CHEST-PORTABLE 08/08/2019 HISTORY: FU TECHNIQUE: AP portable at 0631 COMMENT: The inspiration is less optimal than on 08/07/2019. Otherwise are has been no significant change. There is minimal basilar atelectasis bilaterally. There is calcification the mitral valve annulus and mild cardiomegaly. IMPRESSION: Bibasilar atelectasis. Cardiomegaly. Electronically signed by Bryant Cortez 08/08/2019 7:07 AM
--- NOTE | 2019-08-08 07:13 | EKG Report ---
Test Performed on : 08/08/2019 07:03:41 AM Test Reason : afib Blood Pressure : / mmHG Vent. Rate : 080 BPM Atrial Rate : 061 BPM P-R Int : 000 ms QRS Dur : 132 ms QT Int : 358 ms P-R-T Axes : 000 -59 138 degrees QTc Int : 412 ms Atrial fibrillation. Left axis deviation Nonspecific intraventricular block Inferior infarct , age undetermined T wave abnormality, consider lateral ischemia Abnormal ECG When compared with ECG of 07-AUG-2019 15:05, (Unconfirmed) No significant change was found Confirmed by Mary MADDOX, Nishant Paul ([id number]) on 08/08/2019 11:59:24 AM
[2019-08-08 07:19] LABS: BASO# 0.09 X1000 (0.0-0.2); BASO% 0.6 % (0.0-0.8); EOS# 0.11 X1000 (0.0-0.7); EOS% 0.8 % (0.0-10.0); HEMATOCRIT 43.9 % (37.0-47.0); HEMOGLOBIN 14.4 g/dL (12.0-16.0); IMM GRAN# 0.04 X1000 (0.0-0.04); IMM GRAN% 0.3 % (0.0-0.5); INR 1.18; LYMPH# 1.09 X1000 (1.2-3.4); LYMPH% 7.5 % (20.5-51.1); MCH 30.8 PG (27-31); MCHC 32.8 g/dL (33-37); MCV 93.8 FL (81-99); MONO# 0.89 X1000 (0.11-0.59); MONO% 6.1 % (1.7-9.3); MPV 10.5 FL (7.4-10.4); NEUT# 12.37 X1000 (1.4-6.5); NEUT% 84.7 % (42.2-75.2); PLT 385 X1000 (130-400); PROTIME 15.2 Seconds (11.0-16.0); RBC 4.68 XMIL (4.2-5.4); RDW 15.5 % (11.5-14.5); WBC 14.59 X1000 (4.8-10.8)
[2019-08-08 07:31] LABS: HEMOGLOBIN A1C 10.7 % (4.8-6.0)
[2019-08-08 07:41] LABS: ALB/GLOB RATIO 1.6; ALBUMIN 4.2 g/dL (3.5-5.0); CALCIUM 8.7 mg/dL (8.8-10.2); CREATININE 1.6 mg/dL (0.5-0.9); MAGNESIUM 2.2 mg/dL (1.5-2.7); POTASSIUM 5.2 mmol/L (3.5-5.1); TOTAL BILIRUBIN 0.71 mg/dL (0.20-1.00); TOTAL PROTEIN 6.8 g/dL (6.3-8.3)
[2019-08-08 08:03] LABS: FREE T4 1.09 ng/dL (0.93-1.70); TSH 1.95 uIUmL (0.27-4.20)
[2019-08-08] MEDS: TOPROL XL PO SCH (08:26)
[2019-08-08] MEDS ORDERED: GEODON IM PRN ×2 (10:13→10:14)
[2019-08-08] MEDS ORDERED: STERILE WATER INJ. INJ PRN ×2 (10:13→10:14)
[2019-08-08] MEDS ORDERED: STERILE WATER INJ. INJ ONE ×2 (10:13→10:14)
[2019-08-08] MEDS ORDERED: GEODON IM ONE (10:14)
[2019-08-08] MEDS ORDERED: ATIVAN IV PRN (12:40)
--- NOTE | 2019-08-08 15:43 | Diag Imaging Result Doc PS360 ---
MRI BRAIN WO CONTRAST - 08/08/2019 INDICATION: cva COMPARISON: Head CT 08/07/2019 FINDINGS: There is significant patient motion artifact. Contrast could not be administered. There are a few scattered small foci of restricted diffusion in both cerebellar hemispheres. There are also some tiny foci of scattered restricted diffusion in the subcortical white matter mainly of the superior left cerebral hemisphere. Elsewhere, there is advanced chronic microvascular disease diffusely throughout the cerebrum and the cerebellum. No intracranial mass or hemorrhage. There is moderate diffuse cerebral atrophy. IMPRESSION: 1. 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 2. Advanced chronic disease. Electronically signed by Leonardo Clarke 08/08/2019 3:41 PM
--- NOTE | 2019-08-08 15:44 | PROGRESS NOTE ---
DATE: 08/08/2019 SUBJECTIVE: She seems pretty calm, but earlier today she was extremely agitated, combative, having to be held in her bed. OBJECTIVE: Vital Signs: Blood pressure is 108/37, heart rate of 91, respiratory rate of 16, temperature 97.9 degrees, satting 98% on room air. Cardiovascular: Regular rate and rhythm. Pulmonary: Bilateral breath sounds. Clear to auscultation. GI: Was soft, nontender, nondistended. Bowel sounds are positive. Extremity Exam: No clubbing or cyanosis. Lymphatic Exam: No peripheral edema. Neurological Exam: Nonfocal. LABS: White count is 14, hemoglobin and hematocrit 14 and 43, platelets 385. Sugar is 211. On average, her sugars have been 200s to 300s. She has an A1c of 10.7, so she has diabetes type 2 with some renal insufficiency. PROBLEM LIST: 1. Encephalopathy may be multifactorial. This could be dementia with delirium, and it may be related to her new onset diabetes or other issues going on at this point. 2. Atrial fibrillation which appears to be rate controlled. 3. New onset diabetes. We will continue to monitor her blood sugars. She is on sliding scale insulin. I have added low-dose glipizide and low-dose Januvia to see if we can help from that standpoint. 4. Polycythemia rubra vera. Her numbers are looking pretty good. She has some chronic degree of leukocytosis. 5. Acute on chronic renal insufficiency. We will continue intravenous fluids and monitor. This may be just dehydration. 6. Disposition: I think she may need a Radha-psych evaluation. Her family, the granddaughter and I think she has a daughter, are willing to participate in this, but she says the power of mergers and acquisitions attorney are 2 sons, 1 who is here locally, but 1 is remote from [place] and does not want psych placement as described. The evaluation would at least help us decide if this was mostly psychiatric issue versus other. Her metabolic complaints are mild. Her sugars are elevated, but she is not acidotic from them, and I find that it would be unlikely to be related to that. She has no UTI. Her head CT was unremarkable. If amenable, we will try to get an MRI, but I am not sure she is going to cooperate enough with that. So we may have to look at Radha-psych evaluation. We will continue to follow. PLAN: Pending her clinical status, either Radha-psych or back home to assisted living. cc: Minh Bauer MD
[2019-08-08] MEDS: GLUCOTROL PO SCH (18:35)
[2019-08-08] MEDS: NS 1,000 ML IV SCH (18:35)
[2019-08-08] MEDS: JANUVIA PO SCH (18:35)
--- NOTE | 2019-08-08 20:18 | CARDIOLOGY CONSULTATION ---
DATE: 08/08/2019 HISTORY OF PRESENT ILLNESS: The patient is admitted with confusion. Has a history of mitral stenosis, atrial fibrillation. She lives at [facility] for the last couple of days. Family has noticed increasing confusion and she is disoriented. History was obtained from the chart and discussing with family member. Patient is not oriented at the present time. PAST MEDICAL HISTORY: 1. Atrial fibrillation. 2. Mitral stenosis. 3. Moderate mitral regurgitation. 4. Hypertension. 5. Renal insufficiency. 6. Polycythemia. 7. Has had UTI bladder infections. 8. Diabetes. 9. Multiple falls, 3 times in the last few days and in the past. Family has decided not to anticoagulate the patient given the risk based on her frequent falls. 10. She has had right hip surgery. 11. Cholecystectomy. 12. Has had right leg rods in her femur. 13. She has fusion of C5-C6. 14. She is a resident in the [facility]. PHYSICAL EXAMINATION: Vital Signs: Blood pressure 128/86. Heart: 1st and 2nd heart sounds were heard. There was systolic murmur. Respiratory: Normal air entry. There were no rhonchi. Abdomen: Soft. Central Nervous System: Patient was awake. Moving extremities. Was disoriented. HOME MEDICATIONS: 1. Coumadin. 2. Lopressor 10. 3. Lisinopril. 4. Digoxin 0.125. 5. Doxycycline. 6. Folic acid. 7. Lasix. 8. Oxybutynin. 9. Spironolactone. 10. Seroquel. 11. Simvastatin. ALLERGIES: She is allergic to penicillin. ASSESSMENT AND PLAN: Ms. Sol Huizar is an 88-year-old lady with a history of atrial fibrillation, mitral regurgitation, mitral stenosis, history of frequent falls. Has also polycythemia and has had urinary tract infections in the past. She is brought in with being disoriented and speech is rambling. She has had a CT scan done which did not reveal any acute bleed; however, she was alert and oriented recently and given her atrial fibrillation, cannot rule out stroke. She may need an MRI scan to evaluate and rule out any acute stroke. From a cardiac standpoint, we will discontinue the digoxin given her elevated digoxin levels,, and control rate with beta blockers alone. For hypertension, continue with her lisinopril as well. Her last echocardiogram in November this year revealed ejection fraction of 35%. There was a small pleural effusion. There was no tamponade. She is not anticoagulated as family had made the decision to stop anticoagulation therapy given her frequent falls. cc: Braden Lopez MD
[2019-08-08] MEDS: MELATONIN PO SCH (20:20)
[2019-08-08] MEDS: SEROQUEL PO SCH (20:20)
[2019-08-09] MEDS: HUMALOG SUBQ SCH ×4 (06:15→21:35)
[2019-08-09] MEDS: NS 1,000 ML IV SCH (06:15)
[2019-08-09 07:54] LABS: INR 1.22; PROTIME 15.6 Seconds (11.0-16.0)
[2019-08-09 08:03] LABS: BASO% 0.9 % (0.0-0.8); EOS# 0.22 X1000 (0.0-0.7); EOS% 1.9 % (0.0-10.0); HEMOGLOBIN 13.7 g/dL (12.0-16.0); IMM GRAN# 0.04 X1000 (0.0-0.04); IMM GRAN% 0.3 % (0.0-0.5); LYMPH# 0.98 X1000 (1.2-3.4); LYMPH% 8.4 % (20.5-51.1); MCH 31.1 PG (27-31); MCHC 32.6 g/dL (33-37); MCV 95.5 FL (81-99); MONO% 8.6 % (1.7-9.3); MPV 10.6 FL (7.4-10.4); NEUT% 79.9 % (42.2-75.2); PLT 376 X1000 (130-400); RDW 15.6 % (11.5-14.5); WBC 11.64 X1000 (4.8-10.8)
[2019-08-09] MEDS: GLUCOTROL PO SCH (08:11)
[2019-08-09] MEDS: FOLIC ACID PO SCH (08:13)
[2019-08-09] MEDS: TOPROL XL PO SCH (08:13)
[2019-08-09] MEDS: JANUVIA PO SCH (08:13)
[2019-08-09 08:16] LABS: CALCIUM 8.7 mg/dL (8.8-10.2); CREATININE 1.6 mg/dL (0.5-0.9); POTASSIUM 4.8 mmol/L (3.5-5.1)
[2019-08-09] MEDS ORDERED: LANOXIN PO SCH (09:00)
[2019-08-09] MEDS ORDERED: LOMOTIL PO PRN (10:20)
[2019-08-09] MEDS: ASPIRIN EC PO SCH (11:25)
[2019-08-09] MEDS: LOVENOX SUBQ SCH (18:44)
[2019-08-09] MEDS ORDERED: CALMOSEPTINE OINTMENT TOP PRN (18:44)
[2019-08-09] MEDS: MELATONIN PO SCH (20:01)
[2019-08-09] MEDS: SEROQUEL PO SCH (20:01)
[2019-08-09] MEDS: LIPITOR PO SCH (20:01)
--- NOTE | 2019-08-09 20:46 | PROGRESS NOTE ---
DATE: 08/09/2019 SUBJECTIVE: The patient has no major complaints and she seems pleasantly confused. OBJECTIVE: Vital Signs: Blood pressure is 125/75, heart rate of 66, respiratory rate of 16, temperature 97.8 degrees. Cardiovascular: Regular rate and rhythm. Pulmonary: Bilateral breath sounds. Clear to auscultation. GI: Soft, nontender, nondistended. Bowel sounds are positive. LABORATORY DATA: White count is 11, hemoglobin and hematocrit of 13 and 42, platelets 376,000. INR 1.22. Creatinine 1.6. PROBLEM LIST: 1. Acute ischemic coronary artery. I think that is probably what has caused her mental status changes. She has been off her Coumadin now for a couple of months. They stopped it because of falls. In any case, patient is stabilizing and we will add statin therapy and follow. I do think she will need long-term anticoagulation. I know she is a fall risk, but she has had a stroke and she has atrial fibrillation. I think that is probably just as much of a risk, although that does not always seem to be the local understanding. 2. Atrial fibrillation, rate controlled. Again, I would recommend anticoagulation. 3. Diabetes. Will continue treatment. Apparently, this is a new diagnosis. She is on glipizide and Januvia. 4. Polycythemia rubra vera. Her numbers are looking better. 5. Acute on chronic renal insufficiency. We will continue gentle hydration. DISPOSITION: We are looking at rehab versus going back to assisted living. Her power of deputy county attorney is a son who is in [place], I believe, [place]. He does not want to put her through a lot. He did not really want her to go to [facility] and he really does not want to put her through any major testing, which is reasonable at her age and her level of dementia. He really just wants her to get back to assisted living. They will look at her and decide about that versus rehab, so we will look at that and go from there. I will get a neurology opinion for anticoagulation because I think she should have that, despite this fall risk, and we will continue to monitor. Anticipate discharge soon. cc: Minh Bauer MD
[2019-08-10 07:40] LABS: BASO# 0.08 X1000 (0.0-0.2); BASO% 0.6 % (0.0-0.8); EOS# 0.26 X1000 (0.0-0.7); HEMATOCRIT 43.7 % (37.0-47.0); HEMOGLOBIN 13.8 g/dL (12.0-16.0); IMM GRAN# 0.05 X1000 (0.0-0.04); IMM GRAN% 0.4 % (0.0-0.5); LYMPH# 1.14 X1000 (1.2-3.4); LYMPH% 8.6 % (20.5-51.1); MCH 30.8 PG (27-31); MCHC 31.6 g/dL (33-37); MCV 97.5 FL (81-99); MONO# 1.06 X1000 (0.11-0.59); MPV 10.4 FL (7.4-10.4); NEUT# 10.63 X1000 (1.4-6.5); NEUT% 80.4 % (42.2-75.2); PLT 395 X1000 (130-400); RBC 4.48 XMIL (4.2-5.4); WBC 13.22 X1000 (4.8-10.8)
[2019-08-10 07:43] LABS: INR 1.2; PROTIME 15.3 Seconds (11.0-16.0)
[2019-08-10 07:51] LABS: CALCIUM 8.6 mg/dL (8.8-10.2); CREATININE 1.3 mg/dL (0.5-0.9); POTASSIUM 4.5 mmol/L (3.5-5.1)
[2019-08-10] MEDS: HUMALOG SUBQ SCH ×4 (07:56→21:37)
[2019-08-10] MEDS: GLUCOTROL PO SCH ×2 (07:57→10:03)
[2019-08-10] MEDS: TOPROL XL PO SCH ×2 (07:58→10:03)
[2019-08-10] MEDS: ASPIRIN EC PO SCH ×2 (07:58→10:01)
[2019-08-10] MEDS: JANUVIA PO SCH ×2 (07:58→10:03)
[2019-08-10] MEDS: FOLIC ACID PO SCH ×2 (07:58→10:03)
[2019-08-10] MEDS: TYLENOL PO PRN ×2 (07:59→21:41)
[2019-08-10 08:29] LABS: BASO 1 % (0-1); EOS 1 % (1-10); HYPOCHROM 1+; LARGE PLATELETS OCCASIONAL; LYMPHS 9 % (21-51); MONO 9 % (1-9); SEGS 80 % (42-75)
[2019-08-10] MEDS: NS 1,000 ML IV SCH (12:44)
[2019-08-10] MEDS: LOVENOX SUBQ SCH (17:28)
--- NOTE | 2019-08-10 18:45 | PROGRESS NOTE ---
DATE: 08/10/2019 SUBJECTIVE: The patient reports feeling fine. He continues to be confused. Family who is at bedside reports that she is feeling okay. OBJECTIVE: Vital Signs: Temperature 97.5 degrees, heart rate 63, respiratory rate 18, blood pressure 132/81, O2 saturation 97% on room air. General: This is an 88-year-old female lying in bed, in no acute distress. Cardiovascular: S1, S2 heard. No murmurs, gallops, or rubs. Regular rate and rhythm. Respiratory: Clear bilaterally to auscultation. No work of breathing or using accessory muscles. Abdomen: Soft, nontender to palpation. Bowel sounds present. No organomegaly. Extremities: No clubbing, cyanosis, or edema. Peripheral pulses present in both legs. Neurological Exam: Patient is alert and oriented x3. Moves all 4 extremities. LABORATORY DATA: Reviewed. ASSESSMENT AND PLAN: 1. Acute ischemic stroke. Patient apparently is getting better. The MRI of the brain showed tiny multifocal recent infarctions of both cerebral hemispheres compatible with microvascular ischemia. In any case, we will continue to monitor this patient closely. Family decided to not continue to provide any anticoagulation. Cardiology has evaluated this patient, and they are okay with that decision. 2. Atrial fibrillation. Rate controlled. The patient is not on any anticoagulation as per family request and also Cardiology who has evaluated this patient and is okay with that. At this point, heart rate is controlled. We will continue to monitor. 3. Diabetes mellitus type 2. We will continue with glipizide and Januvia. 4. Polycythemia vera, stable. 5. Acute on chronic renal insufficiency. We will continue with gentle hydration. Continue to monitor this patient closely. DISPOSITION: The patient decided to send this patient to rehab facility. steam table worker has been notified. We will see when we have a bed for this patient. cc: Ryan Silva MD
[2019-08-10] MEDS: MELATONIN PO SCH (19:54)
[2019-08-10] MEDS: SEROQUEL PO SCH (19:55)
[2019-08-10] MEDS: LIPITOR PO SCH (19:55)
--- NOTE | 2019-08-10 20:15 | CONSULTATION ---
DATE OF CONSULTATION: 08/10/2019 HISTORY OF PRESENT ILLNESS: Ms. Huizar is 88 years old and she has had an altered mental state. She is not able to provide a detailed history herself. History is taken from review of the hospital records and from attentive caregiver at the bedside. This caregiver has known Ms. Huizar for approximately 1 year. Ms. Huizar has been forgetful over that time, worse sometimes than others, generally worse when she has any illness. Confusion has been prominent for the last several days. Caregiver has not noticed any focal neurologic feature. There has not been unconsciousness or apparent altered awareness. There is no history of head injury. She has not had previous clinical stroke. She does not use ethanol. Caregiver reports the patient had significant gait difficulty when caregiver came on board a year ago. At that time, she was mainly using walker to transfer from bed to wheelchair. Caregiver has not witnessed a fall, but she has been told of some recent falls. Falls have not been associated with definite injury. There has not been a focal neurologic problem recognized. Lab work this admission shows WBC 11,000 and then 13,000. Blood sugars were initially 300s, recently 100s to 200s range. Initial BUN was 70s; last BUN was 49. Imaging includes brain MRI done without contrast showing several tiny areas of restricted diffusion, mostly in the left hemisphere anteriorly and posteriorly, and in the cerebellum, a little more on the right than the left. Dr. Orozco saw Ms. Huizar in December this year, 8 months ago, and there were no focal findings then. She had presented with an altered mental state. Dr. Orozco's impression was that the patient had a baseline cognitive impairment syndrome. Caregiver is not certain about all of medicines, but she does not think there have been any recent significant medication changes. Computer record shows several medicines on current list, including 4 with potential FRENCH LECTURER effect, including quetiapine, hydrocodone, gabapentin, oxybutynin. Caregiver is not certain whether or not patient has had trial with cholinesterase inhibitor medicine. EXAMINATION: On exam, Ms. Huizar is initially asleep, easily waked, very alert and attentive during my time at the bedside. Speech is not significantly dysarthric. Language function is intact on bedside testing. Remote memory is fair. Recent memory is poor. She could not identify this as a hospital. She could not name the hospital. She guessed the day of the week correctly. She guessed the month wrong by 7 months. She could not name the President. I did not test her cognitive function more thoroughly. Head and neck are unremarkable. There is no meningismus. She has full visual ross tested by confrontational finger counting. Extraocular movements are full. She has slightly limited upgaze typical for age. Facial motility is a little bit diminished bilaterally, but symmetric. Gag is intact. Tongue is midline. She can hear. Shoulder shrug is equal. Strength is normal in the arms and legs. At times, I thought tone might be slightly increased on the right, but that was never consistent. She did rapid alternating movements well with each hand. She did well on scckdi-iq-rhoe testing bilaterally. I did not test her gait. Reflexes are absent at the ankles, 1+ at the wrists symmetrically. Plantar response is silent bilaterally. She reports good pinprick appreciation over the hands. She has a stocking pattern of sensory loss extending near the knee symmetrically. IMPRESSION: 1. History sounds like a baseline cognitive impairment syndrome, probably approaching criteria for diagnosis of dementia/major neurocognitive disorder. We might consider cholinesterase inhibitor trial electively, not urgent. 2. Recent increased confusion, associated with medical illness and hospitalization. She presented with azotemia and hyperglycemia. As these have been improved, she has seemed to be more alert. 3. Imaging evidence of tiny areas of restricted diffusion. These are probably acute ischemic changes, but I do not think these explain her clinical syndrome. I cannot find a consistent focal neurologic deficit on exam. I encouraged her, through caregiver, to continue aggressive management of her cerebrovascular risk factors. Thanks for asking Neurology to see Ms. Huizar. cc: Juice Snyder III, MD [facility]SING FACILITYGalina
--- NOTE | 2019-08-10 22:29 | Carotid Study ---
DATE: 08/09/2019 REQUESTING PROVIDER: Minh Bauer MD TANK CALIBRATOR: Jf. INDICATION: Cerebrovascular accident. EQUIPMENT: PinkelStar Vivid E9 Ultrasound System with a 9L-D transducer. FINDINGS: Complete diagram of ultrasound imaging can be seen in the patient's medical record. The peak systolic velocity noted on the right side is noted to be 121 at the mid internal carotid artery. The peak systolic velocity noted on the left side is 133 at the proximal internal carotid artery. The calculated internal common ratio on the right is 1.50, on the left 1.52. Calculated stenosis on the right is 40% to 59%, left 40% to 59%. There appears to be some scattered irregular plaque noted throughout the carotid artery systems bilaterally. Again this is producing a moderate stenosis of 40% to 59%. Both vertebral arteries were antegrade flow. INTERPRETATION: Atherosclerosis that is scattered and irregular noted to bilateral carotid artery, which is producing a moderate stenosis of 40% to 59% bilaterally. cc: MD Minh Allne MD
[2019-08-11] MEDS: LIPITOR PO SCH (00:08)
[2019-08-11] MEDS: MELATONIN PO SCH (00:08)
[2019-08-11] MEDS: TYLENOL PO PRN ×2 (04:18→11:39)
--- NOTE | 2019-08-11 09:18 | PROGRESS NOTE ---
DATE: 08/11/2019 SUBJECTIVE: Ms. Huizar was admitted. This is an 88-year-old patient of Dr. Loja. She was brought in from [facility]. Last three or four days had noticed increasing confusion, disoriented, rambling speech. Did not seem to have any distress. This has happened before on a couple of occasions. PAST MEDICAL HISTORY: Includes: 1. Chronic atrial fibrillation. Dr. Darvin Fallon is the doctor. 2. Hypertension. 3. Hyperlipidemia. 4. Polycythemia rubra vera. 5. Congestive heart failure with ejection fraction of 35%. 6. Severe mitral regurgitation. 7. She has had bladder infections in the past. 8. Diagnosed with diabetes mellitus type 2. 9. She is fallen several times in the last three days before admission. 10.She has a fusion noted C5-C6. PAST SURGICAL HISTORY: 1. Right hip surgery. 2. Cholecystectomy. 3. She broke her right femur in the past. OBJECTIVE: General: Today is sitting up in a wheelchair. She says she is comfortable. Pleasant. Vital Signs: Temperature 98.9, pulse 76, respirations 18, blood pressure 141/71. HEENT: The pupils are equal and round. LABORATORIES: Blood sugars 153, 151, 207. Electrolytes: Sodium 143, potassium 4.5, chloride 113, BUN 49, creatinine 1.3. ASSESSMENT AND PLAN: 1. Altered mental status. Dr. Snyder has evaluated. It sounds like she has baseline cognitive impairment syndrome. Probably approaching diagnosis of dementia, major neurocognitive disorder. Could consider cholinesterase inhibitor trial electively. 2. Increased confusion with medical illness and hospitalization. She did present with azotemia and hyperglycemia. 3. There are probably some acute ischemic changes but these do not seem to explain her clinical syndrome and Dr. Snyder cannot find any focal neurologic deficit on exam. 4. Significant gait difficulty which started about a year ago. She needs a walker to transfer to bed to wheelchair. 5. Atrial fibrillation, rate is controlled. 6. Diabetes mellitus type 2. Sugars are controlled. 7. Polycythemia vera. Hematocrit and hemoglobin are stable. 8. [id number] kidney injury. I think the plan is to either go to rehab or go home with rehab. Note that her creatinine has come down from 1.6. Review of her orders, I do not see any change. She is on Lipitor 40 mg at bedtime, melatonin 5 mg at bedtime, Seroquel 25 mg at bedtime, acetaminophen 650 mg p.o. q.6 h. p.r.n., aspirin 81 mg a day, Lovenox 40 mg subcutaneously q.24 h. for DVT prophylaxis, folic acid 1 mg daily, Glucotrol 2.5 mg a day, metoprolol 50 mg a day, Januvia 50 mg a day. cc: Saroj Moreau MD
[2019-08-11] MEDS: HUMALOG SUBQ SCH ×2 (09:35→11:40)
[2019-08-11] MEDS: TOPROL XL PO SCH (09:36)
[2019-08-11] MEDS: JANUVIA PO SCH (09:36)
[2019-08-11] MEDS: FOLIC ACID PO SCH (09:36)
[2019-08-11] MEDS: GLUCOTROL PO SCH ×2 (09:36→09:41)
[2019-08-11] MEDS: ASPIRIN EC PO SCH (09:36)
[2019-08-11 11:26] VITALS: BP 151/45
--- NOTE | 2019-08-11 12:41 | PROGRESS NOTE ---
DATE: 08/11/2019 Ms. Huizar has had an uneventful 24 hours. Different caregiver at the bedside today reports no new problems. I reviewed with caregiver my impression that the small ischemic changes on imaging are likely not responsible for her current situation. I agree with current plans as outlined in Attending progress notes. I do not have any new thoughts or new suggestions from Neurology standpoint today. cc: MD FLORI Faustin III
--- NOTE | 2019-08-11 14:02 | DISCHARGE SUMMARY ---
ADMISSION DATE: 08/07/2019 DISCHARGE DATE: 08/11/2019 This is an 88-year-old who was admitted on 08/07/[address] Carlos Loja, family brought her in. She was at [facility] for the last 3 or 4 days. She had noticed increased confusion, she was disoriented, rambling speech, did not seem to be in any distress. They had a couple occasions had her in the hospital at other times and she has had confusion in the past at times and thought she was dehydrated. She has been on Seroquel. PAST MEDICAL HISTORY: 1. Chronic atrial fibrillation. Dr. Fallon follows her. 2. Hypertension. 3. Hyperlipidemia. 4. Polycythemia rubra vera. 5. Congestive heart failure with ejection fraction about 35% last measured. 6. Has had bladder infections in the past. 7. Has been diagnosed with diabetes mellitus type 2. 8. She has fallen about 3 times in the last 3 days. 9. She has what appeared to be fusion at C5-C6 on x-ray. SURGICAL HISTORY: 1. Right hip surgery. 2. Cholecystectomy. 3. She had a meño in her right leg. She broke her femur in the past. ADMISSION DIAGNOSIS: 1. Altered mental status and appeared to have more lethargy. 2. She has underlying chronic atrial fibrillation. CT of her head and cervical spine done on 08/07 no acute injury. No sign of any intracranial bleed. Chest x-ray on 08/07 cardiomegaly, slight increased markings lung base suggested mild interstitial pulmonary edema. Followup brain MRI on 08/08 tiny multifocal recent infarctions the left cerebral hemisphere, both cerebellar hemispheres compatible with microvascular ischemia and advanced chronic disease. Cardiology was asked to see. She has a history of atrial fibrillation, mitral regurgitation mitral stenosis, history of frequent falls and also has polycythemia. She has had urinary tract infections in the past and she was brought in with disoriented speech and rambling. CT scan did not reveal any acute injury. She was alert and oriented recently when Dr. Lopez had seen her so concern was possible new cerebrovascular accident. Carotid Doppler done on 08/09 atherosclerosis that is scattered and irregular noted to be bilateral carotid artery in both carotid arteries and producing moderate stenosis [address] Snyder was asked to see and he saw her on 08/10/2019. History sounds like baseline cognitive impairment syndrome probably approaching criteria for diagnosis of dementia or major cognitive neurocognitive disorder, could consider and might consider cholinesterase inhibitors in the near future but not urgent. She has had recent confusion associated with medical illness in the hospitalization. Presented with some azotemia and hyperglycemia and this is improved. Imaging evidence of tiny areas of restricted diffusion and this is probably acute ischemic changes but do not think these explain her clinical syndrome. She had improved and therapy was involved physical therapy and felt she would benefit from going to rehab. DISCHARGE MEDICATIONS: Aspirin 81 mg a day, Lipitor 40 mg a day, Lomotil 1 four times a day p.r.n. for diarrhea, folic acid 1 mg daily, Glucotrol 2.5 mg daily, Ativan will stop she was getting that q.4 hours p.r.n., melatonin 5 mg at bedtime, Toprol-XL 50 mg a day, Seroquel 25 mg at bedtime, Januvia 50 mg a day. cc: Saroj Moreau MD
== END 2019-08-11 16:10 | DRG 57 ==
LOC: ED 14:31 → SUATTDRO 20:08 → 3N 20:08
PROVIDERS: ATTEND Emergency Medicine